=== PATIENT | female | born 1965 | race Caucasian/White ===

== ENCOUNTER 2018-04-19 16:04 | Emergency (ER) | payer BC, OTHER ==
--- OUTSIDE RECORDS SUMMARY | 2018-04-19 16:06 | XMS REPORT | Clinical Summary ---
:1965 Author Organization [facility] Address [address] [place] [address] Care Team Providers Name Role Phone Tracee Begum MD Primary Care Provider Unavailable Allergies Active Allergy Reactions Severity Noted Date Comments Levofloxacin Other (See Comments) 12/25/2015 Myalgias (muscle pain) bilateral knee pain with BLE swelling Current Medications Prescription Sig. Disp. Refills Start Date End Date Status albuterol (PROAIR Inhale 2 puffs 1 Inhaler 0 03/07/2017 Active HFA,PROVENTIL every 6 (six) HFA,VENTOLIN HFA) 90 hours as needed mcg/actuation for wheezing (or inhaler coughing fits). loratadine Take 1 tablet (10 30 tablet 11 06/21/2016 06/21/2017 (CLARITIN) 10 mg mg total) by tablet mouth daily as needed for allergies (or itching or cough). Active Problems Problem Noted Date Acute sinusitis 12/25/2015 Back pain 12/25/2015 Bronchitis 12/25/2015 Cobalamin deficiency 12/25/2015 Blood pressure elevated without history of HTN 12/25/2015 Fatigue 12/25/2015 Insomnia 12/25/2015 Knee pain 12/25/2015 Overview: bilateral Sinusitis 12/25/2015 Vitamin D deficiency 12/25/2015 Cough 10/23/2015 Family History Medical History Relation Name Comments Hyperlipidemia Father Lymphoma Father Diabetes Mother Hypertension Mother Glaucoma Other grandfather Stroke Other grandfather Relation Name Status Comments Father Mother Other grandfather Alive Social History Tobacco Use Types Packs/Day Years Used Date Never Smoker Alcohol Use Drinks/Week oz/Week Comments No Sex Assigned at Date Recorded Not on file Last Filed Vital Signs Not on file Plan of Treatment Health Maintenance Due Date Last Done Comments CERVICAL CANCER SCREENING 1985 BREAST CANCER SCREENING 2014 COLON CANCER SCREENING 2014 SHINGRIX VACCINE (#1) 2014 INFLUENZA VACCINE 06/13/2018 Results Not on fileafter 04/18/2017 Insurance Payer Benefit Plan / Group Subscriber ID Type Phone Address BCBS BCBS CHOICE PPO/FEDERAL EMPL PPO xxxxxxxxxxxx PPO Home: [address] [phone] [place] [phone]
[2018-04-19] MEDS ORDERED: TETANUS & DIPHTHERIA TOX,ADULT 0.5 ML VIAL ONE (16:12)
--- NOTE | 2018-04-19 16:17 | ER ---
Nurse's Notes [facility] Name: Melissa Ghotra Age: 52 yrs Sex: Female : 1965 Arrival Date: 04/19/2018 Time: 16:05 Bed 10 Private MD: Diagnosis: Laceration without foreign body of knee Presentation: 04/19 16:14 Presenting complaint: Patient states: scrapped R knee on nail and is requesting tetanus ss shot. Transition of care: patient was not received from another setting of care. Onset of symptoms was April 19, 2018. Risk Assessment: Do you want to hurt yourself or someone else? Patient reports no desire to harm self or others. Initial Sepsis Screen: Does the patient meet any 2 criteria? No. Patient's initial sepsis screen is negative. Does the patient have a suspected source of infection? No. Patient's initial sepsis screen is negative. Care prior to arrival: None. 16:14 Method Of Arrival: Ambulatory ss 16:14 Acuity: LINCOLN 5 ss Historical: - Allergies: 16:15 No Known Allergies; ss - PSHx: 16:15 None; ss - Immunization history:: Last tetanus immunization: > 10 years ago. - Social history:: Smoking status: Patient/guardian denies using tobacco. - Ebola Screening: : Patient negative for fever greater than or equal to 101.5 degrees Fahrenheit, and additional compatible Ebola Virus Disease symptoms Patient denies exposure to infectious person Patient denies travel to an Ebola-affected area in the 21 days before illness onset. Screenin:16 Abuse screen: Denies threats or abuse. Denies injuries from another. Nutritional ss screening: No deficits noted. Tuberculosis screening: Never had TB. Fall Risk None identified. Assessment: 16:16 General: Appears in no apparent distress. comfortable, Behavior is calm, cooperative. ss Pain: Complains of pain in right knee Pain currently is 3 out of 10 on a pain scale. Quality of pain is described as tender. Neuro: Level of Consciousness is awake, alert, obeys commands. Respiratory: Airway is patent Respiratory effort is even, unlabored. Derm: Skin is pink, warm \T\ dry. Injury Description: Abrasion sustained to right knee. Vital Signs: 16:15 BP 147 / 95; Pulse 72; Resp 15; Temp 97.1(TE); Pulse Ox 97% on R/A; Height 5 ft. 4 in. ss (162.56 cm); Pain 3/10; ED Course: 16:05 Patient arrived in ED. as 16:07 [facility] Vill[facility]real [facility]C [facility] snw 16:07 Giovanni Pan MD is Attending Physician. snw 16:15 Triage completed. ss 16:15 Arm band placed on right wrist. ss 16:16 Patient has correct armband on for positive identification. Bed in low position. Adult ss w/ patient. 16:18 No provider procedures requiring assistance completed. Patient did not have IV access ss during this emergency room visit. 16:27 Brenda Gallagher, RN is Primary Nurse. ss Administered Medications: 16:14 Drug: Tetanus-Diphtheria Toxoid Adult 0.5 ml {Soccer Commentator: [employer]. Exp: ss 06/14/2020. Lot #: [id number]. } Route: IM; Site: right deltoid; 16:32 Follow up: Response: No adverse reaction ss Outcome: 16:16 Discharge ordered by . snw 16:19 Condition: good ss 16:19 Discharge instructions given to patient, family, Instructed on discharge instructions, follow up and referral plans. Demonstrated understanding of instructions, follow-up care. 16:32 Patient left the ED. ss Signatures: Jennifer Villarreal FNP-C IMPORTER OR EXPORTER-CsnCatie Olvera as Brenda Gallagher, RN RN ss
--- NOTE | 2018-04-19 16:17 | EDPHYS ---
Physician Documentation [facility] Name: Melissa Ghotra Age: 52 yrs Sex: Female : 1965 Arrival Date: 04/19/2018 Time: 16:05 Bed 10 Private MD: ED Physician Giovanni Pan HPI: 04/19 16:10 This 52 yrs old Female presents to ER via Unassigned with complaints of Needs snw Tetanus Shot. 16:10 Onset: The symptoms/episode began/occurred suddenly, just prior to arrival. Associated snw signs and symptoms: The patient has no apparent associated signs or symptoms. The patient has not experienced similar symptoms in the past. The patient has been recently seen by a physician:. Pt visiting loved one in the hospital and turned in her seat, right knee struck a nail sticking out and it lacerated the skin. Wound healing cleaned and bandaged the area, Dr. Jason took a look and the injury and suggested a tetanus immunization. Pt to ED for immunization. Historical: - Allergies: 16:15 No Known Allergies; ss - PSHx: 16:15 None; ss - Immunization history:: Last tetanus immunization: > 10 years ago. - Social history:: Smoking status: Patient/guardian denies using tobacco. - Ebola Screening: : Patient negative for fever greater than or equal to 101.5 degrees Fahrenheit, and additional compatible Ebola Virus Disease symptoms Patient denies exposure to infectious person Patient denies travel to an Ebola-affected area in the 21 days before illness onset. ROS: 16:10 Constitutional: Negative for fever, chills, and weight loss, Eyes: Negative for injury, snw pain, redness, and discharge, ENT: Negative for injury, pain, and discharge, Neck: Negative for injury, pain, and swelling, Cardiovascular: Negative for chest pain, palpitations, and edema, Respiratory: Negative for shortness of breath, cough, wheezing, and pleuritic chest pain, Abdomen/GI: Negative for abdominal pain, nausea, vomiting, diarrhea, and constipation, Back: Negative for injury and pain, : Negative for injury, bleeding, discharge, and swelling, MS/Extremity: Negative for injury and deformity, Skin: Positive for injury to right knee, no rash Neuro: Negative for headache, weakness, numbness, tingling, and seizure. Exam: 16:09 Constitutional: This is a well developed, well nourished patient who is awake, alert, snw and in no acute distress. Head/Face: Normocephalic, atraumatic. Eyes: Pupils equal round and reactive to light, extra-ocular motions intact. Lids and lashes normal. Conjunctiva and sclera are non-icteric and not injected. Cornea within normal limits. Periorbital areas with no swelling, redness, or edema. ENT: Nares patent. No nasal discharge, no septal abnormalities noted. Tympanic membranes are normal and external auditory canals are clear. Oropharynx with no redness, swelling, or masses, exudates, or evidence of obstruction, uvula midline. Mucous membranes moist. Neck: Trachea midline, no thyromegaly or masses palpated, and no cervical lymphadenopathy. Supple, full range of motion without nuchal rigidity, or vertebral point tenderness. No Meningismus. MS/ Extremity: Pulses equal, no cyanosis. Neurovascular intact. Full, normal range of motion. Neuro: Awake and alert, GCS 15, oriented to person, place, time, and situation. Cranial nerves II-XII grossly intact. Motor strength 5/5 in all extremities. Sensory grossly intact. Cerebellar exam normal. Normal gait. 16:09 Skin: Appearance: normal except for affected area, injury, laceration(s), the wound is approximately 4 cm(s), with a depth of 1 cm(s), of the right knee, pt with baseline PVD, mottled lower extremities. 16:09 Neuro: Orientation: is normal, appropriate for stated age, to person, place \T\ time. Vital Signs: 16:15 BP 147 / 95; Pulse 72; Resp 15; Temp 97.1(TE); Pulse Ox 97% on R/A; Height 5 ft. 4 in. ss (162.56 cm); Pain 3/10; MDM: 16:09 Patient medically screened. snw 16:17 Data reviewed: vital signs, nurses notes. Data interpreted: Pulse oximetry: on room air snw is 97 %. Interpretation: normal. Counseling: I had a detailed discussion with the patient and/or guardian regarding: the historical points, exam findings, and any diagnostic results supporting the discharge/admit diagnosis, the presence of at least one elevated blood pressure reading (>120/80) during this emergency department visit, the need for outpatient follow up, to return to the emergency department if symptoms worsen or persist or if there are any questions or concerns that arise at home. Special discussion: I have referred the patient to see his PCP for further evaluation of high blood pressure. Based on the history and exam findings, there is no indication for further emergent testing or inpatient evaluation. I discussed with the patient/guardian the need to see the primary care provider for further evaluation of the symptoms. Administered Medications: 16:14 Drug: Tetanus-Diphtheria Toxoid Adult 0.5 ml {Uat Tester: [employer]. Exp: ss 06/14/2020. Lot #: [id number]. } Route: IM; Site: right deltoid; 16:32 Follow up: Response: No adverse reaction ss Disposition: 04/19/18 16:16 Discharged to Home. Impression: Laceration without foreign body of knee. - Condition is Stable. - Discharge Instructions: Laceration Care, Adult, Non-Sutured Laceration, VIS, Tetanus, Diphtheria (Td) - CDC. - Medication Reconciliation Form, Thank You Letter, Antibiotic Education, Prescription Opioid Use form. - Follow up: Private Physician; When: 2 - 3 days; Reason: Recheck today's complaints, Continuance of care, Re-evaluation by your physician. Follow up: Emergency Department; When: As needed; Reason: Worsening of condition. - Problem is new. - Symptoms are unchanged. Addendum: 04/27/2018 11:27 Co-signature as Attending Physician, Giovanni Pan MD. g s Signatures: Jennifer Villarreal, MACIEJ-C PARTS REPRESENTATIVE-Manw Brenda Gallagher RN RN ss Starr, Gregory, MD MD gs Corrections: (The following items were deleted from the chart) 04/19 16:32 16:16 04/19/2018 16:16 Discharged to Home. Impression: Laceration without foreign body ss of knee. Condition is Stable. Forms are Medication Reconciliation Form, Thank You Letter, Antibiotic Education, Prescription Opioid Use. Follow up: Private Physician; When: 2 - 3 days; Reason: Recheck today's complaints, Continuance of care, Re-evaluation by your physician. Follow up: Emergency Department; When: As needed; Reason: Worsening of condition. Problem is new. Symptoms are unchanged. snw
[2018-04-19 17:07] VITALS: BP 147/95; TEMP 97.1; O2SAT 97
== END 2018-04-19 16:32 | disposition home or self-care (01) ==
LOC: ER 16:04
DX: S81.011A Laceration without foreign body, right knee, initial encounter (principal); W22.8XXA Striking against or struck by other objects, initial encounter; Y93.89 Activity, other specified; Y92.230 Patient room in hospital as the place of occurrence of the external cause; Z23 Encounter for immunization
CPT/HCPCS: 90714; 99283

== ENCOUNTER 2019-02-24 14:40 | Inpatient (IN) | payer BC, OTHER ==
--- OUTSIDE RECORDS SUMMARY | 2019-02-24 14:42 | XMS REPORT | Clinical Summary ---
:1965 Author Organization [facility] Address [address] [place] [address] Care Team Providers Name Role Phone Tracee Begum MD Primary Care Provider Unavailable Allergies Active Allergy Reactions Severity Noted Date Comments Levofloxacin Other (See Comments) 12/25/2015 Myalgias (muscle pain) bilateral knee pain with BLE swelling Medications Medication Sig Dispensed Refills Start Date End Date Status albuterol (PROAIR Inhale 2 puffs 1 Inhaler 0 03/07/2017 Active HFA,PROVENTIL every 6 (six) hours HFA,VENTOLIN HFA) 90 as needed for mcg/actuation inhaler wheezing (or coughing fits). Active Problems Problem Noted Date Acute sinusitis 12/25/2015 Back pain 12/25/2015 Bronchitis 12/25/2015 Cobalamin deficiency 12/25/2015 Blood pressure elevated without history of HTN 12/25/2015 Fatigue 12/25/2015 Insomnia 12/25/2015 Knee pain 12/25/2015 Overview: bilateral Sinusitis 12/25/2015 Vitamin D deficiency 12/25/2015 Cough 10/23/2015 Encounters Date Type Specialty Care Team Description 12/24/2018 Telephone Family Medicine Tracee Begum MD after 02/23/2018 Family History Medical History Relation Name Comments Hyperlipidemia Father Lymphoma Father Diabetes Mother Hypertension Mother Glaucoma Other grandfather Stroke Other grandfather Relation Name Status Comments Father Mother Other grandfather Alive Social History Tobacco Use Types Packs/Day Years Used Date Never Smoker Alcohol Use Drinks/Week oz/Week Comments No Sex Assigned at Date Recorded Not on file Job Start Date Occupation Industry Not on file Not on file Not on file Travel History Travel Start Travel End No recent travel history available. Last Filed Vital Signs Not on file Plan of Treatment Health Maintenance Due Date Last Done Comments CERVICAL CANCER SCREENING 1985 BREAST CANCER SCREENING 2014 COLON CANCER SCREENING 2014 SHINGLES VACCINES (#1) 2014 INFLUENZA VACCINE 06/13/2019 Results Not on fileafter 02/23/2018 Insurance Payer Benefit Plan / Group Subscriber ID Type Phone Address BCBS BCBS CHOICE PPO/FEDERAL EMPL PPO xxxxxxxxxxxx PPO Advance Directives Patient has advance care planning documents on file. For more information, please contact:Twan [id number] [place] [address]
[2019-02-24 16:15] LABS: Absolute Lymphocytes (CBC) 0.9 K/uL (0.7-4.9); Absolute Monocytes 0.7 K/uL (0.1-1.3); Absolute Neutrophil 3.1 K/uL (1.8-8.0); Basophils % 0.8 % (0-1.3); Eosinophils % 0.3 % (0-4.4); Hematocrit 45.9 % (36.0-45.0); Lymphocytes % 18.3 % (15.3-44.8); MPV 7.6 fL (7.6-11.3); Monocytes % 14.7 % (3.3-12.3); RBC Red Blood Cell Count 4.62 M/uL (3.86-4.86)
[2019-02-24 16:18] LABS: Protime INR 1.52
[2019-02-24 16:38] LABS: Albumin 3.3 g/dL (3.4-5.0); Bilirubin Total 3.3 mg/dL (0.2-1.0); Magnesium 2.1 mg/dL (1.8-2.4); Potassium 3.8 mmol/L (3.5-5.1); Protein, Total 6.8 g/dL (6.4-8.2); Troponin (Emerg Dept Use Only) 0.03 ng/mL (0.0-0.045)
[2019-02-24] MEDS ORDERED: FUROSEMIDE 100 MG/10 ML VIAL IV ONE (16:41)
--- NOTE | 2019-02-24 16:43 | ER ---
Nurse's Notes [facility] Name: Melissa Ghotra Age: 53 yrs Sex: Female : 1965 Arrival Date: 02/24/2019 Time: 14:41 Bed 4 Private MD: Diagnosis: Acute systolic (congestive) heart failure;Anasarca Presentation: 02/24 14:57 Presenting complaint: Patient states: "I am just all swollen all over and it's been aa5 like this for months, I used to take a water pill but I don't anymore". Pt reports mild SOB. Pt also reports cough. Pt states "my kidneys went into failure and I had sepsis last time this happened". Transition of care: patient was not received from another setting of care. Onset of symptoms was February 2019. Risk Assessment: Do you want to hurt yourself or someone else? Patient reports no desire to harm self or others. Care prior to arrival: None. 14:57 Method Of Arrival: Wheelchair aa5 14:57 Acuity: LINCOLN 2 aa5 UNDERWEAR WELTER: 14:57 LMP N/A - Irregular menses aa5 Historical: - Allergies: 14:56 No Known Allergies; aa5 - PMHx: 14:56 None; aa5 - PSHx: 14:55 None; aa5 14:56 denisse hand sx; aa5 - Immunization history:: Flu vaccine is not up to date. - Social history:: Smoking status: Patient/guardian denies using tobacco. - Ebola Screening: : No symptoms or risks identified at this time. Screenin:43 Abuse screen: Denies threats or abuse. Nutritional screening: No deficits noted. la1 Tuberculosis screening: No symptoms or risk factors identified. Fall Risk None identified. Assessment: 16:42 General: Appears in no apparent distress. Behavior is calm, cooperative. Pain: Denies la1 pain. Neuro: Level of Consciousness is awake, alert, obeys commands, Oriented to person, place, time, situation. Cardiovascular: Heart tones S1 S2 present. Respiratory: Airway is patent Trachea midline Respiratory effort is even, unlabored, Respiratory pattern is regular, symmetrical, Breath sounds are diminished bilaterally. GI: Abdomen is obese, Bowel sounds present X 4 quads. Abd is soft X 4 quads. : No signs and/or symptoms were reported regarding the genitourinary system. 17:17 Reassessment: assisted patient to bedside commode to void and have small BM. Patient is ss grateful for care received. Awaiting room assignment. Pt back in exam bed on monitors, call light within reach. 18:01 Reassessment: Patient appears in no apparent distress at this time. No changes from la1 previously documented assessment. Patient and/or family updated on plan of care and expected duration. Pain level reassessed. Patient is alert, oriented x 3, equal unlabored respirations, skin warm/dry/pink. Vital Signs: 14:57 BP 102 / 53; Pulse 126; Resp 20 S; Temp 98.1(O); Pulse Ox 97% on R/A; Pain 0/10; aa5 17:25 BP 130 / 74; Pulse 122; Resp 20; Pulse Ox 93% on R/A; la1 18:32 BP 101 / 76; Pulse 122; Resp 16; Pulse Ox 97% on 2 lpm NC; la1 20:09 BP 117 / 71; Pulse 120; Resp 18; Pulse Ox 96% on 2 lpm NC; la1 ED Course: 14:41 Patient arrived in ED. as 14:53 Arm band placed on. aa5 14:58 Triage completed. aa5 15:15 George Ingram, TONYA is Primary Nurse. la1 15:19 Huy Grace PA is PHCP. jr8 15:19 Sandro Robledo MD is Attending Physician. jr8 16:30 XRAY Chest (1 view) In Process Unspecified. EDMS 16:41 Marce Tidwell MD is Hospitalizing Provider. jr8 16:43 Bed in low position. Call light in reach. Side rails up X 1. la1 16:44 Inserted saline lock: 20 gauge in right antecubital area, using aseptic technique. la1 Blood collected. 20:09 No provider procedures requiring assistance completed. Patient admitted, IV remains in la1 place. Administered Medications: 16:30 Drug: Lasix 60 mg Route: IVP; Site: right forearm; bp 18:31 Drug: Metoprolol 5 mg Route: IVP; Site: right forearm; la1 Outcome: 16:42 Decision to Hospitalize by Provider. jr8 20:13 Admitted to Med/surg accompanied by tech, via stretcher, with oxygen, with chart. la1 20:13 Condition: stable 20:13 Instructed on the need for admit. 20:14 Patient left the ED. la1 Signatures: Dispatcher [employer] Catie Rene Audri, RN RN aa5 Brenda Gallagher RN RN ss Huy Grace PA PA jr8 George Ingram RN RN la1 Luis Carlos Guerrero RN RN bp Corrections: (The following items were deleted from the chart) 14:57 Presenting complaint: Patient states: "I am just all swollen all over and it's aa5 been like this for months, I used to take a water pill but I don't anymore". Pt reports mild SOB aa5 14:57 Acuity: LINCOLN 3 aa5 aa5 14:59 Acuity: LINCOLN 2 ss aa5
--- NOTE | 2019-02-24 16:43 | EDPHYS ---
Physician Documentation [facility] Name: Melissa Ghotra Age: 53 yrs Sex: Female : 1965 Arrival Date: 02/24/2019 Time: 14:41 Bed 4 Private MD: GEMMA Physician Sandro Robledo HPI: 02/24 15:30 This 53 yrs old Female presents to ER via Wheelchair with complaints of jr8 Abdominal Swelling. 15:30 The patient presents with abdominal distention that is diffuse. total body swelling. jr8 Onset: The symptoms/episode began/occurred gradually, 1 month(s) ago, and became worse 1 week(s) ago. The symptoms do not radiate. Associated signs and symptoms: Pertinent positives: shortness of breath, chills, Pertinent negatives: nausea and vomiting, chest pain, constipation, diarrhea, dysuria, hematuria. The symptoms are described as achy. Modifying factors: the symptoms are aggravated by movement. Severity of pain: in the emergency department the pain is a 4 / 10. The patient has experienced a previous episode, last year. The patient has not recently seen a physician. Patient reports past history of sepsis with BRANDON last year. She states she presented to this hospital then with similar symptoms of total body swelling and SOB. Last month she started experiencing edema which has become progressively more severe. Reports SOB and orthopnea and chills. . [employer]: 14:57 LMP N/A - Irregular menses aa5 Historical: - Allergies: 14:56 No Known Allergies; aa5 - PMHx: 14:56 None; aa5 - PSHx: 14:55 None; aa5 14:56 denisse hand sx; aa5 - Immunization history:: Flu vaccine is not up to date. - Social history:: Smoking status: Patient/guardian denies using tobacco. - Ebola Screening: : No symptoms or risks identified at this time. ROS: 15:30 ENT: Negative for injury, pain, and discharge, Neck: Negative for injury, pain, and jr8 swelling. 15:30 Cardiovascular: Negative for chest pain, palpitations, and edema. 15:30 Neuro: Negative for headache, weakness, numbness, tingling, and seizure. 15:30 Constitutional: Positive for chills, fatigue, Negative for body aches, malaise, weight loss. 15:30 Respiratory: Positive for cough, shortness of breath, on exertion. 15:30 Abdomen/GI: Positive for abdominal distension, Negative for abdominal pain, nausea, vomiting, and diarrhea, constipation. 15:30 : Negative for urinary symptoms, difficulty urinating. 15:30 Skin: Positive for swelling, Negative for lesions, rash. Exam: 16:26 Constitutional: This is a well developed, well nourished patient who is awake, alert, jr8 and in no acute distress. ENT: Nares patent. No nasal discharge, no septal abnormalities noted. Tympanic membranes are normal and external auditory canals are clear. Oropharynx with no redness, swelling, or masses, exudates, or evidence of obstruction, uvula midline. Mucous membranes moist. 16:26 Neuro: Awake and alert, GCS 15, oriented to person, place, time, and situation. Cranial nerves II-XII grossly intact. Motor strength 5/5 in all extremities. Sensory grossly intact. Cerebellar exam normal. Normal gait. 16:26 Cardiovascular: Rate: tachycardic, Rhythm: regular, Pulses: Pulses are 2+ in right radial artery and left radial artery. Heart sounds: normal, no murmur, no rub, no gallop, Edema: 3+ to entire body (anasarca) . 16:26 Respiratory: the patient does not display signs of respiratory distress, Respirations: tachypnea, Breath sounds: wheezing: inspiratory expiratory that is mild, is heard diffusely. 16:26 Abdomen/GI: Inspection: obese firm, distended, edema noted, Bowel sounds: normal, Palpation: nontender. 16:26 Musculoskeletal/extremity: ROM: no acute changes, Perfusion: the extremity is mottled, noted to have sluggish capillary refill, in bilateral lower extremities. Vital Signs: 14:57 BP 102 / 53; Pulse 126; Resp 20 S; Temp 98.1(O); Pulse Ox 97% on R/A; Pain 0/10; aa5 17:25 BP 130 / 74; Pulse 122; Resp 20; Pulse Ox 93% on R/A; la1 18:32 BP 101 / 76; Pulse 122; Resp 16; Pulse Ox 97% on 2 lpm NC; la1 20:09 BP 117 / 71; Pulse 120; Resp 18; Pulse Ox 96% on 2 lpm NC; la1 MDM: 15:19 Patient medically screened. jr8 16:30 Awaiting: labs results, X-ray results. jr8 16:38 Data reviewed: vital signs, nurses notes, lab test result(s), EKG, radiologic studies, jr8 plain films. Data interpreted: Pulse oximetry: on room air is 97 %. Interpretation: normal. Counseling: I had a detailed discussion with the patient and/or guardian regarding: the historical points, exam findings, and any diagnostic results supporting the discharge/admit diagnosis, lab results, radiology results, the need for further work-up and treatment in the hospital. 16:41 Physician consultation: Marce Tidwell MD was called at 16:41, was contacted at 16:41, jr8 regarding admission, to the telemetry unit. consult, patient's condition, and will see patient. 02/24 15:31 Order name: Basic Metabolic Panel; Complete Time: 16:40 jr8 02/24 15:31 Order name: CBC with Diff; Complete Time: 16:33 jr8 02/24 15:31 Order name: LFT's; Complete Time: 16:40 jr8 02/24 15:31 Order name: Magnesium; Complete Time: 16:40 jr8 02/24 15:31 Order name: NT PRO-BNP; Complete Time: 16:40 jr8 02/24 15:31 Order name: PT-INR; Complete Time: 16:33 jr8 02/24 15:31 Order name: Troponin (emerg Dept Use Only); Complete Time: 16:40 jr8 02/24 15:31 Order name: XRAY Chest (1 view); Complete Time: 17:27 02/24 15:31 Order name: EKG; Complete Time: 15:32 02/24 15:31 Order name: Cardiac monitoring; Complete Time: 15:43 8 02/24 15:31 Order name: EKG - Nurse/Tech; Complete Time: 15:43 02/24 15:31 Order name: IV Saline Lock; Complete Time: 16:27 jr02/24 15:31 Order name: Labs collected and sent; Complete Time: 16:27 jr8 02/24 15:31 Order name: O2 Per Protocol; Complete Time: 15:43 02/24 15:31 Order name: O2 Sat Monitoring; Complete Time: 15:43 Administered Medications: 16:30 Drug: Lasix 60 mg Route: IVP; Site: right forearm; bp 18:31 Drug: Metoprolol 5 mg Route: IVP; Site: right forearm; la1 Disposition: 02/25 09:07 Co-signature as Attending Physician, Sandro Robledo MD I agree with the assessment and dima plan of care. Disposition: 02/24/19 16:42 Hospitalization ordered by Marce Tidwell for Inpatient Admission. Preliminary diagnosis are Acute systolic (congestive) heart failure, Anasarca. - Bed requested for Telemetry/MedSurg (Inpatient). - Status is Inpatient Admission. la1 - Condition is Fair. - Problem is new. - Symptoms have improved. UTI on Admission? No Signatures: Dispatcher [employer] EDFloresita Mullen RN RN dw Anderson, Corey, MD MD cha Calderon, Audri, RN RN aa5 Huy Grace PA PA jr8 George Ingram RN RN la1 Luis Carlos Guerrero RN RN bp Corrections: (The following items were deleted from the chart) 02/24 18:05 16:42 Hospitalization Ordered by Marce Tidwell MD for Inpatient Admission. Preliminary dw diagnosis is Acute systolic (congestive) heart failure; Anasarca. Bed requested for Telemetry/MedSurg (Inpatient). Status is Inpatient Admission. Condition is Fair. Problem is new. Symptoms have improved. UTI on Admission? No. jr8 20:14 18:05 02/24/2019 16:42 Hospitalization Ordered by Marce Tidwell MD for Inpatient la1 Admission. Preliminary diagnosis is Acute systolic (congestive) heart failure; Anasarca. Bed requested for Telemetry/MedSurg (Inpatient). Status is Inpatient Admission. Condition is Fair. Problem is new. Symptoms have improved. UTI on Admission? No. dw
--- NOTE | 2019-02-24 17:23 | RAD REPORT ---
EXAM DESCRIPTION: RAD - Chest Single View - 02/24/2019 4:29 pm CLINICAL HISTORY: Dyspnea COMPARISON: November 2017 TECHNIQUE: AP portable chest image was obtained 1610 hours . FINDINGS: Lung volumes are normal. However, portable technique and very large body habitus limit ass essment. Cardiac silhouette is enlarged but not clearly different from comparison. Body habitus accen tuates this effect. Significant failure or volume overload are doubtful. No peripheral mass or consol idation. No measurable pleural effusion and no pneumothorax. No acute bony abnormality seen. No acute aortic findings suspected. IMPRESSION: Exam has significant limitation as detailed. However, no acute cardiopulmonary finding s een.
[2019-02-24] MEDS ORDERED: METOPROLOL TARTRATE 5 MG/5 ML INJ IV ONE (18:26)
--- NOTE | 2019-02-24 18:52 | P.HP ---
Certification for Inpatient Patient admitted to: Inpatient With expected LOS: >2 Midnights Practitioner: I am a practitioner with admitting privileges, knowledge of patient current condition, hospital course, and medical plan of care. Services: Services provided to patient in accordance with Admission requirements found in Title 42 Section 412.3 of the Code of Federal Regulations Patient History Date of Service: 02/24/19 Reason for admission: Generalized edema History of Present Illness: This is a 53-year-old obese female admitted for generalized edema. Per patient , all of this started when she was admitted for sepsis a few months ago. Since then, she has been retaining fluid. She has complaints of abdominal distention. For the past 1 month, she states that she saw herself swell up. She kept thinking that it would get better but swelling has been progressively worsening, where now she cannot really walk. She states that she cannot lay flat either due to shortness of breath. In the ER, patient was tachycardic to heart rate of 126. She was also tachypneic. Blood pressure was stable. She was satting well on room air though was having shortness of breath with lying back or much exertion. Her labs were remarkable for a elevated BNP and a creatinine of 1.31. Her chest x- ray was without any acute abnormalities. At the time of my exam, She was AAOx3, in no acute distress but significant generalized pitting edema Allergies levofloxacin [From Levaquin] Allergy (Verified 11/12/17 05:16) Hives/Rash No Known Allergies Allergy (Uncoded 11/12/17 09:51) Unknown Home medications list reviewed: Yes Home Medications: Albuterol Neb [Proventil 0.083% Neb Soln] 2.5 mg NEB [id number] PRN #30 amp Cholecalciferol (Vitamin D3) [Vitamin D 5,000 IU Cap*] 5,000 unit PO DAILY #30 cap 11/24/17 Ensure High Protein 237 ml PO BID can 11/24/17 Ipratropium Neb [Atrovent*] 0.5 mg NEB [id number] PRN #30 amp 11/24/17 Mupirocin Oint [Bactroban 2% Ointment*] 1 appl TOP BID #1 tube 11/24/17 Spironolactone [Aldactone*] 25 mg PO DAILY #30 tab 11/24/17 levoFLOXacin [Levaquin*] 500 mg PO DAILY #14 tab 11/24/17 - Past Medical/Surgical History Diabetic: No -: morbid obesity -: lower extremity cellulitis - Social History Alcohol use: No CD- Drugs: No Caffeine use: No Review of Systems 10-point ROS is otherwise unremarkable Physical Examination - Physical Exam General: Alert, In no apparent distress, Oriented x3 HEENT: Atraumatic, PERRLA, Mucous membr. moist/pink, EOMI, Sclerae nonicteric Neck: Supple, 2+ carotid pulse no bruit, No LAD, Without JVD or thyroid abnormality Respiratory: Clear to auscultation bilaterally, Normal air movement Cardiovascular: Regular rate/rhythm, Normal S1 S2, Edema (severe, 3+ generalized pitting edema (including abdomen, LE, Buttocks, back)) Gastrointestinal: Normal bowel sounds, No tenderness Musculoskeletal: No tenderness Integumentary: No rashes Neurological: Normal gait, Normal speech, Normal strength at 5/5 x4 extr, Normal tone, Normal affect - Studies Laboratory Data (last 24 hrs) 02/24/19 16:07: PT 17.6 H, INR 1.52 02/24/19 16:07: WBC 4.7, Hgb 14.9, Hct 45.9 H, Plt Count 133 L 02/24/19 16:07: Sodium 142, Potassium 3.8, BUN 13, Creatinine 1.31 H, Glucose 78 , Magnesium 2.1, Total Bilirubin 3.3 H, AST 18, ALT 19, Alkaline Phosphatase 51 Assessment and Plan - Problems (Diagnosis) (1) Acute renal injury Onset Date: 11/15/17 Current Visit: No Status: Acute (2) Anasarca Current Visit: No Status: Acute (3) Morbidly obese Current Visit: No Status: Chronic - Plan Admit patient to floor with tele. Aggressive diuresis with IV Lasix Supportive care with oxygen as needed Echo ordered, pending Daily weights Strict in and output Repeat chest x-ray in the a.m. Monitor via morning labs DVT prophylaxis: GI prophylaxis: Diet: Fluid restriction Disposition: Pending symptomatic improvement - Advance Directives Does patient have a Living Will: No Does patient have a Durable POA for Healthcare: No
[2019-02-24] MEDS ORDERED: ONDANSETRON 4 MG/2 ML VIAL IV PRN (19:37)
[2019-02-24 20:48] VITALS: BMI 68.5
[2019-02-24 21:37] LABS: Urine Appearance CLEAR; Urine Bilirubin NEGATIVE (NEG); Urine Blood NEGATIVE (NEG); Urine Color YELLOW; Urine Glucose NEGATIVE (NEG); Urine Protein NEGATIVE (NEG); Urine Specific Gravity <=1.005 (1.005-1.030)
[2019-02-24 21:40] LABS: Urine Microscopic Reflex NO UMIC
[2019-02-24] MEDS: ALBUTEROL 2.5 MG/3 ML NEB SOL NEB SCH (22:50)
[2019-02-24] MEDS: IPRATROPIUM BROM 0.5MG/2.5ML NEB SCH (22:51)
[2019-02-25] MEDS: IPRATROPIUM BROM 0.5MG/2.5ML NEB SCH ×4 (02:00→20:00)
[2019-02-25] MEDS: ALBUTEROL 2.5 MG/3 ML NEB SOL NEB SCH ×4 (02:00→20:00)
[2019-02-25 05:34] LABS: Absolute Lymphocytes (CBC) 1.1 K/uL (0.7-4.9); Absolute Monocytes 0.7 K/uL (0.1-1.3); Absolute Neutrophil 3.1 K/uL (1.8-8.0); Basophils % 1.1 % (0-1.3); Eosinophils % 0.5 % (0-4.4); Lymphocytes % 22.4 % (15.3-44.8); Monocytes % 14.1 % (3.3-12.3); RBC Red Blood Cell Count 4.51 M/uL (3.86-4.86)
--- NOTE | 2019-02-25 05:52 | EKG ---
Test Date: 2019-02-24 Test Time: 15:35:43 Superintendent Factory: FREDDY MEASUREMENT RESULTS: Intervals: Rate: 134 IL: 186 QRSD: 78 QT: 274 QTc: 409 [place]: P: IL: 186 QRS: 165 T: 32 INTERPRETIVE STATEMENTS: Sinus tachycardia with premature atrial complexes Possible Right ventricular hypertrophy Possible Lateral infarct, age undetermined Abnormal ECG Compared to ECG 11/12/2017 02:58:30 Early repolarization no longer present Myocardial infarct finding still present Electronically Signed On 02-25-19 05:52:04 CDT by Sergo Pinto
[2019-02-25 05:54] LABS: Albumin 3.2 g/dL (3.4-5.0); Bilirubin Total 2.9 mg/dL (0.2-1.0); Phosphorus 3.5 mg/dL (2.5-4.9); Potassium 3.6 mmol/L (3.5-5.1); Protein, Total 6.5 g/dL (6.4-8.2)
--- NOTE | 2019-02-25 08:16 | EKG ---
Test Date: 2019-02-24 Test Time: 21:57:44 Pin Inserter Regulator: GO MEASUREMENT RESULTS: Intervals: Rate: 125 DC: QRSD: 76 QT: 352 QTc: 508 [place]: P: DC: QRS: 148 T: 93 INTERPRETIVE STATEMENTS: Sinus tachycardia Possible Lateral infarct, age undetermined Low voltage QRS Abnormal ECG Compared to ECG 02/24/2019 15:35:43 Atrial premature complex(es) no longer present Myocardial infarct finding still present Electronically Signed On 02-25-19 08:15:42 CDT by Sergo Pinto
--- NOTE | 2019-02-25 08:21 | RAD REPORT ---
EXAM DESCRIPTION: RAD - Chest Pa And Lat (2 Views) - 02/25/2019 6:54 am CLINICAL HISTORY: volume overload Chest pain. COMPARISON: Chest Single View dated 02/24/2019; Chest Single View dated 11/14/2017; Chest Single View d ated 11/12/2017; Chest Single View dated 11/12/2017 FINDINGS: Mild interstitial prominence is again noted, appearing mildly improved since the comparati ve study. The heart is moderately enlarged in size. No displaced fractures. IMPRESSION: Mild improvement lung aeration since comparative study.
[2019-02-25] MEDS ORDERED: POTASSIUM CL SA 10 MEQ TAB PO ONE (09:00)
[2019-02-25] MEDS ORDERED: FUROSEMIDE 40 MG/4 ML VIAL IV SCH (09:00)
[2019-02-25] MEDS ORDERED: PHENOL 1.4% ORAL SPRAY 180ML MM PRN (09:22)
[2019-02-25] MEDS: ENOXAPARIN 40 MG/0.4 ML SQ SCH (09:24)
[2019-02-25] MEDS: BENZONATATE 100 MG CAP PO PRN ×3 (10:34→23:53)
[2019-02-25] MEDS: METOPROLOL TAR 25 MG TAB PO SCH ×2 (10:34→17:56)
[2019-02-25] MEDS ORDERED: LORazepam 2 MG/ML VIAL IV ONE (11:48)
--- NOTE | 2019-02-25 11:50 | P.PN ---
Subjective Date of Service: 02/25/19 Chief Complaint: Generalized edema Patient seen and examined at bedside. No family at bedside. Chart reviewed and case discussed with nursing staff. States she is feeling anxious today. Reports no respiratory distress at this time. She would like her oxygen on heart monitor off. She is complaining of sore throat and cough that is more bothersome to her than anything. Reports no improvement in swelling/abdominal distension. Review of Systems 10-point ROS is otherwise unremarkable Physical Examination - Vital Signs Temperature: 97.6 F Blood Pressure: 132/84 Pulse: 180 Respirations: 18 Pulse Ox (%): 93 - Physical Exam General: Alert, Oriented x3, Mild distress (Due to anxiety; no respiratory distress noted, denies any pain) Respiratory: Dull, Crackles/rales Cardiovascular: Edema (Generalized, severe 3+ pitting. No change in pitting edema from yesterday.) Gastrointestinal: No tenderness, Distended - Studies Laboratory Data (last 24 hrs) 02/24/19 16:07: PT 17.6 H, INR 1.52 02/24/19 16:07: WBC 4.7, Hgb 14.9, Hct 45.9 H, Plt Count 133 L 02/24/19 16:07: Sodium 142, Potassium 3.8, BUN 13, Creatinine 1.31 H, Glucose 78 , Magnesium 2.1, Total Bilirubin 3.3 H, AST 18, ALT 19, Alkaline Phosphatase 51 Assessment And Plan - Current Problems (Diagnosis) (1) Acute renal injury Onset Date: 11/15/17 Current Visit: No Status: Acute (2) Anasarca Current Visit: No Status: Acute (3) Morbidly obese Current Visit: No Status: Chronic (4) Tachycardia Current Visit: Yes Status: Acute - Plan Anasarca Aggressive diuresis with IV Lasix - IV Lasix increased to 60 mg b.i.d. Supportive care with oxygen as needed Echo ordered, pending Daily weights - no change in weight from admission. Strict in and output (-600 fluid balance overnight) Repeat chest x-ray with mild improvement Acute renal injury Creatinine continues to be elevated, likely secondary to volume overload. Continue IV diuresis. Will continue to monitor with a.m. labs Tachycardia Anxiety Patient tachycardic up to 180's. Unsure if this is secondary to her cardiac disease versus anxiety. EKG ordered Repeat troponin ordered Denies any chest pain at this time, but endorses feeling anxious. 1 time 0.5 mg IV Ativan. Started patient on metoprolol 25 mg twice a day. Will continue to monitor closely. Morbidly obese She will need education regarding lifestyle modifications and medication compliance. DVT prophylaxis: Lovenox GI prophylaxis: None Diet: Fluid restriction Disposition: Pending symptomatic improvement
--- NOTE | 2019-02-25 12:17 | EKG ---
Test Date: 2019-02-25 Test Time: 10:43:52 Machine Printer Hose: ERICK MEASUREMENT RESULTS: Intervals: Rate: 161 OR: QRSD: 80 QT: 352 QTc: 576 [place]: P: OR: QRS: 164 T: 18 INTERPRETIVE STATEMENTS: Undetermined rhythm possible atrial fibrillation or sinus tachycardia with PAC s Possible Right ventricular hypertrophy Septal infarct, age undetermined Possible Lateral infarct, age undetermined Cannot rule out Inferior infarct, age undetermined Low voltage QRS Abnormal ECG Compared to ECG 02/24/2019 21:57:44 Myocardial infarct finding still present Electronically Signed On 02-25-19 12:17:22 CDT by Sergo Pinto
[2019-02-25] MEDS: FUROSEMIDE 40 MG/4 ML VIAL IV SCH (16:17)
[2019-02-26] MEDS: ALBUTEROL 2.5 MG/3 ML NEB SOL NEB SCH ×4 (02:00→19:39)
[2019-02-26] MEDS: IPRATROPIUM BROM 0.5MG/2.5ML NEB SCH ×4 (02:00→19:39)
[2019-02-26] MEDS: METOPROLOL TAR 25 MG TAB PO SCH ×2 (06:50→17:32)
[2019-02-26 07:33] LABS: Absolute Lymphocytes (CBC) 0.9 K/uL (0.7-4.9); Absolute Monocytes 0.7 K/uL (0.1-1.3); Absolute Neutrophil 3.3 K/uL (1.8-8.0); Basophils % 0.4 % (0-1.3); Eosinophils % 0.2 % (0-4.4); Hematocrit 46.1 % (36.0-45.0); Lymphocytes % 17.9 % (15.3-44.8); MPV 7.9 fL (7.6-11.3); RBC Red Blood Cell Count 4.59 M/uL (3.86-4.86)
--- NOTE | 2019-02-26 07:59 | ECHO ---
HEIGHT: 5 ft 4 in WEIGHT: 392 lb 9.6 oz DATE OF STUDY: 02/25/[address]: Marce Tidwell MD 2-DIMENSIONAL: YES M.MODE: YES DOPPLER: YES COLOR FLOW: YES TDS: YES PORTABLE: NO DEFINITY: NO BUBBLE STUDY: NO DIAGNOSIS: CONGESTIVE HEART FAILURE, VOLUME OVERLOAD CARDIAC HISTORY: CATHERIZATION: NO SURGERY: NO PROSTHETIC VALVE: NO PACEMAKER: NO MEASUREMENTS (cm) DIASTOLIC (NORMALS) SYSTOLIC (NORMALS) IVSd 1.1 (0.6-1.2) LA Diam (1.9-4.0) LVEF 50-55% LVIDd 5.5 (3.5-5.7) LVIDs 4.2 (2.0-3.5) %FS 23% LVPWd 1.0 (0.6-1.2) Ao Diam 3.1 (2.0-3.7) 2 DIMENSIONAL ASSESSMENT: RIGHT ATRIUM: NORMAL LEFT ATRIUM: DILATED RIGHT VENTRICLE: NORMAL LEFT VENTRICLE: NORMAL TRICUSPID VALVE: NORMAL MITRAL VALVE: NORMAL PULMONIC VALVE: NORMAL AORTIC VALVE: SCLEROSIS PERICARDIAL EFFUSION: NONE AORTIC ROOT: NORMAL LEFT VENTRICULAR WALL MOTION: LOWER LIMIT OF NORMAL CONTRACTILITY. DOPPLER/COLOR FLOW: TECHNICALLY DIFFICULT STUDY. COMMENTS: TECHNICALLY DIFFICULT STUDY. NORMAL LEFT VENTRICULAR EJECTION FRACTION. DILATED LEFT ATRIUM. AORTIC SCLEROSIS WITH NO AORTIC STENOSIS. TECHNOLOGIST: Bernard MCMAHAN
[2019-02-26 08:12] LABS: Albumin 3.3 g/dL (3.4-5.0); Bilirubin Total 2.9 mg/dL (0.2-1.0); Potassium 3.8 mmol/L (3.5-5.1); Protein, Total 6.8 g/dL (6.4-8.2)
[2019-02-26] MEDS: ENOXAPARIN 40 MG/0.4 ML SQ SCH (10:49)
[2019-02-26] MEDS: FUROSEMIDE 40 MG/4 ML VIAL IV SCH ×2 (10:49→17:00)
[2019-02-26] MEDS: BENZONATATE 100 MG CAP PO PRN ×2 (10:50→17:58)
--- NOTE | 2019-02-26 15:26 | PN ---
Date of Progress Note: 02/26/2019 Subjective: The patient is seen and examined. Chart reviewed and case discussed with RN. The patie nt is still having significant amount of swelling and abdominal distention, some difficulty breathing . Medications: List reviewed. Physical Examination: Vital Signs: Temperature 98, heart rate 105, blood pressure 115/79, respirations 20, O2 93% on 2 L v ia nasal cannula. General: Awake, alert, oriented x3. Some mild distress. Morbidly obese female. BMI 67.4. CV: S1, S2. Sinus tachycardia. Peripheral pulses weak. Respiratory: Diminished breath sounds. No wheezing or stridor. Gastrointestinal: Abdomen is distended. The patient has diffuse anasarca. Bowel sounds are positiv e. Extremities: No clubbing or cyanosis. The patient has peripheral edema 3+, bilateral lower extremit ies. Neuro: Cranial nerves 2 through 12 intact grossly. No focal neurological deficit. Speech is normal . Laboratory Data: Sodium 141, potassium 3.8, chloride 106, CO2 24, BUN 16, creatinine 1.42, glucose 8 5, calcium 8.6. WBC 5, H and H 14.9 and 46.1, platelets 132, neutrophils 66%. Influenza screen is n egative. Echocardiogram shows EF of 50 to 55%; wall motion, lower limit of normal contractility, dil ated left atrium, aortic sclerosis with no aortic stenosis. Assessment And Plan: 1.Diffuse anasarca. We will continue with diuretics with IV Lasix, O2 p.r.n. Echo showed normal EF . Continue strict I's and O's, daily weights, fluid balance is negative. 2.Acute kidney injury. Kidney function worsening, baseline is around probably 1.7. We will continu e to monitor. Avoid NSAIDs. 3.Tachycardia and anxiety. Troponin levels have been negative, maybe secondary to anxiety. Echocar diogram does show reduced contractility, currently on beta-sonny. Heart rate has come down. 4.Morbid obesity, BMI of 67.4. Recommend bariatric surgery, gastric bypass, once her situation has improved. Plan: We will continue diuretics. SA/MODL Voice ID: [id number] Report ID: [id number]
[2019-02-26] MEDS: guaiFENesin 100 MG/5 ML UCUP PO PRN (21:36)
[2019-02-27] MEDS: IPRATROPIUM BROM 0.5MG/2.5ML NEB SCH ×4 (01:20→20:00)
[2019-02-27] MEDS: ALBUTEROL 2.5 MG/3 ML NEB SOL NEB SCH ×4 (01:20→20:00)
[2019-02-27] MEDS: BENZONATATE 100 MG CAP PO PRN ×3 (01:21→23:31)
[2019-02-27 06:09] LABS: Absolute Lymphocytes (CBC) 1.2 K/uL (0.7-4.9); Absolute Monocytes 0.9 K/uL (0.1-1.3); Absolute Neutrophil 3.7 K/uL (1.8-8.0); Basophils % 0.2 % (0-1.3); Hematocrit 49.9 % (36.0-45.0); Lymphocytes % 20.2 % (15.3-44.8); RBC Red Blood Cell Count 4.94 M/uL (3.86-4.86)
[2019-02-27] MEDS: METOPROLOL TAR 25 MG TAB PO SCH ×2 (06:15→17:44)
[2019-02-27 06:43] LABS: Albumin 3.4 g/dL (3.4-5.0); Bilirubin Total 3.7 mg/dL (0.2-1.0); Potassium 3.6 mmol/L (3.5-5.1); Protein, Total 7.2 g/dL (6.4-8.2)
[2019-02-27] MEDS ORDERED: POTASSIUM CL SA 10 MEQ TAB PO ONE (08:30)
[2019-02-27] MEDS: FUROSEMIDE 40 MG/4 ML VIAL IV SCH ×2 (09:22→17:00)
[2019-02-27] MEDS: ENOXAPARIN 40 MG/0.4 ML SQ SCH (09:22)
--- NOTE | 2019-02-27 17:41 | RAD REPORT ---
EXAM DESCRIPTION: US - Renal Ultrasound-Complete - 02/27/2019 5:35 pm CLINICAL HISTORY: Acute renal insufficiency FINDINGS: The examination is limited secondary to body habitus The right kidney measures 11 cm with an increased echotexture. The left kidney measures 11 cm with an increased echotexture. Hydronephrosis is not seen. A bladder poorly evaluated as it is decompressed IMPRESSION: Increased renal echotexture consistent with parenchymal disease
--- NOTE | 2019-02-27 20:09 | PN ---
Date of Progress Note: 02/27/2019 History: The patient is seen and examined, chart reviewed, and case discussed with RN. The patient is still having significant shortness of breath and edema. The patient did put out 500 mL yesterday with negative urine output. Medications: List reviewed. Physical Examination: Vital Signs: Temperature 98.6, heart rate 117, blood pressure 82/55, respirations 18, O2 96% on 3 L via nasal cannula. General: Awake, alert, oriented x3. Ill-appearing female, morbidly obese, Has some mild respiratory distress. CV: S1, S2. Sinus tachycardia. Peripheral pulses present. Respiratory: Diminished breath sounds. Crackles heard. No wheezing or stridor. Gastrointestinal: Abdomen is soft, nontender, nondistended. Positive bowel sounds. Extremities: No clubbing, cyanosis. The patient has diffuse edema in upper and lower extremities. Neuro: Nonfocal. Laboratory Data: Sodium 138, potassium 3.6, chloride 103, CO2 26, BUN 18, creatinine 1.68, glucose 85, calcium 8.8. AST 725, ALT 360. WBC 5.8, H and H 16.1 and 49.9, and platelets 146. Assessment And Plan: A 53-year-old female with: 1. Diffuse anasarca. Continue on diuretics. The patient does have negative fluid balance. Weight has decreased from 399 to 395. Echo does show normal ejection fraction. Continue with strict I's and O's, daily weights. 2. Acute kidney injury. Creatinine is 1.68 with a baseline close to 1.3 or so. We will consult Nephrology. Avoid NSAIDs. 3. Sinus tachycardia: Currently on beta-sonny. 4. Generalized anxiety disorder. 5. Morbid obesity, body mass index >40. 6. Deep vein thrombosis prophylaxis addressed. 7. Elevated liver enzymes, likely from passive congestion. Plan: Renal ultrasound. Nephrology consultation. SA/MODL Voice ID: [id number] Report ID: [id number] MTDD
[2019-02-28] MEDS: ALBUTEROL 2.5 MG/3 ML NEB SOL NEB SCH ×4 (02:00→19:28)
[2019-02-28] MEDS: IPRATROPIUM BROM 0.5MG/2.5ML NEB SCH ×4 (02:00→19:28)
[2019-02-28] MEDS: guaiFENesin 100 MG/5 ML UCUP PO PRN (04:36)
[2019-02-28] MEDS: METOPROLOL TAR 25 MG TAB PO SCH ×2 (05:45→19:48)
[2019-02-28 06:27] LABS: Absolute Lymphocytes (CBC) 1.3 K/uL (0.7-4.9); Absolute Monocytes 0.9 K/uL (0.1-1.3); Absolute Neutrophil 3.9 K/uL (1.8-8.0); Basophils % 0.5 % (0-1.3); Eosinophils % 0.1 % (0-4.4); Hematocrit 48.5 % (36.0-45.0); Lymphocytes % 20.8 % (15.3-44.8); MPV 8.2 fL (7.6-11.3); RBC Red Blood Cell Count 4.79 M/uL (3.86-4.86)
[2019-02-28 06:49] LABS: Albumin 3.3 g/dL (3.4-5.0); Bilirubin Total 3.2 mg/dL (0.2-1.0); Potassium 4.2 mmol/L (3.5-5.1); Protein, Total 6.6 g/dL (6.4-8.2)
[2019-02-28] MEDS ORDERED: MANNITOL 25% 12.5 GM/50 ML VIAL IV ONE ×2 (08:45→18:00)
[2019-02-28] MEDS: FUROSEMIDE 40 MG/4 ML VIAL IV SCH ×2 (09:00→17:18)
[2019-02-28] MEDS: ENOXAPARIN 40 MG/0.4 ML SQ SCH (10:14)
[2019-02-28] MEDS: NYSTATIN PWDR 100000 UNIT/GM TOP SCH ×2 (14:02→20:47)
--- NOTE | 2019-02-28 16:20 | PN ---
Date of Progress Note: 02/28/2019 Patient is seen and examined. Chart reviewed and case discussed with RN and Dr. Luu. Patient is still having significant amount of anasarca. Her weight has decreased. She is still requiring supplemental oxygen and does not feel well. Medications: List reviewed. Physical Examination: Vital Signs: Temperature 97.1, heart rate 112, blood pressure 100/65, respirations 18, O2 of 95% on 4 L via nasal cannula. General: Awake, alert, oriented x3, ill-appearing female, morbidly obese, BMI of 49.7. CV: S1 and S2. Sinus tachycardia. Peripheral pulses present. Respiratory: Diminished breath sounds. Some crackles present. Gastrointestinal: Abdomen is distended. Bowel sounds positive. No tenderness. Extremities: No clubbing, cyanosis. Patient has diffuse edema of bilateral upper and lower extremities. Skin: Patient has tinea corporis in the abdominal skin folds and gluteal folds. Laboratory Data: Sodium 137, potassium 4.2, chloride 102, CO2 of 25, BUN 22, creatinine 1.6, glucose 88, calcium 8.7, AST 647, ALT 400. WBC 6.1, H and H 15.6 and 48.5, platelets 142. Renal ultrasound shows increased renal echotexture consistent with parenchymal disease. No hydronephrosis. Assessment And Plan: A 53-year-old female with: 1. Diffuse anasarca. We will continue on diuretics. Appreciate Dr. Luu' s input. He has started some mannitol. Patient's daily weight has gone down again to 389 from 395. We will continue to monitor I's and O's and daily weights. 2. Acute kidney injury. Creatinine level is still elevated above patient's baseline. We will continue to monitor. Avoid NSAIDs. 3. Sinus tachycardia. Continue beta-sonny. 4. Generalized anxiety disorder. 5. Morbid obesity. BMI 49.7. 6. Elevated liver enzymes, likely due to anasarca. We will continue to monitor. Slightly improved today. 7. DVT prophylaxis with Lovenox. SA/MODL Voice ID: [id number] Report ID: [id number] JOE
--- NOTE | 2019-02-28 17:50 | P.CNS ---
Date of Consult: 02/28/19 Reason for Consult: BRANDON with Anasarca Requesting Physician: Bernadette Cortez Chief Complaint: Generalized edema History of Present Illness: This is a 53-year-old obese female admitted for generalized edema. Per patient , all of this started when she was admitted for sepsis a few months ago. Since then, she has been retaining fluid. She has complaints of abdominal distention. For the past 1 month, she states that she saw herself swell up. She kept thinking that it would get better but swelling has been progressively worsening, where now she cannot really walk. She states that she cannot lay flat either due to shortness of breath. 15:30 This 53 yrs old Female presents to ER via Wheelchair with complaints of jr8 Abdominal Swelling. 15:30 The patient presents with abdominal distention that is diffuse. total body swelling. jr8 Onset: The symptoms/episode began/occurred gradually, 1 month(s) ago, and became worse 1 week(s) ago. The symptoms do not radiate. Associated signs and symptoms : Pertinent positives: shortness of breath, chills, Pertinent negatives: nausea and vomiting, chest pain, constipation, diarrhea, dysuria, hematuria. The symptoms are described as achy. Modifying factors: the symptoms are aggravated by movement. Severity of pain: in the emergency department the pain is a 4 / 10. The patient has experienced a previous episode, last year. The patient has not recently seen a physician. Patient reports past history of sepsis with BRANDON last year. She states she presented to this hospital then with similar symptoms of total body swelling and SOB. Last month she started experiencing edema which has become progressively more severe. Reports SOB and orthopnea and chills. Allergies No Known Allergies Allergy (Verified 02/24/19 20:50) Home medications list reviewed: Yes Home Medications: NK [No Home Meds] 02/24/19 - Past Medical/Surgical History Diabetic: No -: morbid obesity -: lower extremity cellulitis -: kidney issues due to sepsis last 2017 -: hand surgeries - Family History Mother Medical History: Hypertension, Cancer Father Medical History: Cancer - Social History Smoking Status: Former smoker Alcohol use: No CD- Drugs: No Caffeine use: No Place of Residence: Home Review of Systems 10-point ROS is otherwise unremarkable General: Weakness, Malaise Respiratory: SOB with Excertion Cardiovascular: Edema Integumentary: Lesions, Bruising Neurological: Weakness Physical Examination Temp Pulse Resp BP Pulse Ox 97.8 F 101 H 20 101/65 91 02/28/19 12:00 02/28/19 17:18 02/28/19 12:00 02/28/19 17:18 02/28/19 12:00 General: Oriented x3, Cooperative HEENT: Mucous membr. moist/pink Neck: Supple, No LAD Respiratory: Expiratory wheezes Cardiovascular: Regular rate/rhythm, No rubs, Edema Gastrointestinal: Soft and benign, Non-distended, No guarding Musculoskeletal: No clubbing, No contractures Integumentary: No rashes, Skin breakdown, Skin lesion, Cyanosis Blood work reviewed in the chart. Initial serum creatinine 1.31 Imagings Data: 2 DIMENSIONAL ASSESSMENT: RIGHT ATRIUM: NORMAL LEFT ATRIUM: DILATED RIGHT VENTRICLE: NORMAL LEFT VENTRICLE: NORMAL TRICUSPID VALVE: NORMAL MITRAL VALVE: NORMAL PULMONIC VALVE: NORMAL AORTIC VALVE: SCLEROSIS PERICARDIAL EFFUSION: NONE AORTIC ROOT: NORMAL LEFT VENTRICULAR WALL MOTION: LOWER LIMIT OF NORMAL CONTRACTILITY. DOPPLER/COLOR FLOW: TECHNICALLY DIFFICULT STUDY. COMMENTS: TECHNICALLY DIFFICULT STUDY. NORMAL LEFT VENTRICULAR EJECTION FRACTION. DILATED LEFT ATRIUM. AORTIC SCLEROSIS WITH NO AORTIC STENOSIS. EXAM DESCRIPTION: US - Renal Ultrasound-Complete - 02/27/2019 5:35 pm CLINICAL HISTORY: Acute renal insufficiency FINDINGS: The examination is limited secondary to body habitus The right kidney measures 11 cm with an increased echotexture. The left kidney measures 11 cm with an increased echotexture. Hydronephrosis is not seen. A bladder poorly evaluated as it is decompressed IMPRESSION: Increased renal echotexture consistent with parenchymal disease. EXAM DESCRIPTION: RAD - Chest Pa And Lat (2 Views) - 02/25/2019 6:54 am CLINICAL HISTORY: volume overload Chest pain. COMPARISON: Chest Single View dated 02/24/2019; Chest Single View dated 11/14/2017 ; Chest Single View dated 11/12/2017; Chest Single View dated 11/12/2017 FINDINGS: Mild interstitial prominence is again noted, appearing mildly improved since the comparative study. The heart is moderately enlarged in size. No displaced fractures. IMPRESSION: Mild improvement lung aeration since comparative study. Conclusions/Impression: A/ BRANDON likely CRS. CKD III. Acute hepatitis of unclear etiology. Hepatic congestion? Hypoalbuminemia. Secondary Polycythemia. Diastolic CHF, A/C. Anasarca. Hypervolemia. Hypotension of unclear etiology. Distal LE Cyanosis. Morbid Obesity. P/ Continue current POC and Medications. The patient would benefit from aggressive diuresis but her treatment is limited by severe hypotension. Give Mannitol as an osmotic diuretic. Continue Lasix as tolerated. Start Midrodrine due to hypotension; titrate as needed. No NSAIDs. AM labs. Daily weight. Case discussed with Dr. Cortez. Thank you kindly for the consultation.
[2019-02-28] MEDS: MIDODRINE HCL 5 MG TABLET PO SCH ×2 (18:10→20:46)
[2019-02-28 22:49] LABS: UR MICROALBUMIN 1.9 mg/dL (< 1.9)
[2019-03-01] MEDS: IPRATROPIUM BROM 0.5MG/2.5ML NEB SCH ×4 (02:05→19:56)
[2019-03-01] MEDS: ALBUTEROL 2.5 MG/3 ML NEB SOL NEB SCH ×4 (02:05→19:56)
[2019-03-01 05:34] LABS: Absolute Lymphocytes (CBC) 1.3 K/uL (0.7-4.9); Absolute Monocytes 0.8 K/uL (0.1-1.3); Basophils % 0.4 % (0-1.3); Eosinophils % 0.4 % (0-4.4); Hematocrit 49.5 % (36.0-45.0); Lymphocytes % 21.7 % (15.3-44.8); Monocytes % 12.9 % (3.3-12.3); RBC Red Blood Cell Count 4.86 M/uL (3.86-4.86)
[2019-03-01] MEDS: METOPROLOL TAR 25 MG TAB PO SCH (06:00)
[2019-03-01 06:24] LABS: Albumin 3.4 g/dL (3.4-5.0); Bilirubin Total 2.6 mg/dL (0.2-1.0); Phosphorus 3.7 mg/dL (2.5-4.9); Potassium 3.6 mmol/L (3.5-5.1); Thyroid Stimulating Hormone 1.3 uIU/mL (0.360-3.740); Uric Acid 13.8 mg/dL (2.6-6.0)
[2019-03-01] MEDS ORDERED: COSYNTROPIN 0.25 MG VIAL IV ONE (07:45)
[2019-03-01] MEDS ORDERED: SODIUM CHLORIDE 0.9% 10ML INJ IV ONE (07:45)
[2019-03-01] MEDS: POTASSIUM CL SA 10 MEQ TAB PO ONE (08:46)
[2019-03-01] MEDS: ENOXAPARIN 40 MG/0.4 ML SQ SCH (08:46)
[2019-03-01] MEDS: MIDODRINE HCL 5 MG TABLET PO SCH ×4 (08:46→21:20)
[2019-03-01] MEDS: FUROSEMIDE 40 MG/4 ML VIAL IV SCH ×3 (08:51→17:48)
[2019-03-01] MEDS: NYSTATIN PWDR 100000 UNIT/GM TOP SCH ×2 (08:53→21:00)
--- NOTE | 2019-03-01 10:19 | P.CNS ---
Date of Consult: 03/01/19 Chief Complaint: Generalized edema RESPIRATORY FAILURE History of Present Illness: Patient is 53 years of age admitted with generalized edema and anasarca as been sick for a month no prior history of cardiopulmonary problems is done progressively worse all of the recent cold-like symptom on admission patient was tachypneic short of breath currently on oxygen also has renal insufficiency patient does not smoke denies any cough sputum hemoptysis Allergies No Known Allergies Allergy (Verified 02/24/19 20:50) Home Medications: NK [No Home Meds] 02/24/19 - Past Medical/Surgical History Diabetic: No -: morbid obesity -: lower extremity cellulitis -: kidney issues due to sepsis last 2017 -: hand surgeries - Family History Mother Medical History: Hypertension, Cancer Father Medical History: Cancer - Social History Smoking Status: Former smoker Alcohol use: No CD- Drugs: No Caffeine use: No Place of Residence: Home Review of Systems General: Weakness Respiratory: Shortness of Breath Cardiovascular: Edema Physical Examination Temp Pulse Resp BP Pulse Ox 96.9 F 122 H 20 99/55 L 96 03/01/19 08:00 03/01/19 08:51 03/01/19 08:00 03/01/19 08:51 03/01/19 08:00 General: Alert, Moderate distress HEENT: Atraumatic Neck: Supple Respiratory: Expiratory wheezes Cardiovascular: Regular rate/rhythm, Edema (Gross lower extremity edema 1 in the left foot) Gastrointestinal: Normal bowel sounds, Soft and benign - Problems (1) Anasarca Current Visit: No Status: Acute Plan: Patient is 53 years of age admitted with gross anasarca she has renal insufficiency I suspect that she has obesity hyperventilation syndrome or obstructive sleep apnea of ordered ABGs the probably going to need a BiPAP patient is polycythemic is not on home oxygen patient has chronic renal insufficiency chest x-ray shows impressive cardiomegaly he probably has underlying diastolic dysfunction echocardiogram done I have ordered ABG tsh is satisfactory urinalysis was negative I have ordered some blood cultures patient has a wound in the right foot is quite possible that she may be septic
[2019-03-01] MEDS: BENZONATATE 100 MG CAP PO PRN (12:20)
--- NOTE | 2019-03-01 12:59 | RAD REPORT ---
EXAM DESCRIPTION: US - Lower Extremity Arterial Bilat - 03/01/2019 12:49 pm CLINICAL HISTORY: No pulses within the feet COMPARISON: None FINDINGS: Limited examination was performed to assess dorsalis pedis and posterior tibial arteries. Right and left dorsalis pedis and right and left posterior tibial arteries are patent and demonstrate biphasic blood flow. IMPRESSION: Blood flow is visualized within the dorsalis pedis and posterior tibial arteries bilater ally. Mild distal arterial disease is present
--- NOTE | 2019-03-01 13:41 | RAD REPORT ---
EXAM DESCRIPTION: US - Abdomen Exam Complete - 03/01/2019 12:49 pm CLINICAL HISTORY: Abdominal pain/elevated liver function test enzymes FINDINGS: The liver has an increased echotexture. It is poorly evaluated. Gallbladder is not imaged. Pancreas is poorly seen secondary to body habitus. Kidneys were evaluated on the February 27, 2019 exam The abdominal aorta and inferior vena cava not imaged IMPRESSION: Increased hepatic echotexture consistent with fatty infiltration or inflammation. Examination is extremely suboptimal secondary to body habitus. If clinically indicated further evalua tion with CT scan could be obtained
[2019-03-01 15:18] LABS: Arterial Blood Carboxyhemoglob 1.1 % (0-1.5); Blood Gas Oxyhemoglobin 84.2 % (94-97); Blood O2 Saturation 85.6 % (92-98.5)
--- NOTE | 2019-03-01 16:22 | RAD REPORT ---
EXAM DESCRIPTION: RAD - Chest Single View - 03/01/2019 3:59 pm CLINICAL HISTORY: PICC line placement COMPARISON: February 25 FINDINGS: Portable chest was obtained following placement of a right upper extremity PICC line. The catheter tip is in the proximal SVC.
[2019-03-01] MEDS ORDERED: MANNITOL 25% 12.5 GM/50 ML VIAL IV ONE (16:30)
[2019-03-01] MEDS ORDERED: AMILORIDE HCL 5 MG TABLET PO ONE (16:30)
[2019-03-01] MEDS ORDERED: POTASSIUM CL SA 10 MEQ TAB PO ONE (17:00)
--- NOTE | 2019-03-01 17:05 | PN ---
Date of Progress Note: 03/01/2019 History: The patient is seen and examined. Chart reviewed and case discussed with RN, Dr. Treadwell, Dr. Luu, and Dr. Pedraza. The patient continues to have severe shortness of breath. Does not m ove from her recliner. Has been having her feet down with severe edema cutting off her circulation. The patient also refusing labs draws initially due to being stuck multiple times. Medications: List reviewed. Physical Examination: Vital Signs: Temperature 96.9, heart rate 122, blood pressure 99/55, respirations 20, O2 96% on 4 L via nasal cannula. General: Awake, alert, oriented x3, ill-appearing female, morbidly obese. BMI 66. CV: S1, S2. Sinus tachycardia. Pulses not palpable. Respiratory: Diminished breath sounds. Crackles heard. Gastrointestinal: Abdomen is distended. Bowel sounds positive. No tenderness to palpation. Extremities: The patient has diffuse anasarca throughout the body including upper and lower extremit ies. Neurologic: Nonfocal. Skin: The patient has discoloration of her feet with some cyanosis present. Laboratory Data: Sodium 138, potassium 3.6, chloride 101, CO2 29, BUN 23, creatinine 1.59, glucose 8 6, uric acid 13.8, calcium 8.6, phosphorus 3.7, magnesium 2. AST 398, ALT 348, total bilirubin [place] 2[place] [address], albumin 3.4, TSH 1.3. Procalcitonin and cortisol levels pending. WBC 6.2, H and H 16.1 and 49.5, platelets 155. ABG pending. Hepatitis panel pending. Blood cultures being obtained . Assessment And Plan: A 53-year-old female with: 1.Diffuse anasarca, on Lasix and mannitol. The patient not tolerating higher doses due to her blood pressure. Has been started on midodrine. The patient's weight continues to decrease, currently at 387 pounds. We will continue to monitor I's and O's and daily weights. Appreciate Dr. Luu's inp ut. 2.Acute kidney injury. Creatinine currently elevated, stabilized. We will avoid NSAIDs and continu e to monitor. 3.Acute on chronic diastolic heart failure. Continue diuretics. Cardiology has been consulted. Ec hocardiogram reviewed. 4.Polycythemia, unclear etiology. 5.Morbid obesity. BMI 66. 6.Elevated liver enzymes and total bilirubin, likely due to anasarca. We will check abdominal ultra sound. 7.Deep venous thrombosis prophylaxis with Lovenox renally dosed. 8.Right foot wound. We will obtain blood cultures. Check procalcitonin level. No signs of sepsis. The patient's white count is normal. The patient has been afebrile, is hypotensive. 9.Hypotension. Metoprolol discontinued. The patient is still tachycardic. Rule out sepsis. 10.Lower extremity arterial compromise. Pulses nonpalpable or dopplerable. We will obtain arterial Doppler test, likely due to severe anasarca. We will elevate the patient's feet. Plan: Overall guarded prognosis. /CHENG Voice ID: [id number] Report ID: [id number]
--- NOTE | 2019-03-01 21:05 | P.PN ---
Date of Service: 03/01/19 Vital Signs Temp Pulse Resp BP Pulse Ox 97.2 F 125 H 20 109/60 90 L 03/01/19 16:00 03/01/19 17:48 03/01/19 16:00 03/01/19 17:48 03/01/19 16:00 Medications Albuterol Sulfate (Proventil 0.083% Neb Soln) 2.5 mg NEB [id number] SMITA Stop: 03/26/19 20:01 Last Admin: 03/01/19 19:56 Dose: 2.5 mg Amiloride HCl (Midamor) 10 mg PO BIDL SMITA Stop: 04/01/19 09:01 Benzonatate (Tessalon Perle) 100 mg PO TID PRN PRN Reason: COUGH Stop: 03/27/19 09:23 Last Admin: 03/01/19 12:20 Dose: 100 mg Calcitriol (Rocaltrol) 0.5 mcg PO DAILY SMITA Stop: 04/01/19 09:01 Cholecalciferol (Vitamin D 5,000 Iu Cap) 5,000 unit PO DAILY SMITA Stop: 04/01/19 09:01 Enoxaparin Sodium (Lovenox 40 Mg Inj) 40 mg SQ DAILY SMITA Stop: 03/27/19 09:01 Last Admin: 03/01/19 08:46 Dose: 40 mg Furosemide (Lasix) 40 mg IV BIDL [facility] Stop: 03/31/19 17:38 Last Admin: 03/01/19 17:48 Dose: 40 mg Guaifenesin (Robitussin 100mg/5ml) 100 mg PO QID PRN PRN Reason: COUGH Stop: 03/28/19 20:32 Last Admin: 02/28/19 04:36 Dose: 100 mg Ipratropium [place] (Atrovent Neb) 0.5 mg NEB [id number] [facility] Stop: 03/26/19 20:01 Last Admin: 03/01/19 19:56 Dose: 0.5 mg Midodrine (Proamatine) 10 mg PO TID [facility] Stop: 03/31/19 10:01 Last Admin: 03/01/19 14:00 Dose: 10 mg Nystatin (Mycostatin (Powder)) 1 appl TOP BID SMITA Stop: 03/30/19 09:07 Last Admin: 03/01/19 08:53 Dose: 1 appl Ondansetron HCl (Zofran) 4 mg IV Q6HP PRN PRN Reason: NAUSEA / VOMITING Stop: 03/26/19 19:38 Phenol (Phenaseptic [place]) 2 appl MM Q4H PRN PRN Reason: SORE THROAT Stop: 03/27/19 09:23 Sodium Chloride (Normal Saline Flush) 10 ml IV BID SMITA Stop: 03/26/19 21:01 Last Admin: 03/01/19 08:53 Dose: 10 ml Assessment/ Plan: Nephrology. CPS stable without CP. +SOB +RG +urine ouput. Persistent edema. No acute events overnight. Vitals, medications, blood work and imaging reviewed in the chart. General: Oriented x3, Cooperative HEENT: Mucous membr. moist/pink Neck: Supple, No LAD Respiratory: Expiratory wheezes Cardiovascular: Regular rate/rhythm, No rubs, Edema Gastrointestinal: Soft and benign, Non-distended, No guarding Musculoskeletal: No clubbing, No contractures Integumentary: No rashes, Skin breakdown, Skin lesion, Cyanosis Blood work reviewed in the chart. Initial serum creatinine 1.31 Imagings Data: 2 DIMENSIONAL ASSESSMENT: RIGHT ATRIUM: NORMAL LEFT ATRIUM: DILATED RIGHT VENTRICLE: NORMAL LEFT VENTRICLE: NORMAL TRICUSPID VALVE: NORMAL MITRAL VALVE: NORMAL PULMONIC VALVE: NORMAL AORTIC VALVE: SCLEROSIS PERICARDIAL EFFUSION: NONE AORTIC ROOT: NORMAL LEFT VENTRICULAR WALL MOTION: LOWER LIMIT OF NORMAL CONTRACTILITY. DOPPLER/COLOR FLOW: TECHNICALLY DIFFICULT STUDY. COMMENTS: TECHNICALLY DIFFICULT STUDY. NORMAL LEFT VENTRICULAR EJECTION FRACTION. DILATED LEFT ATRIUM. AORTIC SCLEROSIS WITH NO AORTIC STENOSIS. EXAM DESCRIPTION: US - Renal Ultrasound-Complete - 02/27/2019 5:35 pm CLINICAL HISTORY: Acute renal insufficiency FINDINGS: The examination is limited secondary to body habitus The right kidney measures 11 cm with an increased echotexture. The left kidney measures 11 cm with an increased echotexture. Hydronephrosis is not seen. A bladder poorly evaluated as it is decompressed IMPRESSION: Increased renal echotexture consistent with parenchymal disease. EXAM DESCRIPTION: RAD - Chest Pa And Lat (2 Views) - 02/25/2019 6:54 am CLINICAL HISTORY: volume overload Chest pain. COMPARISON: Chest Single View dated 02/24/2019; Chest Single View dated 11/14/2017 ; Chest Single View dated 11/12/2017; Chest Single View dated 11/12/2017 FINDINGS: Mild interstitial prominence is again noted, appearing mildly improved since the comparative study. The heart is moderately enlarged in size. No displaced fractures. IMPRESSION: Mild improvement lung aeration since comparative study. Conclusions/Impression: A/ BRANDON likely CRS. CKD III. Acute hepatitis of unclear etiology. Hepatic congestion? Hypoalbuminemia. Chronic respiratory failure with hypoxia and hypercarbia. Hypoventilation syndrome. MASON? Secondary Polycythemia. Diastolic CHF, A/C. Anasarca. Hypervolemia. Hypotension of unclear etiology. Distal LE Cyanosis. Morbid Obesity. P/ Continue current POC and Medications. The patient would benefit from aggressive diuresis but her treatment is limited by severe hypotension. Intermittent Mannitol as tolerated. Continue Lasix as tolerated. Give Amiloride with Lasix. Replete potassium. Increase Midrodrine due to hypotension. May benefit from Bipap therapy. No NSAIDs. AM labs. Daily weight. Case discussed with Dr. Cortez.
[2019-03-01 21:21] LABS: Urine Appearance CLEAR; Urine Bilirubin NEGATIVE (NEG); Urine Blood 3+ (NEG); Urine Color YELLOW; Urine Glucose NEGATIVE (NEG); Urine Protein NEGATIVE (NEG); Urine Urobilinogen 0.2 mg/dL (0.2-1.0)
[2019-03-01 22:01] LABS: Urine Bacteria <20 /HPF (<20); Urine Culture Reflex Order NOT NEEDED
[2019-03-02] MEDS: ALBUTEROL 2.5 MG/3 ML NEB SOL NEB SCH ×5 (02:00→21:00)
[2019-03-02] MEDS: IPRATROPIUM BROM 0.5MG/2.5ML NEB SCH ×4 (02:00→21:00)
[2019-03-02 06:10] LABS: Albumin 3.4 g/dL (3.4-5.0); Bilirubin Total 2.6 mg/dL (0.2-1.0); Potassium 3.8 mmol/L (3.5-5.1); Uric Acid 13.8 mg/dL (2.6-6.0)
[2019-03-02 06:14] LABS: Absolute Lymphocytes (CBC) 1.4 K/uL (0.7-4.9); Absolute Monocytes 0.8 K/uL (0.1-1.3); Basophils % 0.2 % (0-1.3); Eosinophils % 0.4 % (0-4.4); Hematocrit 47.5 % (36.0-45.0); Lymphocytes % 18.9 % (15.3-44.8); MPV 7.8 fL (7.6-11.3); RBC Red Blood Cell Count 4.74 M/uL (3.86-4.86)
[2019-03-02] MEDS: FUROSEMIDE 40 MG/4 ML VIAL IV SCH ×2 (09:00→17:22)
[2019-03-02] MEDS ORDERED: POTASSIUM CL SA 10 MEQ TAB PO ONE (09:00)
[2019-03-02] MEDS: MIDODRINE HCL 5 MG TABLET PO SCH ×3 (09:27→20:49)
[2019-03-02] MEDS: CALCITROL 0.25 MCG CAP PO SCH (09:28)
[2019-03-02] MEDS: VITAMIN D 5,000 UNIT CAP PO SCH (09:29)
[2019-03-02] MEDS: ENOXAPARIN 40 MG/0.4 ML SQ SCH (09:30)
[2019-03-02] MEDS: AMILORIDE HCL 5 MG TABLET PO SCH ×2 (09:34→17:21)
[2019-03-02] MEDS: BENZONATATE 100 MG CAP PO PRN ×2 (09:35→20:49)
[2019-03-02] MEDS: NYSTATIN PWDR 100000 UNIT/GM TOP SCH ×2 (09:36→20:49)
--- NOTE | 2019-03-02 10:16 | EKG ---
Test Date: 2019-03-02 Test Time: 01:19:39 [employer] Agent: RT Vázquez MEASUREMENT RESULTS: Intervals: Rate: 124 [place]: QRSD: 88 QT: 382 QTc: 548 [place]: P: [place]: QRS: 158 T: 64 INTERPRETIVE STATEMENTS: Accelerated Junctional rhythm Possible Right ventricular hypertrophy Septal infarct, age undetermined Possible Lateral infarct, age undetermined Abnormal ECG Compared to ECG 02/25/2019 10:43:52 Accelerated junctional rhythm now present Myocardial infarct finding still present Electronically Signed On 03-02-19 10:15:22 CDT by Reggie Pedraza
--- NOTE | 2019-03-02 10:54 | CON ---
Date of Consultation: 03/01/2019 Reason For Consultation: Possible congestive heart failure. History Of Present Illness: Ms. Ghotra is a 53-year-old with a rather complicated history at the pre sent. Her only previous history in the past was sepsis about a year ago. Apparently, since then, hardy coleman has not felt well. She came in initially on 02/24/2019 with abdominal swelling. She had an EKG at one point that showed possible atrial fibrillation with low voltage. She has a normal chest x-ray a nd normal echocardiogram. She had a renal ultrasound showing parenchymal disease. Her main symptoms right now are abdominal swelling, coughing, chills. She is morbidly obese, was found to have some c ellulitis. She has renal injury stage III, hypoalbuminemia, polycythemia, hypotension, lower extremi ty cyanosis, anasarca, hypervolemic. Creatinine is 1.59. She has elevated liver function tests. De nies chest pain. She denies palpitations. Denies any syncope. Past Medical History: Otherwise negative. Allergies: NONE. Review of Systems: Negative. Social History: Negative. Medications: At home are none. Physical Examination: General: She is morbidly obese, having moderate respiratory distress, having to sit up, coughing, wh eezing, hypotensive. Vital Signs: Blood pressure is approximately 82-90 systolic. Afebrile. HEENT: Negative. Neck: Supple. No bruit. Chest: Wheezing throughout. Cardiac: Normal. Abdomen: Obese. Extremities: Cyanosis in the bilateral with edema, approximately 2+. Diagnostic Data: As stated earlier. Impression And Plan: 1.Acute kidney injury stage 3, probably this was causing her hypervolemia. 2.Hypotension. 3.Lower extremity cyanosis. 4.Elevated liver function tests. 5.Morbid obesity. 6.Low albumin. 7.Polycythemia. 8.Possible diastolic congestive heart failure, although I doubt it. The patient has been seen by Nephrology. Midodrine, Lasix, and mannitol have been added. I suggest more aggressive pulmonary treatment with antibiotics, possibly steroid. Maybe consider Pulmonary con sult. I would definitely get a blood culture and make sure we are not dealing with any recurrent sep sis. Her liver enzymes need to be evaluated further. I will discuss the case with Dr. Cortez. No fu rther cardiac recommendations at this point. I agree with Nephrology assessment. NB/MODL Voice ID: [id number] Report ID: [id number]
--- NOTE | 2019-03-02 15:30 | RAD REPORT ---
EXAM DESCRIPTION: RAD - Chest Single View - 03/02/2019 2:57 pm CLINICAL HISTORY: Shortness of breath COMPARISON: March 01 TECHNIQUE: AP portable chest image was obtained 1453 hours . FINDINGS: No new lung parenchymal process. Cardiac silhouette remains enlarged. Vasculature is simil ar to comparison. PICC line remains in good position. No measurable pleural effusion and no pneumotho rax. No acute bony abnormality seen. No acute aortic findings suspected. IMPRESSION: No new lung parenchymal process. Cardiomegaly similar to comparison.
--- NOTE | 2019-03-02 16:30 | PN ---
Date of Progress Note: 03/02/2019 Subjective: The patient seen and examined, chart reviewed and case discussed with RN, Dr. Pedraza and Dr. Treadwell. The patient last night requested to become DNR/DNI, however, code status was not changed as bean sorter deferred decision to myself, the attending. I spoke with the patient today. I explained to her that the implications of her decision would mean that if she were to have a Code Blue situation, she would and would not be resuscitated. She then changed her mind stating that she will think about it over the weekend. It should be noted that the patient was on the ventilator on her previous admission. The patient has mother and sister. She has been in contact with her mother recently, who also disagrees with her DNR decision. At this time, the patient will like more time to think about her code status. The patient also refused her Lasix today. She is also refusing to get up and move out of the chair. The patient is noncompliant. Medications: List reviewed. Objective: Vital signs: Temperature 97, heart rate 124, blood pressure 115/63 , respirations 20, O2 99% on 4 L via nasal cannula. General: Awake, alert, oriented x3. Elderly female, morbidly obese. BMI 66. CV: S1, S2. Sinus tachycardia. Respiratory: Diminished breath sounds. No wheezing or stridor. Gastrointestinal: Abdomen is distended. Bowel sounds positive. No tenderness to palpation. Extremities: No clubbing or cyanosis. The patient has diffuse anasarca with swelling of the upper and lower extremities as well as her abdomen. Neuro: Nonfocal. Laboratory Data: WBC 7.2, H and H 15.6 and 47.5, platelets 169. Sodium 140, potassium 3.8, chloride 101, CO2 30, BUN 24, creatinine 1.54, glucose 107, calcium 8.9, AST 213, ALT 261, albumin 3.4. Procalcitonin less than 0.05. Blood cultures, no growth to date. Assessment And Plan: A 53-year-old female with: 1. Diffuse anasarca, likely due to her chronic kidney disease. Continue Lasix and mannitol. The patient's current weight is 382 pounds. Continue to monitor I's and O's and daily weights. Nephrology on board. 2. Acute on chronic kidney injury. We will continue to monitor. Avoid NSAIDs. Creatinine slightly improved. 3. Acute on chronic diastolic heart failure. Continue diuretics. Appreciate Dr. Pedraza's input. 4. Polycythemia, unclear etiology. 5. Morbid obesity. Body mass index 66. 6. Arrhythmia. We will obtain EKG. 7. Elevated liver enzymes, likely due to anasarca. Abdominal ultrasound did not show any significant abnormalities. 8. Right foot wound. Wound cultures obtain. Procalcitonin level is negative. No signs of sepsis. White count is normal. No indication for antibiotics at this time. The patient is afebrile. 9. Hypotension, improved. No signs of sepsis. 10. Deep venous thrombosis prophylaxis with Lovenox renally dosed. 11. Lower extremity pedal cyanosis. Arterial Dopplers negative for stenosis.. 12. Overall poor prognosis. 13. Noncompliance intentional. /MODL Voice ID: [id number] Report ID: [id number] [facility]
[2019-03-02] MEDS: guaiFENesin 100 MG/5 ML UCUP PO PRN (23:39)
[2019-03-03] MEDS: IPRATROPIUM BROM 0.5MG/2.5ML NEB SCH ×4 (01:45→20:00)
[2019-03-03] MEDS: ALBUTEROL 2.5 MG/3 ML NEB SOL NEB SCH ×2 (01:45→07:26)
[2019-03-03 04:50] LABS: Potassium 3.5 mmol/L (3.5-5.1)
[2019-03-03] MEDS: BENZONATATE 100 MG CAP PO PRN ×2 (05:52→20:55)
[2019-03-03] MEDS ORDERED: POTASSIUM CL SA 10 MEQ TAB PO ONE (09:00)
[2019-03-03] MEDS: ENOXAPARIN 40 MG/0.4 ML SQ SCH (09:00)
[2019-03-03] MEDS: VITAMIN D 5,000 UNIT CAP PO SCH (09:01)
[2019-03-03] MEDS: guaiFENesin 100 MG/5 ML UCUP PO PRN ×2 (09:02→23:28)
[2019-03-03] MEDS: CALCITROL 0.25 MCG CAP PO SCH (09:02)
[2019-03-03] MEDS: AMILORIDE HCL 5 MG TABLET PO SCH ×2 (09:03→16:28)
[2019-03-03] MEDS: MIDODRINE HCL 5 MG TABLET PO SCH ×3 (09:03→20:55)
[2019-03-03] MEDS: NYSTATIN PWDR 100000 UNIT/GM TOP SCH ×2 (09:05→20:57)
[2019-03-03] MEDS: FUROSEMIDE 40 MG/4 ML VIAL IV SCH ×2 (09:47→16:29)
--- NOTE | 2019-03-03 10:14 | RAD REPORT ---
EXAM DESCRIPTION: RAD - Foot Right 2 View - 03/03/2019 9:48 am CLINICAL HISTORY: Foot pain FINDINGS: A limited two view series obtained. No fracture or dislocation seen. If patient continues have symptoms to suggest an occult fracture the n a three-view plain-film series would be recommended
[2019-03-03] MEDS: LEVALBUTEROL 1.25 MG/3 ML NEB NEB SCH ×2 (13:38→20:00)
[2019-03-03] MEDS: MUPIROCIN 2% OINT 22GM TUBE TOP SCH ×2 (13:45→20:56)
[2019-03-03] MEDS: CEPHALEXIN 500 MG CAP PO SCH ×2 (13:46→17:27)
--- NOTE | 2019-03-03 14:07 | PN ---
Date of Progress Note: 03/02/2019 The patient was seen initially on 03/01/2019. History Of Present Illness: Ms. Ghotra has many issues. She basically has an acute injury, hypotens ion. She has lower extremity cyanosis, cellulitis, elevated liver function tests, morbid obesity, lo w albumin, polycythemia, and possible diastolic congestive heart failure despite a normal echocardiog ilir. Was seen by Nephrology, was recommended to have midodrine, Lasix, and mannitol, but apparentl y has been refusing her Lasix and refusing some of pulmonary treatment. I had recommended we get a b lood culture and possibly a Pulmonary consultation. Apparently, the patient had asked Dr. Cortez to b e a DNR. She has shown some improvement in her creatinine function. Her blood pressure has improved . Does not seem to be any sign of sepsis at this point. Continuing to have some issues with complia nce with her. I will be available for questions. There is really no need for any further cardiac wo rkup at this point. I agree with her present regimen. LAVERNE/CHENG Voice ID: [id number] Report ID: [id number]
--- NOTE | 2019-03-03 16:07 | PN ---
Date of Progress Note: 03/03/2019 Subjective: The patient is seen and examined. Chart reviewed, and case discussed with RN. The patient agreed to [place] catheter for close urine output monitoring. She is refusing to get up out of the bed or the chair, stating that her feet hurt due to use of restroom with commode. She does report some pain in her right foot. She states that she stubbed her toe yesterday. Medications: List reviewed. Physical Examination: Vital Signs: Temperature 97.8, heart rate 122, blood pressure 111/80, respirations 20, O2 of 90% on 4 L via nasal cannula. General: Awake, alert, oriented x3. An ill-appearing female, in some mild distress, morbidly obese, BMI 65. CV: S1 and S2. Sinus tachycardia. Peripheral pulses not palpable. Respiratory: Diminished breath sounds. No wheezing or stridor. Crackles present. Gastrointestinal: Abdomen is moderately distended due to anasarca. Bowel sounds are positive. Nontender. Extremities: No clubbing or cyanosis. The patient has diffuse peripheral edema , upper and lower extremities. Neurologic: Nonfocal. Skin: The patient has blisters on the right foot with now some surrounding erythema and laceration to the third toe with tenderness to palpation. Laboratory Data: Sodium 141, potassium 3.5, chloride 102, CO2 of 32, BUN 21, creatinine 1.18, glucose 101, calcium 8.9. WBC is pending. Blood cultures pending. Foot x-ray showing no fracture or dislocation. Assessment: A 53-year-old female with: 1. Diffuse anasarca secondary to chronic kidney disease and possibly congestive heart failure. The patient is on mannitol and Lasix. We will increase dose. The patient's weight down to 381 pounds today. 2. Ndpkx-eo-vxciwvv kidney injury. Creatinine is normalized. Avoid NSAIDs. We will continue to monitor. 3. Awuxe-kh-ycwuhmv diastolic heart failure. Continue diuretics. Monitor I' s and O's and daily weight. 4. Polycythemia. 5. Morbid obesity, BMI 66. 6. Arrhythmia. EKG shows sinus tachycardia. 7. Elevated liver enzymes, likely due to anasarca, improving. Hepatitis panel is pending. 8. Right foot ulceration and laceration of the third toe. X-ray does not show any fractures. We will cover with some antibiotics for gram-positive coverage. Procalcitonin negative. No signs of sepsis. WBC count is normal. The patient is also afebrile. 9. Hypotension, improving. 10. Lower extremity cyanosis, likely due to severe edema. Arterial Dopplers negative for any stenosis. 11. Noncompliance, intentional. 12. Deep venous thrombosis prophylaxis with Lovenox renally dosed. Plan: As above. The patient may need ultrafiltration. We will discuss with Nephrology. CHIRAG Voice ID: [id number] Report ID: [id number] MTDD
[2019-03-04] MEDS: CEPHALEXIN 500 MG CAP PO SCH ×4 (00:58→17:59)
[2019-03-04] MEDS: LEVALBUTEROL 1.25 MG/3 ML NEB NEB SCH ×4 (02:00→19:45)
[2019-03-04] MEDS: IPRATROPIUM BROM 0.5MG/2.5ML NEB SCH ×4 (02:00→19:45)
[2019-03-04 05:28] LABS: Potassium 3.5 mmol/L (3.5-5.1)
[2019-03-04] MEDS ORDERED: POTASSIUM CL SA 10 MEQ TAB PO ONE ×2 (09:00→09:41)
[2019-03-04] MEDS: ENOXAPARIN 40 MG/0.4 ML SQ SCH (09:21)
[2019-03-04] MEDS: VITAMIN D 5,000 UNIT CAP PO SCH (09:21)
[2019-03-04] MEDS: CALCITROL 0.25 MCG CAP PO SCH (09:21)
[2019-03-04] MEDS: FUROSEMIDE 40 MG/4 ML VIAL IV SCH ×2 (09:21→18:00)
[2019-03-04] MEDS: MIDODRINE HCL 5 MG TABLET PO SCH ×3 (09:22→22:29)
[2019-03-04] MEDS: AMILORIDE HCL 5 MG TABLET PO SCH ×4 (09:22→22:29)
[2019-03-04] MEDS: MUPIROCIN 2% OINT 22GM TUBE TOP SCH ×2 (09:24→21:00)
[2019-03-04] MEDS: NYSTATIN PWDR 100000 UNIT/GM TOP SCH ×2 (09:24→21:00)
--- NOTE | 2019-03-04 09:50 | P.PN ---
Date of Service: 03/04/19 Vital Signs Temp Pulse Resp BP Pulse Ox 97.7 F 129 H 18 105/61 93 03/04/19 08:00 03/04/19 08:00 03/04/19 08:00 03/04/19 08:00 03/04/19 08:00 Medications Amiloride HCl (Midamor) 10 mg PO BIDL [facility] Stop: 04/01/19 09:01 Last Admin: 03/04/19 09:22 Dose: 10 mg Benzonatate (Tessalon Perle) 100 mg PO TID PRN PRN Reason: COUGH Stop: 03/27/19 09:23 Last Admin: 03/03/19 20:55 Dose: 100 mg Calcitriol (Rocaltrol) 0.5 mcg PO DAILY [facility] Stop: 04/01/19 09:01 Last Admin: 03/04/19 09:21 Dose: 0.5 mcg Cephalexin HCl (Keflex) 500 mg PO Q6HR [facility]; Protocol Stop: 04/02/19 12:01 Last Admin: 03/04/19 05:36 Dose: 500 mg Cholecalciferol (Vitamin D 5,000 Iu Cap) 5,000 unit PO DAILY [facility] Stop: 04/01/19 09:01 Last Admin: 03/04/19 09:21 Dose: 5,000 unit Enoxaparin Sodium (Lovenox 40 Mg Inj) 40 mg SQ DAILY [facility] Stop: 03/27/19 09:01 Last Admin: 03/04/19 09:21 Dose: 40 mg Furosemide (Lasix) 60 mg IV BIDL [facility] Stop: 04/02/19 09:01 Last Admin: 03/04/19 09:21 Dose: 60 mg Guaifenesin (Robitussin 100mg/5ml) 100 mg PO QID PRN PRN Reason: COUGH Stop: 03/28/19 20:32 Last Admin: 03/03/19 23:28 Dose: 100 mg Ipratropium Hugo (Atrovent Neb) 0.5 mg NEB [id number] [facility] Stop: 03/26/19 20:01 Last Admin: 03/04/19 02:00 Dose: 0.5 mg Levalbuterol HCl (Xopenex) 1.25 mg NEB [id number] [facility] Stop: 04/02/19 14:01 Last Admin: 03/04/19 07:56 Dose: 1.25 mg Mannitol (Mannitol 12.5 Gm/50 Ml Vial) 25 gm IV Q6H [facility] Stop: 03/04/19 16:01 Midodrine (Proamatine) 10 mg PO TID [facility] Stop: 03/31/19 10:01 Last Admin: 03/04/19 09:22 Dose: 10 mg Mupirocin (Bactroban 2% Ointment) 1 appl TOP BID [facility] Stop: 04/02/19 12:01 Last Admin: 03/04/19 09:24 Dose: 1 appl Nystatin (Mycostatin (Powder)) 1 appl TOP BID [facility] Stop: 03/30/19 09:07 Last Admin: 03/04/19 09:24 Dose: 1 appl Ondansetron HCl (Zofran) 4 mg IV Q6HP PRN PRN Reason: NAUSEA / VOMITING Stop: 03/26/19 19:38 Phenol (Phenaseptic [place]) 2 appl MM Q4H PRN PRN Reason: SORE THROAT Stop: 03/27/19 09:23 Last Admin: 03/02/19 20:48 Dose: 2 appl Potassium Chloride (Klor-Con 10 Meq Tab) 40 meq PO 1X ONE Stop: 03/04/19 09:42 Sodium Chloride (Normal Saline Flush) 10 ml IV BID [facility] Stop: 03/26/19 21:01 Last Admin: 03/04/19 09:23 Dose: 10 ml Assessment/ Plan: Nephrology. CPS stable without CP or SOB. +RG +urine ouput. Persistent edema. No acute events overnight. Vitals, medications, blood work and imaging reviewed in the chart. General: Oriented x3, Cooperative HEENT: Mucous membr. moist/pink Neck: Supple, No LAD Respiratory: Expiratory wheezes Cardiovascular: Regular rate/rhythm, No rubs, Edema Gastrointestinal: Soft and benign, Non-distended, No guarding Musculoskeletal: No clubbing, No contractures Integumentary: No rashes, Skin breakdown, Skin lesion, Cyanosis Blood work reviewed in the chart. Initial serum creatinine 1.31 Imagings Data: 2 DIMENSIONAL ASSESSMENT: RIGHT ATRIUM: NORMAL LEFT ATRIUM: DILATED RIGHT VENTRICLE: NORMAL LEFT VENTRICLE: NORMAL TRICUSPID VALVE: NORMAL MITRAL VALVE: NORMAL PULMONIC VALVE: NORMAL AORTIC VALVE: SCLEROSIS PERICARDIAL EFFUSION: NONE AORTIC ROOT: NORMAL LEFT VENTRICULAR WALL MOTION: LOWER LIMIT OF NORMAL CONTRACTILITY. DOPPLER/COLOR FLOW: TECHNICALLY DIFFICULT STUDY. COMMENTS: TECHNICALLY DIFFICULT STUDY. NORMAL LEFT VENTRICULAR EJECTION FRACTION. DILATED LEFT ATRIUM. AORTIC SCLEROSIS WITH NO AORTIC STENOSIS. EXAM DESCRIPTION: US - Renal Ultrasound-Complete - 02/27/2019 5:35 pm CLINICAL HISTORY: Acute renal insufficiency FINDINGS: The examination is limited secondary to body habitus The right kidney measures 11 cm with an increased echotexture. The left kidney measures 11 cm with an increased echotexture. Hydronephrosis is not seen. A bladder poorly evaluated as it is decompressed IMPRESSION: Increased renal echotexture consistent with parenchymal disease. EXAM DESCRIPTION: RAD - Chest Pa And Lat (2 Views) - 02/25/2019 6:54 am CLINICAL HISTORY: volume overload Chest pain. COMPARISON: Chest Single View dated 02/24/2019; Chest Single View dated 11/14/2017 ; Chest Single View dated 11/12/2017; Chest Single View dated 11/12/2017 FINDINGS: Mild interstitial prominence is again noted, appearing mildly improved since the comparative study. The heart is moderately enlarged in size. No displaced fractures. IMPRESSION: Mild improvement lung aeration since comparative study. Conclusions/Impression: A/ BRANDON likely CRS. CKD III. Acute hepatitis of unclear etiology. Hepatic congestion? Hypoalbuminemia. Chronic respiratory failure with hypoxia and hypercarbia. Hypoventilation syndrome. MASON? Secondary Polycythemia. Diastolic CHF, A/C. Anasarca. Hypervolemia. Hypotension of unclear etiology. Distal LE Cyanosis. Right toe ulcer. Morbid Obesity. P/ Continue current POC and Medications. The patient would benefit from aggressive diuresis but her treatment is limited by severe hypotension. Intermittent Mannitol as tolerated. Continue Lasix and Amiloride; will titrate as tolerated. Replete potassium as ordered. Midrodrine for hypotension. May benefit from Bipap therapy. No NSAIDs. AM labs. Daily weight.
[2019-03-04] MEDS ORDERED: FUROSEMIDE 40 MG/4 ML VIAL IV SCH (10:00)
[2019-03-04] MEDS: acetaZOLAMIDE 250 MG TAB PO SCH (11:45)
[2019-03-04] MEDS: MANNITOL 25% 12.5 GM/50 ML VIAL IV SCH ×2 (11:45→18:00)
--- NOTE | 2019-03-04 14:53 | PN ---
Date of Progress Note: 03/04/2019 Subjective: The patient was seen and examined. Chart reviewed and case discussed with RN. Medications: List reviewed. Physical Examination: Vital Signs: Temperature 97.7, heart rate 129, blood pressure 105/61, respirations 18, O2 of 93% on 3 L via nasal cannula. General: Awake, alert, and oriented x3. Some mild distress, morbidly obese female. CVS: S1 and S2. Sinus tachycardia. Peripheral pulses not palpable manually. Respiratory: Diminished breath sounds. Gastrointestinal: Abdomen is soft and nontender. Positive bowel sounds. Distended. Extremities: No clubbing or cyanosis. The patient has diffuse anasarca with severe edema of the lower and upper extremities. Neurologic: Nonfocal. Laboratory Data: Sodium 143, potassium 3.5, chloride 102, CO2 of 33, BUN 20, creatinine 1.14, glucose 107, and calcium 8.9. Hepatitis panel pending. Blood cultures, no growth to date. C. diff assay is also pending. Assessment And Plan: A 53-year-old female with. 1. Diffuse anasarca secondary to chronic kidney disease and congestive heart failure. Continue diuretics. The patient refusing daily weights. Fluid balance is negative. 2. Albwr-zp-ekikpmb kidney injury. Creatinine normalized. Avoid NSAIDs. Appreciate Nephrology input. 3. Uoppq-wi-kdigjrw diastolic heart failure. Continue monitoring inputs and outputs, diuretics, and daily weight. Beta-sonny was held due to hypotension. 4. Arrhythmia, currently in sinus tachycardia. 5. Morbid obesity, BMI is 56. 6. Polycythemia. 7. Elevated liver enzymes due to anasarca, improving. Follow up with hepatitis panel. 8. Right foot laceration third toe. History negative for any fractures. We will have [facility] come in and evaluate the wound. We will continue with topical Bactroban. The patient is on Keflex. White blood cell counts normal. Afebrile. 9. Hypertension, improved. 10. Lower extremity cyanosis secondary to severe edema. Atrial Dopplers negative for stenosis. 11. Noncompliance, intentional. 12. Deep venous thrombosis prophylaxis with Lovenox. ADDENDUM: Tele showing Aflutter. Rate as high as 200 when she got up. Restart BB, therapeutic lovenox. Discussed with Dr. Pinto. Refer to [facility] SA/MODL Voice ID: [id number] Report ID: [id number] MTDKathie
[2019-03-04] MEDS ORDERED: METOPROLOL TAR 25 MG TAB PO SCH (18:00)
--- NOTE | 2019-03-04 19:34 | RAD REPORT ---
EXAM DESCRIPTION: US - Extrem Venous W Compress [place] - 03/04/2019 7:08 pm CLINICAL HISTORY: rule out dvt Bilateral leg edema and swelling. COMPARISON: <Comparisons> TECHNIQUE: Real-time sonographic interrogation of the left and right lower extremity deep venous sys tems was performed. FINDINGS: Normal compressibility, flow augmentation, phasic flow and spontaneous flow is identified in both the left and right lower extremity deep venous systems. IMPRESSION: No sonographic evidence of left or right lower extremity deep venous thrombosis.
--- NOTE | 2019-03-04 20:23 | EKG ---
Test Date: 2019-03-04 Test Time: 14:36:18 Analytical Manager: MARCO MEASUREMENT RESULTS: Intervals: Rate: 131 ME: QRSD: 80 QT: 272 QTc: 401 [place]: P: 89 ME: QRS: 160 T: -13 INTERPRETIVE STATEMENTS: Atrial flutter with 2:1 AV conduction Possible Right ventricular hypertrophy Septal infarct, age undetermined Possible Lateral infarct, age undetermined Abnormal ECG Compared to ECG 03/02/2019 01:19:39 Accelerated junctional rhythm no longer present Myocardial infarct finding still present Electronically Signed On 03-04-19 20:22:44 CDT by Sergo Pinto
[2019-03-04] MEDS: ENOXAPARIN 100 MG/ML SYR SQ SCH (20:39)
[2019-03-04] MEDS: ENOXAPARIN 80 MG/0.8 ML SQ SCH (21:00)
[2019-03-05] MEDS: CEPHALEXIN 500 MG CAP PO SCH ×4 (00:39→17:14)
[2019-03-05] MEDS: acetaZOLAMIDE 250 MG TAB PO SCH ×2 (00:39→14:00)
[2019-03-05] MEDS: LEVALBUTEROL 1.25 MG/3 ML NEB NEB SCH ×4 (02:00→19:48)
[2019-03-05] MEDS: IPRATROPIUM BROM 0.5MG/2.5ML NEB SCH ×4 (02:00→19:48)
[2019-03-05] MEDS: AMILORIDE HCL 5 MG TABLET PO SCH ×4 (04:44→21:03)
[2019-03-05] MEDS: FUROSEMIDE 40 MG/4 ML VIAL IV SCH ×2 (05:33→17:13)
[2019-03-05] MEDS: SOTALOL HCL 80 MG TAB PO SCH ×2 (05:38→17:12)
[2019-03-05 05:57] LABS: Absolute Monocytes 0.9 K/uL (0.1-1.3); Absolute Neutrophil 6.3 K/uL (1.8-8.0); Basophils % 0.2 % (0-1.3); Eosinophils % 0.4 % (0-4.4); Hematocrit 47.1 % (36.0-45.0); Lymphocytes % 11.9 % (15.3-44.8); MPV 8.2 fL (7.6-11.3); Monocytes % 10.9 % (3.3-12.3); RBC Red Blood Cell Count 4.67 M/uL (3.86-4.86)
[2019-03-05 07:36] LABS: Albumin 3.3 g/dL (3.4-5.0); Bilirubin Total 3.5 mg/dL (0.2-1.0); Potassium 4.3 mmol/L (3.5-5.1); Protein, Total 7.2 g/dL (6.4-8.2)
[2019-03-05] MEDS: NYSTATIN PWDR 100000 UNIT/GM TOP SCH ×2 (09:00→21:00)
[2019-03-05] MEDS: ENOXAPARIN 100 MG/ML SYR SQ SCH ×2 (09:00→21:00)
[2019-03-05] MEDS: MIDODRINE HCL 5 MG TABLET PO SCH ×3 (09:00→21:02)
[2019-03-05] MEDS: ENOXAPARIN 80 MG/0.8 ML SQ SCH ×2 (09:00→21:00)
[2019-03-05] MEDS: CALCITROL 0.25 MCG CAP PO SCH (09:00)
[2019-03-05] MEDS: MUPIROCIN 2% OINT 22GM TUBE TOP SCH ×2 (09:00→21:03)
[2019-03-05] MEDS: VITAMIN D 5,000 UNIT CAP PO SCH (09:00)
--- NOTE | 2019-03-05 11:09 | RAD REPORT ---
EXAM DESCRIPTION: CT - Head Brain Wo Cont - 03/05/2019 10:58 am CLINICAL HISTORY: Change in LOC Headache, drowsiness COMPARISON: Head Brain Wo Cont dated 11/12/2017 TECHNIQUE: All CT scans are performed using dose optimization technique as appropriate and may inclu de automated exposure control or mA/KV adjustment according to patient size. FINDINGS: No intracranial hemorrhage, hydrocephalus or extra-axial fluid collection.Moderate brain a trophy is present, greatest in the frontal lobes.No areas of brain edema or evidence of midline shift . Multiple air-fluid levels are seen in the paranasal sinuses. The calvarium is intact. IMPRESSION: No acute intracranial abnormality. Multiple air fluid levels in the paranasal sinuses can be seen acute sinusitis.
[2019-03-05] MEDS: COLLAGENASE 30 GM OINTMENT TOP SCH (13:58)
--- NOTE | 2019-03-05 14:45 | P.PN ---
Subjective Date of Service: 03/05/19 Chief Complaint: Generalized edema RESPIRATORY FAILURE Patient seen and examined at bedside. No family at bedside. Chart reviewed and case discussed with nursing staff. When seen at bedside during rounds, patient was not responsive. Opens eyes to verbal cues but no response. Confused, not oriented to self, time or place. Stat CT ordered. Re-evaluate patient afterwards, patient refusing CT/MRI. Discussed with patient. At this time, she was alert oriented x3. In mild to moderate distress seems like she was secondary to anxiety. Discussed with mother via telephone, per patient request. Review of Systems 10-point ROS is otherwise unremarkable Physical Examination - Vital Signs Temperature: 97.9 F Blood Pressure: 103/73 Pulse: 124 Respirations: 20 Pulse Ox (%): 94 - Physical Exam General: Other (Transient alteration in mentation/confusion) Neck: Supple, JVD not distended Respiratory: Clear to auscultation bilaterally, Normal air movement Cardiovascular: Regular rate/rhythm, Normal S1 S2, Edema (Generalized anasarca) Musculoskeletal: Swelling Neurological: Other (As per HPI) Assessment And Plan - Current Problems (Diagnosis) (1) Acute renal injury Onset Date: 11/15/17 Current Visit: No Status: Acute (2) Anasarca Current Visit: No Status: Acute (3) Morbidly obese Current Visit: No Status: Chronic (4) Tachycardia Current Visit: Yes Status: Acute (5) Acute alteration in mental status Current Visit: Yes Status: Acute (6) Atrial flutter Current Visit: Yes Status: Acute Qualifiers: Atrial flutter type: unspecified Qualified Code(s): I48.92 - Unspecified atrial flutter (7) Toe laceration Current Visit: Yes Status: Acute Qualifiers: Encounter type: initial encounter (8) Noncompliance Current Visit: Yes Status: Acute (9) Chronic kidney disease Current Visit: Yes Status: Chronic Qualifiers: Chronic kidney disease stage: stage 3 (moderate) Qualified Code(s): N18.3 - Chronic kidney disease, stage 3 (moderate) (10) Chronic diastolic heart failure Current Visit: Yes Status: Chronic - Plan Altered mentation, confusion. Transient Differential diagnoses include: Seizure, TIA/stroke. When seen at bedside during rounds, patient was not responsive. Opens eyes to verbal cues but no response. Confused, not oriented to self, time or place. Vital signs were stable except for Atrial flutter, HR of 126. Stat CT and MRI ordered. Patient refused when they wanted to take her downstairs. At that time, saw patient again. Discussed with patient the importance of the imaging. At this time, patient was AAOx3, ill - appearing, in no respiratory distress. Patient agreed. CT scan done but unable to do MRI as patient not able to tolerated being in closed areas and unable to lie flat. Patient on revaluation, alert oriented x3. She remains Hemodynamically stable Will order an EEG if patient continuously has sees transient alteration in mentation. May need neurology evaluation down the line. Diffuse Anasarca Acute on chronic diastolic heart failure Continue Aggressive diuresis with IV Lasix Supportive care with oxygen as needed Daily weights - decreasing weight. Has lost 18 lb the past 9 days. Strict in and output, continues to have negative fluid balance. Acute on chronic renal injury Creatinine continues to be elevated, likely secondary to volume overload. Continue IV diuresis. Will continue to monitor with a.m. labs Atrial flutter Patient tachycardic up to 180's. Unsure if this is secondary to her cardiac disease versus anxiety. Denies any chest pain at this time, but endorses feeling anxious. Continue Beta-sonny, therapeutic Lovenox. Continue Betapace Patient was supposed to go for cardioversion today but due to altered in mental status, procedure helps. Will continue Betapace for now and see if she needs cardioversion down the line. Elevated liver enzymes Likely secondary to anasarca Will follow up on her hepatitis panel Right foot laceration, 3rd toe Continue wound care. Continue Keflex at this time. She has been afebrile over time. General surgery consulted. She was supposed to go for I and D today which has been postponed secondary to her altered mentation. Possible surgical intervention with I and D once mentation improved and stable. Lower extremity cyanosis secondary to severe edema. Atrial Dopplers negative for stenosis Venous ultrasound negative for DVT bilaterally Anxiety Morbidly obese, BMI of 65 She will need education regarding lifestyle modifications and medication compliance. Polycythemia History of noncompliance, intentional DVT prophylaxis: Lovenox GI prophylaxis: None Diet: Fluid restriction Disposition: Pending symptomatic improvement
--- NOTE | 2019-03-05 16:34 | CON ---
Date of Consultation: 03/04/2019 Reason For Consultation: Bilateral lower extremity blister and wound. History Of Present Illness: The patient is a 53-year-old female, who was admitted on the was ge neralized edema following an episode of sepsis about a month prior and she has been retaining fluid. She came in with tachycardia, tachypnea. She had A-flutter, was supposed to undergo cardiac immersi on today; however, she had a change in her mental status and that was cancelled and she went down and got her CT of the head which was unremarkable. I was consulted yesterday because on evaluation, the patient had some blisters developing on both foot and a wound on the right second toe. No fever or chills associated with it. No purulent discharge. The patient at this time is unable to give an alee quate review of systems. Medical history significant for morbid obesity, lower extremity cellulitis. Allergies: INCLUDE LEVAQUIN. Social History: The patient does not smoke or drink alcohol. Family History: Noncontributory. Physical Examination: Vital signs: Stable, except heart rate is elevated at 127 to 130, A-flutter. She is afebrile. General: She is awake, confused, unable to give an adequate response. Head and Neck: No masses. Chest: Clear. Heart: S1 and S2. Abdomen: Sof. Extremity: Marked edema. Both dorsum of the foot have early blister developing with fluid in it. T he right second toe has necrotic fibrin present. Minimal erythema surrounding it. No purulent disch arge. Laboratory Data: She had a foot x-ray which shows no fracture, no evidence of osteo. She had a veno us study done which did not show any clots. She had a Doppler, which showed adequate flow to the andrea salis pedis and posterior tibial. Her white count is 8.2, platelets are 120, INR is 1.52. Chemistry reviewed. AST and ALT are slightly elevated. Assessment: A 53-year-old female with multiple medical problems, with a wound on the right second to e and blister on both lower extremities. Recommendation: The patient is medically stable at this time as she is still being worked up for an A-flutter as well as possible stroke. My recommendation would be to medically stabilize this patient . We will go ahead and order collagenase for the wound. [facility]. If she is medically stable, we can debride the wound while she is here. Primary care discussed with Dr. Tidwell. KUMAR/CHENG Voice ID: [id number] Report ID: [id number]
[2019-03-05 20:27] LABS: HBsAG Nonreactive (Nonreactive)
--- NOTE | 2019-03-05 21:16 | P.PN ---
Date of Service: 03/05/19 Vital Signs Temp Pulse Resp BP Pulse Ox 97.8 F 123 H 20 102/77 97 03/05/19 20:00 03/05/19 20:00 03/05/19 20:00 03/05/19 20:00 03/05/19 20:00 Medications Acetazolamide (Diamox) 500 mg PO Q12H [facility] Stop: 04/03/19 12:01 Last Admin: 03/05/19 14:00 Dose: 500 mg Amiloride HCl (Midamor) 10 mg PO Q6H [facility] Stop: 04/03/19 10:01 Last Admin: 03/05/19 21:03 Dose: 10 mg Benzonatate (Tessalon Perle) 100 mg PO TID PRN PRN Reason: COUGH Stop: 03/27/19 09:23 Last Admin: 03/03/19 20:55 Dose: 100 mg Calcitriol (Rocaltrol) 0.5 mcg PO DAILY [facility] Stop: 04/01/19 09:01 Last Admin: 03/05/19 09:00 Dose: Not Given Cephalexin HCl (Keflex) 500 mg PO Q6HR [facility]; Protocol Stop: 04/02/19 12:01 Last Admin: 03/05/19 17:14 Dose: 500 mg Cholecalciferol (Vitamin D 5,000 Iu Cap) 5,000 unit PO DAILY [facility] Stop: 04/01/19 09:01 Last Admin: 03/05/19 09:00 Dose: Not Given Collagenase (Santyl Ointment) 1 appl TOP DAILY [facility] Stop: 04/04/19 12:01 Last Admin: 03/05/19 13:58 Dose: 1 appl Enoxaparin Sodium (Lovenox 100 Mg Inj) 100 mg 1 mg/kg (170 mg) SQ Q12HR [facility] Stop: 04/03/19 21:01 Last Admin: 03/05/19 21:00 Dose: Not Given Enoxaparin Sodium (Lovenox 80 Mg Inj) 70 mg SQ Q12HR [facility] Stop: 04/03/19 21:01 Last Admin: 03/05/19 21:00 Dose: Not Given Furosemide (Lasix) 40 mg IV Q12H [facility] Stop: 04/03/19 18:01 Last Admin: 03/05/19 17:13 Dose: 40 mg Guaifenesin (Robitussin 100mg/5ml) 100 mg PO QID PRN PRN Reason: COUGH Stop: 03/28/19 20:32 Last Admin: 03/03/19 23:28 Dose: 100 mg Ipratropium [place] (Atrovent Neb) 0.5 mg NEB [id number] [facility] Stop: 03/26/19 20:01 Last Admin: 03/05/19 19:48 Dose: 0.5 mg Levalbuterol HCl (Xopenex) 1.25 mg NEB [id number] [facility] Stop: 04/02/19 14:01 Last Admin: 03/05/19 19:48 Dose: 1.25 mg Midodrine (Proamatine) 10 mg PO TID [facility] Stop: 03/31/19 10:01 Last Admin: 03/05/19 21:02 Dose: 10 mg Mupirocin (Bactroban 2% Ointment) 1 appl TOP BID [facility] Stop: 04/02/19 12:01 Last Admin: 03/05/19 21:03 Dose: 1 appl Nystatin (Mycostatin (Powder)) 1 appl TOP BID [facility] Stop: 03/30/19 09:07 Last Admin: 03/05/19 21:00 Dose: Not Given Ondansetron HCl (Zofran) 4 mg IV Q6HP PRN PRN Reason: NAUSEA / VOMITING Stop: 03/26/19 19:38 Phenol (Phenaseptic [place]) 2 appl MM Q4H PRN PRN Reason: SORE THROAT Stop: 03/27/19 09:23 Last Admin: 03/02/19 20:48 Dose: 2 appl Sodium Chloride (Normal Saline Flush) 10 ml IV BID [facility] Stop: 03/26/19 21:01 Last Admin: 03/05/19 21:04 Dose: 10 ml Sotalol HCl (Betapace) 80 mg PO BID 6AM 6PM [facility] Stop: 04/04/19 06:01 Last Admin: 03/05/19 17:12 Dose: 80 mg Assessment/ Plan: Nephrology. CPS stable without CP or SOB. +RG +urine ouput. Persistent edema. No acute events overnight. Somnolent this morning. Vitals, medications, blood work and imaging reviewed in the chart. General: Cooperative HEENT: Mucous membr. moist/pink Neck: Supple, No LAD Respiratory: Poor effort. Cardiovascular: Tachycardic, No rubs, Edema Gastrointestinal: Soft and benign, Non-distended, No guarding Musculoskeletal: No clubbing, No contractures Integumentary: No rashes, Skin breakdown, Skin lesion, Cyanosis Blood work reviewed in the chart. Initial serum creatinine 1.31 Imagings Data: 2 DIMENSIONAL ASSESSMENT: RIGHT ATRIUM: NORMAL LEFT ATRIUM: DILATED RIGHT VENTRICLE: NORMAL LEFT VENTRICLE: NORMAL TRICUSPID VALVE: NORMAL MITRAL VALVE: NORMAL PULMONIC VALVE: NORMAL AORTIC VALVE: SCLEROSIS PERICARDIAL EFFUSION: NONE AORTIC ROOT: NORMAL LEFT VENTRICULAR WALL MOTION: LOWER LIMIT OF NORMAL CONTRACTILITY. DOPPLER/COLOR FLOW: TECHNICALLY DIFFICULT STUDY. COMMENTS: TECHNICALLY DIFFICULT STUDY. NORMAL LEFT VENTRICULAR EJECTION FRACTION. DILATED LEFT ATRIUM. AORTIC SCLEROSIS WITH NO AORTIC STENOSIS. EXAM DESCRIPTION: US - Renal Ultrasound-Complete - 02/27/2019 5:35 pm CLINICAL HISTORY: Acute renal insufficiency FINDINGS: The examination is limited secondary to body habitus The right kidney measures 11 cm with an increased echotexture. The left kidney measures 11 cm with an increased echotexture. Hydronephrosis is not seen. A bladder poorly evaluated as it is decompressed IMPRESSION: Increased renal echotexture consistent with parenchymal disease. EXAM DESCRIPTION: RAD - Chest Pa And Lat (2 Views) - 02/25/2019 6:54 am CLINICAL HISTORY: volume overload Chest pain. COMPARISON: Chest Single View dated 02/24/2019; Chest Single View dated 11/14/2017 ; Chest Single View dated 11/12/2017; Chest Single View dated 11/12/2017 FINDINGS: Mild interstitial prominence is again noted, appearing mildly improved since the comparative study. The heart is moderately enlarged in size. No displaced fractures. IMPRESSION: Mild improvement lung aeration since comparative study. Conclusions/Impression: A/ BRANDON likely CRS. CKD III. Acute hepatitis of unclear etiology. Hepatic congestion? Hypoalbuminemia. Chronic respiratory failure with hypoxia and hypercarbia. Hypoventilation syndrome. MASON? Secondary Polycythemia. Diastolic CHF, A/C. Anasarca. Hypervolemia. Hypotension of unclear etiology. Distal LE Cyanosis. Right toe ulcer. Morbid Obesity. P/ Continue current POC and Medications. Continue aggressive diuresis as tolerated in the setting of hypotension. Intermittent Mannitol as tolerated. Continue Lasix, Diamox and Amiloride; will titrate as tolerated. Replete potassium as ordered. Midrodrine for hypotension. May benefit from Bipap therapy. No NSAIDs. AM labs. Daily weight.
[2019-03-05] MEDS ORDERED: MANNITOL 25% 12.5 GM/50 ML VIAL IV ONE (21:30)
[2019-03-05] MEDS ORDERED: MANNITOL 25% 50 ML IV ONE (23:13)
[2019-03-06 00:21] LABS: Arterial Blood Carboxyhemoglob 1.3 % (0-1.5); Blood Gas Oxyhemoglobin 94.9 % (94-97); Blood O2 Saturation 96.5 % (92-98.5)
[2019-03-06] MEDS: acetaZOLAMIDE 250 MG TAB PO SCH ×2 (01:07→13:22)
[2019-03-06] MEDS: CEPHALEXIN 500 MG CAP PO SCH ×4 (01:07→18:00)
[2019-03-06] MEDS: LEVALBUTEROL 1.25 MG/3 ML NEB NEB SCH ×4 (01:25→20:10)
[2019-03-06] MEDS: IPRATROPIUM BROM 0.5MG/2.5ML NEB SCH ×4 (01:25→20:10)
[2019-03-06] MEDS ORDERED: FUROSEMIDE 20 MG/ 2ML VIAL IV ONE (02:34)
[2019-03-06] MEDS ORDERED: ALBUMIN HUMAN 25% 100 ML IV ONE (02:34)
[2019-03-06] MEDS: AMILORIDE HCL 5 MG TABLET PO SCH ×4 (04:29→22:00)
[2019-03-06] MEDS: FUROSEMIDE 40 MG/4 ML VIAL IV SCH (06:00)
[2019-03-06] MEDS: SOTALOL HCL 80 MG TAB PO SCH ×2 (06:39→18:00)
--- NOTE | 2019-03-06 08:00 | RAD REPORT ---
EXAM DESCRIPTION: [facility] Single View03/06/2019 1:00 am CLINICAL HISTORY: Shortness of breath COMPARISON: March 02 FINDINGS: A few areas of subsegmental atelectasis are present within the right lung base. Remainder of the lungs appear clear of acute infiltrate. PICC line remains in place. The heart is moderately enlarged
[2019-03-06] MEDS: MUPIROCIN 2% OINT 22GM TUBE TOP SCH ×2 (08:54→21:00)
[2019-03-06] MEDS: COLLAGENASE 30 GM OINTMENT TOP SCH (08:55)
[2019-03-06] MEDS: ENOXAPARIN 80 MG/0.8 ML SQ SCH (09:00)
[2019-03-06] MEDS: ENOXAPARIN 100 MG/ML SYR SQ SCH (09:00)
--- NOTE | 2019-03-06 09:02 | P.PN ---
Date of Service: 03/06/19 Called to evaluate the patient because her O2 requirements have gone up. Reviewed patient's medical records and chart. Most of her medical issues are related to her morbid obesity with BMI greater than 60. she has developed significant obesity hypoventilation syndrome with resultant hypercapnia and she has diffuse anasarca as well as fatty liver disease. Her fatty liver disease has actually resulted in a significant elevation in her bilirubin as well as her protime. Her albumin is also on the lower side. She has had decreased sensorium over the last couple of days according to the night nurse. Per report that she received patient had a hard time waking up yesterday morning. This could be related to her hypercapnia with a PCO2 of 55although her pH is 7.33 so she seems like she is compensated somewhat. Her other electrolytes did not seem to be significantly abnormal. I am concerned that her ammonia level may be significantly elevated. She also has a macrocytic anemia. Will check her B12 and folate level. MRI of the brain her ordered however with her weight I'm not sure if she will be able fit on the machine. She also has a cardiac catheterization scheduled. Probably will need to check a coagulopathy profile prior to this. Her PT was significantly elevated with an INR greater than 1.5. We will check a multitude of lab work and hopefully we can get some answers. Her O2 requirements have also increased and I will consult Pulmonary. I tried and diurese her a little bit more extensively tonight and she has a [place] catheter. But this could also be related to hypoventilation and her refusal to wear the BiPAP. Hopefully, the lab testing will reveal her etiology of her decreased mentation.
[2019-03-06 09:19] LABS: Absolute Lymphocytes (CBC) 1.3 K/uL (0.7-4.9); Absolute Monocytes 0.8 K/uL (0.1-1.3); Absolute Neutrophil 5.6 K/uL (1.8-8.0); Basophils % 0.5 % (0-1.3); Eosinophils % 0.5 % (0-4.4); Hematocrit 51.4 % (36.0-45.0); Lymphocytes % 16.9 % (15.3-44.8); MPV 8.7 fL (7.6-11.3); Monocytes % 10.5 % (3.3-12.3); RBC Red Blood Cell Count 5.05 M/uL (3.86-4.86)
[2019-03-06 09:28] LABS: Protime INR 1.84
[2019-03-06] MEDS: NYSTATIN PWDR 100000 UNIT/GM TOP SCH ×2 (09:52→21:00)
[2019-03-06] MEDS: CALCITROL 0.25 MCG CAP PO SCH (09:53)
[2019-03-06] MEDS: VITAMIN D 5,000 UNIT CAP PO SCH (09:53)
[2019-03-06] MEDS: MIDODRINE HCL 5 MG TABLET PO SCH ×3 (09:54→21:00)
[2019-03-06 10:11] LABS: Albumin 3.5 g/dL (3.4-5.0); Bilirubin Total 4.5 mg/dL (0.2-1.0); Folic Acid, (Folate) 11.1 ng/mL (3.1-17.5); Magnesium 2.1 mg/dL (1.8-2.4); Potassium 4.6 mmol/L (3.5-5.1); Protein, Total 7.3 g/dL (6.4-8.2)
[2019-03-06] MEDS: VANCOMYCIN 2 GM in NA CHLORIDE 0.9% 500 ML IVPB SCH (10:33)
[2019-03-06] MEDS: FUROSEMIDE 100 MG in NA CHLORIDE 0.9% 90 ML IV SCH (14:56)
[2019-03-06] MEDS ORDERED: LACTULOSE 20 GM/30 ML UCUP PO SCH (15:00)
--- NOTE | 2019-03-06 15:44 | PN ---
Date of Progress Note: 03/06/2019 Subjective: The patient is awake, alert, more so than yesterday. Vital signs stable, afebrile. Physical Examination: No significant change. Assessment: Bilateral lower extremity wounds. Recommendation: The patient is scheduled for cardioversion tomorrow following which we will debride her wound in the OR. The patient understands the risks, benefits, and alternatives and agrees to pro cedure. /MODL Voice ID: [id number] Report ID: [id number]
[2019-03-06] MEDS ORDERED: FUROSEMIDE 40 MG/4 ML VIAL IV SCH (17:00)
[2019-03-06 17:54] LABS: Arterial Blood Carboxyhemoglob 1.1 % (0-1.5); Blood Gas Oxyhemoglobin 96.4 % (94-97); Blood O2 Saturation 97.9 % (92-98.5)
--- NOTE | 2019-03-06 18:35 | PN ---
Date of Progress Note: 03/06/2019 Interval History: The patient has been very somnolent and has been refusing BiPAP. She is planned f or cardioversion and then planned for right toe incision and drainage post cardioversion. She is wilman ble to give much history. Initially, she said she was doing okay. However, after that, she has beco me very somnolent and is refusing the physical exam. Physical Examination: Vital Signs: Showing temperature of 98, pulse rate of 108, respiratory rate of 22, and blood pressur e is 113/72. General Examination: She is an obese female, seems very somnolent, and also confused. HEENT: Shows atraumatic head. Lungs: Auscultation of the lungs was unable to be done. Abdomen: Obese and nontender. Extremities: Massive anasarca was noted. Laboratory Data: At this time, showing sodium of 140, potassium of 4.6, chloride of 101, BUN of 24, and creatinine of 1.34 which is worsening from 1.1 yesterday. LFTs are also worsening with AST of 11 5 and ALT of 134, alkaline phosphatase is within normal limits. Cortisol level was normal. CBC show ing hemoglobin of 17,000, hematocrit of 51, and platelet count of 145. Current Medications: Have been reviewed. She remains on vancomycin p.o., sotalol, midodrine 10 mg 3 times a day, Lasix 40 mg every 12 hours, acetazolamide 500 mg every 12 hours, and amiloride 10 mg ev yasmine 6 hours. Impression: 1.Miauo-rt-lfbyvdz renal insufficiency secondary to underlying cardiorenal syndrome. The patient wi th worsening renal function today. However, it is hard to determine if this could be over-diuresis o r this could be related to worsening congestive heart failure. At this point, since her bicarb level s are improving, I will go ahead and discontinue acetazolamide and increase the Lasix to every 8 hour s and monitor her closely. We will also continue the amiloride for right now. 2.Acute diastolic heart failure exacerbation with volume overload. 3.Altered mental status, possibly secondary to combination of metabolic and toxic encephalopathy sec ondary to metabolic abnormalities as well as concern for possible infection. The patient's ammonia l evels are also elevated and she is being given lactulose as well. 4.Elevated LFTs, likely secondary to hepatic congestion versus infection related. 5.Distal lower extremity cyanosis with right toe ulcer. Plan for incision and drainage tomorrow. 6.Hypotension, remains on midodrine. 7.Obesity hypoventilation syndrome with possible hypercapnia. 8.Atrial fibrillation, rate uncontrolled. The patient is planned for cardioversion tomorrow. Plan: Overall, the patient's condition seems to be deteriorating. She seems to be having worsening hemoconcentration, worsening renal function, and worsening LFTs along with her mental status. Will n eed to be closely monitored in the ICU. She is refusing BiPAP. She might end up getting intubated i f she continues to be altered with increasing respiratory status at this time. Hence we will go ahead and increase the Lasix and stop the acetazolamide and follow up on labs closely. Her antibiotic cov erage is being broadened as well to cover for any superficial infection like cellulitis. Avoid furth er hypotension and nephrotoxins and follow up on labs closely. The plan was discussed with Dr. Tidwell , who was also at bedside examining the patient with me. However, the patient is refusing care at th is point. VV/MODL Voice ID: [id number] Report ID: [id number]
[2019-03-06] MEDS: Rifaximin 550 MG Tab PO SCH (21:00)
--- NOTE | 2019-03-06 22:02 | P.PN ---
Subjective Date of Service: 03/06/19 Chief Complaint: Generalized edema RESPIRATORY FAILURE Patient seen and examined at bedside. No family at bedside. Chart reviewed and case discussed with nursing staff. When seen at bedside during rounds, patient was not responsive. Opens eyes to verbal cues but no response. Confused, not oriented to self, time or place. Stat CT ordered. Re-evaluate patient afterwards, patient refusing CT/MRI. Discussed with patient. At this time, she was alert oriented x3. In mild to moderate distress seems like she was secondary to anxiety. Discussed with mother via telephone, per patient request. Physical Examination - Vital Signs Temperature: 97.9 F Blood Pressure: 107/87 Pulse: 124 Respirations: 22 Pulse Ox (%): 97 Assessment And Plan - Current Problems (Diagnosis) (1) Acute renal injury Onset Date: 11/15/17 Current Visit: No Status: Acute (2) Anasarca Current Visit: No Status: Acute (3) Morbidly obese Current Visit: No Status: Chronic (4) Tachycardia Current Visit: Yes Status: Acute (5) Acute alteration in mental status Current Visit: Yes Status: Acute (6) Atrial flutter Current Visit: Yes Status: Acute Qualifiers: Atrial flutter type: unspecified Qualified Code(s): I48.92 - Unspecified atrial flutter (7) Toe laceration Current Visit: Yes Status: Acute Qualifiers: Encounter type: initial encounter (8) Noncompliance Current Visit: Yes Status: Acute (9) Chronic kidney disease Current Visit: Yes Status: Chronic Qualifiers: Chronic kidney disease stage: stage 3 (moderate) Qualified Code(s): N18.3 - Chronic kidney disease, stage 3 (moderate) (10) Chronic diastolic heart failure Current Visit: Yes Status: Chronic - Plan Altered mentation, confusion. Transient Hypoventilation, refusing bi-pap Toxic Hepatic encephalopathy Differential diagnoses include: Seizure, TIA/stroke, hypoventalation/ hypercapnia CT negative for acute abnormalities; MRI unable to be done due to body habitus and pt unable to lie flat. Patient continues to be confused, transferred to ICU. Patient currently cooperative with Bi-pap. Start lactulose. We can do [place] if patient not able to tolerate PO. Diffuse Anasarca Acute on chronic diastolic heart failure Continue Aggressive diuresis with IV Lasix, started on Lasix drip by nephrology. Supportive care with oxygen as needed Strict in and output, continues to have negative fluid balance. Acute on chronic renal injury Creatinine continues to be elevated, likely secondary to volume overload. Continue IV diuresis. nephrology on board, recommendations appreciated. Will continue to monitor with a.m. labs Atrial flutter Patient tachycardic up to 180's. Continue Beta-sonny, therapeutic Lovenox. Continue Betapace Patient was supposed to go for cardioversion today but due to altered in mental status, procedure helps. Will continue Betapace for now and pending cardioversion tomorrow. Elevated liver enzymes Likely secondary to anasarca, hepatic congestion. Will follow up on her hepatitis panel Right foot laceration, 3rd toe Wound cultures positive for MRSA Continue wound care. Continue vancomycin. General surgery consulted. She was supposed to go for I and D today which has been postponed secondary to her altered mentation. Possible surgical intervention as outpatient with I and D once mentation improved and stable. Lower extremity cyanosis secondary to severe edema. Atrial Dopplers negative for stenosis Venous ultrasound negative for DVT bilaterally Anxiety Morbidly obese, BMI of 65 She will need education regarding lifestyle modifications and medication compliance. Polycythemia History of noncompliance, intentional DVT prophylaxis: Lovenox GI prophylaxis: None Diet: Fluid restriction Disposition: Pending symptomatic improvement
[2019-03-06] MEDS: LACTULOSE 20 GM/30 ML UCUP PR SCH (22:30)
--- NOTE | 2019-03-07 00:05 | PN ---
Date of Progress Note: 03/05/2019 Ms. Ghotra was admitted with what sounds like acute exacerbation of chronic diastolic congestive hear t failure. She was being treated for hypotension with Mannitol as well as midodrine, was refusing he r Carolyn, wanted to be DNR, however, she was in atrial flutter at a rate of 120. She is on Betapace 8 0 b.i.d. and Lovenox. The plan was to do a cardioversion today, however, the patient refused to sign the consent. She was unresponsive. CT scan of the head was negative. The patient would not yaquelin ate for an MRI. Neurological and psychiatric evaluation are pending. If she remains in atrial flutt er and she is able to sign a content, we will do the cardioversion later. Continue Betapace for now. LAVERNE/CHENG Voice ID: [id number] Report ID: [id number]
[2019-03-07] MEDS: LEVALBUTEROL 1.25 MG/3 ML NEB NEB SCH ×4 (02:00→21:10)
[2019-03-07] MEDS: IPRATROPIUM BROM 0.5MG/2.5ML NEB SCH ×4 (02:00→21:10)
[2019-03-07] MEDS: AMILORIDE HCL 5 MG TABLET PO SCH ×4 (04:00→21:08)
[2019-03-07 05:57] LABS: Phosphorus 3.9 mg/dL (2.5-4.9); Potassium 4.1 mmol/L (3.5-5.1); Thyroid Stimulating Hormone 1.09 uIU/mL (0.360-3.740)
[2019-03-07 06:00] LABS: Absolute Lymphocytes (CBC) 1.5 K/uL (0.7-4.9); Absolute Neutrophil 6.8 K/uL (1.8-8.0); Basophils % 0.5 % (0-1.3); Eosinophils % 0.8 % (0-4.4); Hematocrit 49.6 % (36.0-45.0); Lymphocytes % 15.6 % (15.3-44.8); MPV 9.1 fL (7.6-11.3); Monocytes % 10.8 % (3.3-12.3); RBC Red Blood Cell Count 4.87 M/uL (3.86-4.86)
[2019-03-07] MEDS: CEPHALEXIN 500 MG CAP PO SCH ×4 (06:00→17:41)
[2019-03-07] MEDS: SOTALOL HCL 80 MG TAB PO SCH (06:00)
[2019-03-07] MEDS ORDERED: FLUMAZENIL 0.1 MG/ML (5 mL VIAL) IV ONE (07:47)
[2019-03-07] MEDS ORDERED: ATROPINE SULF 1 MG/10 ML SYR IV ONE (07:48)
[2019-03-07] MEDS ORDERED: MIDAZOLAM HCL 5 MG/5 ML INJ ONE (07:48)
[2019-03-07] MEDS ORDERED: HEPARIN 5000 UNIT/ML 1 ML VIAL ONE (07:50)
[2019-03-07] MEDS ORDERED: NA CHLORIDE 0.9% 500 ML ONE (08:04)
--- NOTE | 2019-03-07 08:37 | EKG ---
Test Date: 2019-03-07 Test Time: 08:09:00 Shactor Helper: ERICK MEASUREMENT RESULTS: Intervals: Rate: 70 NJ: 194 QRSD: 84 QT: 434 QTc: 468 [place]: P: 57 NJ: 194 QRS: 143 T: 75 INTERPRETIVE STATEMENTS: Normal sinus rhythm Right axis deviation Right ventricular hypertrophy Abnormal ECG Compared to ECG 03/04/2019 14:36:18 Right-axis deviation now present Atrial flutter no longer present Myocardial infarct finding no longer present Electronically Signed On 03-07-19 08:36:22 CDT by Reggie Pedraza
[2019-03-07] MEDS: VITAMIN D 5,000 UNIT CAP PO SCH (08:40)
[2019-03-07] MEDS: CALCITROL 0.25 MCG CAP PO SCH (08:40)
[2019-03-07] MEDS: MIDODRINE HCL 5 MG TABLET PO SCH ×3 (08:40→21:06)
[2019-03-07] MEDS: Rifaximin 550 MG Tab PO SCH ×2 (08:40→21:07)
[2019-03-07] MEDS: COLLAGENASE 30 GM OINTMENT TOP SCH (09:00)
[2019-03-07] MEDS: LACTULOSE 20 GM/30 ML UCUP PR SCH (09:00)
[2019-03-07] MEDS: MUPIROCIN 2% OINT 22GM TUBE TOP SCH ×2 (09:00→20:56)
[2019-03-07] MEDS: NYSTATIN PWDR 100000 UNIT/GM TOP SCH ×2 (09:00→21:00)
[2019-03-07] MEDS: FUROSEMIDE 100 MG in NA CHLORIDE 0.9% 90 ML IV SCH (09:33)
[2019-03-07] MEDS: VANCOMYCIN 2 GM in NA CHLORIDE 0.9% 500 ML IVPB SCH (09:57)
--- NOTE | 2019-03-07 14:18 | P.PN ---
Subjective Date of Service: 03/07/19 Chief Complaint: Generalized edema RESPIRATORY FAILURE Patient seen and examined at bedside. No family at bedside. Chart reviewed and case discussed with nursing staff. Patient continues to be drowsy, but now following commands more appropriately Kept bi-pap on all night. Review of Systems 10-point ROS is otherwise unremarkable Physical Examination - Vital Signs Temperature: 97.9 F Blood Pressure: 107/87 Pulse: 124 Respirations: 22 Pulse Ox (%): 97 - Physical Exam General: Obese, Other (drowsy but arousable) Respiratory: Diminished Cardiovascular: Normal S1 S2, Edema Assessment And Plan - Current Problems (Diagnosis) (1) Acute renal injury Onset Date: 11/15/17 Current Visit: No Status: Acute (2) Anasarca Current Visit: No Status: Acute (3) Morbidly obese Current Visit: No Status: Chronic (4) Tachycardia Current Visit: Yes Status: Acute (5) Acute alteration in mental status Current Visit: Yes Status: Acute (6) Atrial flutter Current Visit: Yes Status: Acute Qualifiers: Atrial flutter type: unspecified Qualified Code(s): I48.92 - Unspecified atrial flutter (7) Toe laceration Current Visit: Yes Status: Acute Qualifiers: Encounter type: initial encounter (8) Noncompliance Current Visit: Yes Status: Acute (9) Chronic kidney disease Current Visit: Yes Status: Chronic Qualifiers: Chronic kidney disease stage: stage 3 (moderate) Qualified Code(s): N18.3 - Chronic kidney disease, stage 3 (moderate) (10) Chronic diastolic heart failure Current Visit: Yes Status: Chronic - Plan Altered mentation, confusion. Transient Hypoventilation, refusing bi-pap Toxic Hepatic encephalopathy Differential diagnoses include: Seizure, TIA/stroke, hypoventalation/ hypercapnia, infection CT negative for acute abnormalities; MRI unable to be done due to body habitus and pt unable to lie flat. Patient continues to be confused, though improved slightly on bi-pap. Patient currently cooperative with Bi-pap. Continue lactulose. We can do [place] if patient not able to tolerate PO. Unable to have a discussion regarding goals of care as patient not able to stay awake. Will discuss further goals of care with mother via telephone regarding possible LTAC. . Diffuse Anasarca Acute on chronic diastolic heart failure Continue Aggressive diuresis with IV Lasix, continues to be on Lasix drip by nephrology. Supportive care with oxygen and bipap as needed Strict in and output, continues to have negative fluid balance. Acute on chronic renal injury Creatinine continues to be elevated, likely secondary to volume overload. Continue IV diuresis. nephrology on board, recommendations appreciated. Will continue to monitor with a.m. labs Atrial flutter In NSR s/p cardioversion done today (03/07/2019) Continue to monitor Elevated liver enzymes Likely secondary to anasarca, hepatic congestion. Will follow up on her hepatitis panel Right foot laceration, 3rd toe Wound cultures positive for MRSA Continue wound care. Continue vancomycin. General surgery consulted. She was supposed to go for I and D today which has been postponed secondary to her altered mentation. Possible surgical intervention as outpatient with I and D once mentation improved and stable. Lower extremity cyanosis secondary to severe edema. Atrial Dopplers negative for stenosis Venous ultrasound negative for DVT bilaterally Anxiety Morbidly obese, BMI of 65 She will need education regarding lifestyle modifications and medication compliance. Polycythemia History of noncompliance, intentional DVT prophylaxis: Lovenox GI prophylaxis: None Diet: Fluid restriction Disposition: Pending symptomatic improvement
[2019-03-07] MEDS ORDERED: FUROSEMIDE 100 MG in NA CHLORIDE 0.9% 90 ML IV SCH (14:44)
[2019-03-07] MEDS: MANNITOL 25% 12.5 GM/50 ML VIAL IV SCH ×2 (16:09→20:58)
--- NOTE | 2019-03-07 17:43 | P.PN ---
Date of Service: 03/07/19 Vital Signs Temp Pulse Resp BP Pulse Ox 97.9 F 84 22 H 98/75 97 03/07/19 14:19 03/07/19 17:00 03/07/19 17:00 03/07/19 17:00 03/07/19 14:19 Medications Amiloride HCl (Midamor) 10 mg PO Q6H [facility] Stop: 04/03/19 10:01 Last Admin: 03/07/19 15:47 Dose: Not Given Benzonatate (Tessalon Perle) 100 mg PO TID PRN PRN Reason: COUGH Stop: 03/27/19 09:23 Last Admin: 03/03/19 20:55 Dose: 100 mg Calcitriol (Rocaltrol) 0.5 mcg PO DAILY [facility] Stop: 04/01/19 09:01 Last Admin: 03/07/19 08:40 Dose: Not Given Cephalexin HCl (Keflex) 500 mg PO Q6HR [facility]; Protocol Stop: 04/02/19 12:01 Last Admin: 03/07/19 11:30 Dose: Not Given Cholecalciferol (Vitamin D 5,000 Iu Cap) 5,000 unit PO DAILY [facility] Stop: 04/01/19 09:01 Last Admin: 03/07/19 08:40 Dose: Not Given Collagenase (Santyl Ointment) 1 appl TOP DAILY [facility] Stop: 04/04/19 12:01 Last Admin: 03/07/19 09:00 Dose: 1 appl Enoxaparin Sodium (Lovenox 100 Mg Inj) 100 mg 1 mg/kg (170 mg) SQ Q12HR [facility] Stop: 04/03/19 21:01 Last Admin: 03/06/19 09:00 Dose: Not Given Enoxaparin Sodium (Lovenox 80 Mg Inj) 70 mg SQ Q12HR [facility] Stop: 04/03/19 21:01 Last Admin: 03/06/19 09:00 Dose: Not Given Furosemide (Lasix) 40 mg IV Q6H [facility] Stop: 04/07/19 00:02 Guaifenesin (Robitussin 100mg/5ml) 100 mg PO QID PRN PRN Reason: COUGH Stop: 03/28/19 20:32 Last Admin: 03/03/19 23:28 Dose: 100 mg Vancomycin HCl 2 gm/ Sodium (Chloride) 500 mls @ 250 mls/hr IVPB Q24H [facility]; Protocol Stop: 04/05/19 10:01 Last Admin: 03/07/19 09:57 Dose: 500 mls Ipratropium [place] (Atrovent Neb) 0.5 mg NEB [id number] [facility] Stop: 03/26/19 20:01 Last Admin: 03/07/19 14:30 Dose: 0.5 mg Lactulose (Cephulac) 30 gm PO BID [facility] Stop: 04/06/19 21:01 Levalbuterol HCl (Xopenex) 1.25 mg NEB [id number] [facility] Stop: 04/02/19 14:01 Last Admin: 03/07/19 14:30 Dose: 1.25 mg Mannitol (Mannitol 12.5 Gm/50 Ml Vial) 25 gm IV Q6H [facility] Stop: 03/07/19 21:01 Last Admin: 03/07/19 16:09 Dose: 25 gm Midodrine (Proamatine) 10 mg PO TID [facility] Stop: 03/31/19 10:01 Last Admin: 03/07/19 13:15 Dose: 10 mg Mupirocin (Bactroban 2% Ointment) 1 appl TOP BID [facility] Stop: 04/02/19 12:01 Last Admin: 03/07/19 09:00 Dose: 1 appl Nystatin (Mycostatin (Powder)) 1 appl TOP BID [facility] Stop: 03/30/19 09:07 Last Admin: 03/07/19 09:00 Dose: 1 appl Ondansetron HCl (Zofran) 4 mg IV Q6HP PRN PRN Reason: NAUSEA / VOMITING Stop: 03/26/19 19:38 Phenol (Phenaseptic [place]) 2 appl MM Q4H PRN PRN Reason: SORE THROAT Stop: 03/27/19 09:23 Last Admin: 03/02/19 20:48 Dose: 2 appl Rifaximin (Xifaxan) 550 mg PO BID [facility]; Protocol Stop: 04/05/19 21:01 Last Admin: 03/07/19 08:40 Dose: Not Given Sodium Chloride (Normal Saline Flush) 10 ml IV BID [facility] Stop: 03/26/19 21:01 Last Admin: 03/07/19 09:00 Dose: 10 ml Assessment/ Plan: Nephrology. CPS worse without CP. +SOB requiring bipap therapy. +urine ouput. Persistent diffuse edema. No acute events overnight. Somnolent today with some confusion. Vitals, medications, blood work and imaging reviewed in the chart. General: Cooperative HEENT: Mucous membr. moist/pink Neck: Supple, No LAD Respiratory: Diminished. Bipap therapy. Cardiovascular: Tachycardic, No rubs, Edema, Anasarca. Gastrointestinal: Soft and benign, Non-distended, No guarding Musculoskeletal: No clubbing, No contractures Integumentary: No rashes, Skin breakdown, Skin lesion, Cyanosis Greater than 30 min patient care. Blood work reviewed in the chart. Initial serum creatinine 1.31 Imagings Data: 2 DIMENSIONAL ASSESSMENT: RIGHT ATRIUM: NORMAL LEFT ATRIUM: DILATED RIGHT VENTRICLE: NORMAL LEFT VENTRICLE: NORMAL TRICUSPID VALVE: NORMAL MITRAL VALVE: NORMAL PULMONIC VALVE: NORMAL AORTIC VALVE: SCLEROSIS PERICARDIAL EFFUSION: NONE AORTIC ROOT: NORMAL LEFT VENTRICULAR WALL MOTION: LOWER LIMIT OF NORMAL CONTRACTILITY. DOPPLER/COLOR FLOW: TECHNICALLY DIFFICULT STUDY. COMMENTS: TECHNICALLY DIFFICULT STUDY. NORMAL LEFT VENTRICULAR EJECTION FRACTION. DILATED LEFT ATRIUM. AORTIC SCLEROSIS WITH NO AORTIC STENOSIS. EXAM DESCRIPTION: US - Renal Ultrasound-Complete - 02/27/2019 5:35 pm CLINICAL HISTORY: Acute renal insufficiency FINDINGS: The examination is limited secondary to body habitus The right kidney measures 11 cm with an increased echotexture. The left kidney measures 11 cm with an increased echotexture. Hydronephrosis is not seen. A bladder poorly evaluated as it is decompressed IMPRESSION: Increased renal echotexture consistent with parenchymal disease. EXAM DESCRIPTION: RAD - Chest Pa And Lat (2 Views) - 02/25/2019 6:54 am CLINICAL HISTORY: volume overload Chest pain. COMPARISON: Chest Single View dated 02/24/2019; Chest Single View dated 11/14/2017 ; Chest Single View dated 11/12/2017; Chest Single View dated 11/12/2017 FINDINGS: Mild interstitial prominence is again noted, appearing mildly improved since the comparative study. The heart is moderately enlarged in size. No displaced fractures. IMPRESSION: Mild improvement lung aeration since comparative study. Conclusions/Impression: A/ BRANDON likely CRS. CKD III. Acute hepatitis of unclear etiology. Hepatic congestion? Hypoalbuminemia. Chronic respiratory failure with hypoxia and hypercarbia. Hypoventilation syndrome. MASON? Secondary Polycythemia. Diastolic CHF, A/C. Anasarca. Hypervolemia. Hypotension of unclear etiology. Distal LE Cyanosis. Right toe ulcer. Metabolic Encephalopathy. Morbid Obesity. P/ Continue current POC and Medications. Continue aggressive diuresis as tolerated in the setting of hypotension. Intermittent Mannitol as tolerated. Continue Lasix and Amiloride; Will consider Diamox as needed. Replete potassium as ordered. Midrodrine for hypotension. Bipap therapy as ordered. No NSAIDs. AM labs. Daily weight.
--- NOTE | 2019-03-07 20:11 | OP ---
Date of Procedure: 03/07/2019 Surgeon: Reggie Pedraza MD [employer] Crawler Torch: Karyn Fletcher. Procedure: Direct current cardioversion. Indication: Atrial flutter. History Of Present Illness: Ms. Ghotra had been in the hospital for a few days with diastolic conges tive heart failure, pulmonary insufficiency, went into atrial flutter approximately 48 hours ago. Redd d been taking Lovenox and Betapace 80 mg b.i.d., which had failed to convert her to normal rhythm. T misbah, she was given 3 mg of Versed for IV sedation. She received 2 shocks of 100 joules and then 200 joules, which converted her to normal rhythm. The patient tolerated the procedure well. There were no complications. Total conscious sedation was 30 minutes. The patient was slightly hypotensive prior to the procedure . Received 250 cc of IV normal saline bolus. Versed was reversed after the procedure. The patient was awake and oriented x3. Final Diagnosis: Atrial flutter status post successful cardioversion. Plan: The patient will continue to be on Betapace. We will resume Lovenox. She will eventually hav e to be on an anticoagulant of some kind, preferably Eliquis as an outpatient. LAVERNE/CHENG Voice ID: [id number] Report ID: [id number]
[2019-03-07] MEDS: LACTULOSE 20 GM/30 ML UCUP PO SCH (20:57)
[2019-03-07] MEDS ORDERED: MANNITOL 25% 50 ML IV ONE (22:02)
[2019-03-08] MEDS: FUROSEMIDE 40 MG/4 ML VIAL IV SCH ×5 (01:11→23:52)
[2019-03-08] MEDS: CEPHALEXIN 500 MG CAP PO SCH ×5 (01:11→23:52)
[2019-03-08] MEDS: LEVALBUTEROL 1.25 MG/3 ML NEB NEB SCH ×4 (02:05→20:00)
[2019-03-08] MEDS: AMILORIDE HCL 5 MG TABLET PO SCH ×4 (05:51→21:02)
[2019-03-08 05:54] LABS: Absolute Lymphocytes (CBC) 1.2 K/uL (0.7-4.9); Absolute Neutrophil 8.1 K/uL (1.8-8.0); Basophils % 0.4 % (0-1.3); Eosinophils % 0.3 % (0-4.4); Hematocrit 50.3 % (36.0-45.0); Lymphocytes % 11.6 % (15.3-44.8); MPV 8.7 fL (7.6-11.3); Monocytes % 9.7 % (3.3-12.3); RBC Red Blood Cell Count 4.96 M/uL (3.86-4.86)
[2019-03-08 06:09] LABS: Albumin 3.2 g/dL (3.4-5.0); Bilirubin Total 3.4 mg/dL (0.2-1.0)
[2019-03-08] MEDS: MUPIROCIN 2% OINT 22GM TUBE TOP SCH ×2 (09:00→20:32)
[2019-03-08] MEDS: NYSTATIN PWDR 100000 UNIT/GM TOP SCH ×2 (09:00→21:00)
[2019-03-08] MEDS: COLLAGENASE 30 GM OINTMENT TOP SCH (09:00)
--- NOTE | 2019-03-08 09:16 | P.PN ---
Date of Service: 03/08/19 Vital Signs Temp Pulse Resp BP Pulse Ox 96.7 F L 75 11 L 124/93 H 96 03/08/19 04:00 03/08/19 09:00 03/08/19 06:00 03/08/19 09:00 03/08/19 08:00 Medications Amiloride HCl (Midamor) 10 mg PO Q6H [facility] Stop: 04/03/19 10:01 Last Admin: 03/08/19 05:51 Dose: 10 mg Benzonatate (Tessalon Perle) 100 mg PO TID PRN PRN Reason: COUGH Stop: 03/27/19 09:23 Last Admin: 03/03/19 20:55 Dose: 100 mg Calcitriol (Rocaltrol) 0.5 mcg PO DAILY [facility] Stop: 04/01/19 09:01 Last Admin: 03/07/19 08:40 Dose: Not Given Cephalexin HCl (Keflex) 500 mg PO Q6HR [facility]; Protocol Stop: 04/02/19 12:01 Last Admin: 03/08/19 05:51 Dose: 500 mg Cholecalciferol (Vitamin D 5,000 Iu Cap) 5,000 unit PO DAILY [facility] Stop: 04/01/19 09:01 Last Admin: 03/07/19 08:40 Dose: Not Given Collagenase (Santyl Ointment) 1 appl TOP DAILY [facility] Stop: 04/04/19 12:01 Last Admin: 03/07/19 09:00 Dose: 1 appl Enoxaparin Sodium (Lovenox 100 Mg Inj) 100 mg 1 mg/kg (170 mg) SQ Q12HR [facility] Stop: 04/03/19 21:01 Last Admin: 03/06/19 09:00 Dose: Not Given Enoxaparin Sodium (Lovenox 80 Mg Inj) 70 mg SQ Q12HR [facility] Stop: 04/03/19 21:01 Last Admin: 03/06/19 09:00 Dose: Not Given Furosemide (Lasix) 40 mg IV Q6H [facility] Stop: 04/07/19 00:02 Last Admin: 03/08/19 05:51 Dose: 40 mg Guaifenesin (Robitussin 100mg/5ml) 100 mg PO QID PRN PRN Reason: COUGH Stop: 03/28/19 20:32 Last Admin: 03/03/19 23:28 Dose: 100 mg Vancomycin HCl 2 gm/ Sodium (Chloride) 500 mls @ 250 mls/hr IVPB Q24H [facility]; Protocol Stop: 04/05/19 10:01 Last Admin: 03/07/19 09:57 Dose: 500 mls Lactulose (Cephulac) 30 gm PO BID [facility] Stop: 04/06/19 21:01 Last Admin: 03/07/19 20:57 Dose: 30 gm Levalbuterol HCl (Xopenex) 1.25 mg NEB [id number] [facility] Stop: 04/02/19 14:01 Last Admin: 03/08/19 08:11 Dose: 1.25 mg Mannitol (Mannitol 12.5 Gm/50 Ml Vial) 25 gm IV Q6H [facility] Stop: 03/08/19 22:01 Midodrine (Proamatine) 10 mg PO TID [facility] Stop: 03/31/19 10:01 Last Admin: 03/07/19 21:06 Dose: 10 mg Mupirocin (Bactroban 2% Ointment) 1 appl TOP BID [facility] Stop: 04/02/19 12:01 Last Admin: 03/07/19 20:56 Dose: 1 appl Nystatin (Mycostatin (Powder)) 1 appl TOP BID [facility] Stop: 03/30/19 09:07 Last Admin: 03/07/19 21:00 Dose: 1 appl Ondansetron HCl (Zofran) 4 mg IV Q6HP PRN PRN Reason: NAUSEA / VOMITING Stop: 03/26/19 19:38 Phenol (Phenaseptic [place]) 2 appl MM Q4H PRN PRN Reason: SORE THROAT Stop: 03/27/19 09:23 Last Admin: 03/02/19 20:48 Dose: 2 appl Rifaximin (Xifaxan) 550 mg PO BID [facility]; Protocol Stop: 04/05/19 21:01 Last Admin: 03/07/19 21:07 Dose: 550 mg Sodium Chloride (Normal Saline Flush) 10 ml IV BID [facility] Stop: 03/26/19 21:01 Last Admin: 03/07/19 21:06 Dose: 10 ml Assessment/ Plan: Nephrology. Respiratory distress on bipap. +urine ouput. Persistent diffuse edema. No acute events overnight. Limited IH/ ROS due to somnolence/ poor responsiveness. Vitals, medications, blood work and imaging reviewed in the chart. General: Cooperative HEENT: Mucous membr. moist/pink Neck: Supple, No LAD Respiratory: Diminished. Bipap therapy. Cardiovascular: Tachycardic, No rubs, Edema, Anasarca. Gastrointestinal: Soft and benign, Non-distended, No guarding Musculoskeletal: No clubbing, No contractures Integumentary: No rashes, Skin breakdown, Skin lesion, Cyanosis Greater than 30 min patient care. Blood work reviewed in the chart. Initial serum creatinine 1.31 Imagings Data: 2 DIMENSIONAL ASSESSMENT: RIGHT ATRIUM: NORMAL LEFT ATRIUM: DILATED RIGHT VENTRICLE: NORMAL LEFT VENTRICLE: NORMAL TRICUSPID VALVE: NORMAL MITRAL VALVE: NORMAL PULMONIC VALVE: NORMAL AORTIC VALVE: SCLEROSIS PERICARDIAL EFFUSION: NONE AORTIC ROOT: NORMAL LEFT VENTRICULAR WALL MOTION: LOWER LIMIT OF NORMAL CONTRACTILITY. DOPPLER/COLOR FLOW: TECHNICALLY DIFFICULT STUDY. COMMENTS: TECHNICALLY DIFFICULT STUDY. NORMAL LEFT VENTRICULAR EJECTION FRACTION. DILATED LEFT ATRIUM. AORTIC SCLEROSIS WITH NO AORTIC STENOSIS. EXAM DESCRIPTION: US - Renal Ultrasound-Complete - 02/27/2019 5:35 pm CLINICAL HISTORY: Acute renal insufficiency FINDINGS: The examination is limited secondary to body habitus The right kidney measures 11 cm with an increased echotexture. The left kidney measures 11 cm with an increased echotexture. Hydronephrosis is not seen. A bladder poorly evaluated as it is decompressed IMPRESSION: Increased renal echotexture consistent with parenchymal disease. EXAM DESCRIPTION: RAD - Chest Pa And Lat (2 Views) - 02/25/2019 6:54 am CLINICAL HISTORY: volume overload Chest pain. COMPARISON: Chest Single View dated 02/24/2019; Chest Single View dated 11/14/2017 ; Chest Single View dated 11/12/2017; Chest Single View dated 11/12/2017 FINDINGS: Mild interstitial prominence is again noted, appearing mildly improved since the comparative study. The heart is moderately enlarged in size. No displaced fractures. IMPRESSION: Mild improvement lung aeration since comparative study. Conclusions/Impression: A/ BRANDON likely CRS. CKD III. Acute hepatitis of unclear etiology. Hepatic congestion? Elevated ammonia level. Hypoalbuminemia. Chronic respiratory failure with hypoxia and hypercarbia. Hypoventilation syndrome. MASON? Secondary Polycythemia. Diastolic CHF, A/C. Anasarca. Hypervolemia. Hypotension of unclear etiology. Distal LE Cyanosis. Right toe ulcer. Toxic Metabolic Encephalopathy. Morbid Obesity. P/ Continue current POC and Medications. Continue aggressive diuresis as tolerated in the setting of hypotension. Intermittent Mannitol as tolerated. Continue Lasix and Amiloride; Will consider Diamox as needed. Replete potassium as needed. Midrodrine for hypotension. Bipap therapy as ordered. No NSAIDs. AM labs. Daily weight. Case discussed with Dr. Tidwell.
[2019-03-08] MEDS: MIDODRINE HCL 5 MG TABLET PO SCH ×3 (09:50→20:26)
[2019-03-08] MEDS: VITAMIN D 5,000 UNIT CAP PO SCH (09:50)
[2019-03-08] MEDS: Rifaximin 550 MG Tab PO SCH ×2 (09:50→20:24)
[2019-03-08] MEDS: LACTULOSE 20 GM/30 ML UCUP PO SCH ×2 (09:51→20:25)
[2019-03-08] MEDS: CALCITROL 0.25 MCG CAP PO SCH (09:51)
[2019-03-08] MEDS: VANCOMYCIN 2 GM in NA CHLORIDE 0.9% 500 ML IVPB SCH (10:00)
[2019-03-08] MEDS ORDERED: MANNITOL 25% 12.5 GM/50 ML VIAL IV SCH ×2 (10:00→14:00)
[2019-03-08] MEDS: VANCOMYCIN 1.75 GM in NA CHLORIDE 0.9% 500 ML IVPB SCH (13:18)
--- NOTE | 2019-03-08 14:58 | P.PN ---
Subjective Date of Service: 03/08/19 Chief Complaint: Generalized edema RESPIRATORY FAILURE Subjective: No new changes Patient seen and examined at bedside. No family at bedside. Chart reviewed and case discussed with nursing staff. Patient continues to be drowsy, but now following commands more appropriately Kept bi-pap on all night. Still with generalized anasarca Review of Systems 10-point ROS is otherwise unremarkable Physical Examination - Vital Signs Temperature: 96.7 F Blood Pressure: 127/89 Pulse: 81 Respirations: 18 Pulse Ox (%): 95 - Physical Exam General: Other (drowsy but able to follow commands) Cardiovascular: Regular rate/rhythm, Edema (generalized) Gastrointestinal: Normal bowel sounds, No tenderness Integumentary: Skin lesion Assessment And Plan - Current Problems (Diagnosis) (1) Acute renal injury Onset Date: 11/15/17 Current Visit: No Status: Acute (2) Anasarca Current Visit: No Status: Acute (3) Morbidly obese Current Visit: No Status: Chronic (4) Tachycardia Current Visit: Yes Status: Acute (5) Acute alteration in mental status Current Visit: Yes Status: Acute (6) Atrial flutter Current Visit: Yes Status: Acute Qualifiers: Atrial flutter type: unspecified Qualified Code(s): I48.92 - Unspecified atrial flutter (7) Toe laceration Current Visit: Yes Status: Acute Qualifiers: Encounter type: initial encounter (8) Noncompliance Current Visit: Yes Status: Acute (9) Chronic kidney disease Current Visit: Yes Status: Chronic Qualifiers: Chronic kidney disease stage: stage 3 (moderate) Qualified Code(s): N18.3 - Chronic kidney disease, stage 3 (moderate) (10) Chronic diastolic heart failure Current Visit: Yes Status: Chronic - Plan Altered mentation, confusion. Transient Hypoventilation, refusing bi-pap Toxic Hepatic encephalopathy Differential diagnoses include: Seizure, TIA/stroke, hypoventalation/ hypercapnia, infection CT negative for acute abnormalities; MRI unable to be done due to body habitus and pt unable to lie flat. Patient continues to be confused, though improved slightly on bi-pap. Patient currently cooperative with Bi-pap. Continue lactulose. We can do [place] if patient not able to tolerate PO. Unable to have a discussion regarding goals of care as patient not able to stay awake. Discussed with mother regarding LTAC. SW consulted, referral sent to [facility], pending insurance verification. Diffuse Anasarca Acute on chronic diastolic heart failure Continue Aggressive diuresis with IV Lasix. Supportive care with oxygen and bipap as needed Strict in and output, continues to have negative fluid balance. Acute on chronic renal injury Creatinine continues to be elevated, likely secondary to volume overload. Continue IV diuresis. nephrology on board, recommendations appreciated. Will continue to monitor with a.m. labs Atrial flutter In NSR s/p cardioversion done on 03/07/2019 Continue to monitor Elevated liver enzymes Likely secondary to anasarca, hepatic congestion. hepatitis panel negative Right foot laceration, 3rd toe Wound cultures positive for MRSA Continue wound care. Continue vancomycin. General surgery consulted. She was supposed to go for I and D today which has been postponed secondary to her altered mentation. Possible surgical intervention as outpatient with I and D once mentation improved and stable. Lower extremity cyanosis secondary to severe edema. Atrial Dopplers negative for stenosis Venous ultrasound negative for DVT bilaterally Anxiety Morbidly obese, BMI of 65 She will need education regarding lifestyle modifications and medication compliance. Polycythemia History of noncompliance, intentional DVT prophylaxis: Lovenox GI prophylaxis: None Diet: Fluid restriction Disposition: Pending symptomatic improvement; LTAC, insurance verification/ acceptance pending.
[2019-03-08] MEDS: MANNITOL 25% 12.5 GM/50 ML VIAL IV SCH (20:24)
[2019-03-08 23:09] LABS: Urine Appearance CLEAR; Urine Bilirubin NEGATIVE (NEG); Urine Blood 2+ (NEG); Urine Color YELLOW; Urine Glucose NEGATIVE (NEG); Urine Protein NEGATIVE (NEG); Urine Specific Gravity 1.015 (1.005-1.030)
[2019-03-09 00:55] LABS: Urine Bacteria >50 /HPF (<20); Urine Culture Reflex Order REFLEXED; Urine RBC 20-50 /HPF (NONE SEEN)
[2019-03-09] MEDS: MANNITOL 25% 12.5 GM/50 ML VIAL IV SCH (01:22)
[2019-03-09] MEDS ORDERED: MANNITOL 25% 100 ML IV ONE (01:29)
[2019-03-09] MEDS: LEVALBUTEROL 1.25 MG/3 ML NEB NEB SCH ×4 (02:00→20:00)
[2019-03-09] MEDS: AMILORIDE HCL 5 MG TABLET PO SCH ×4 (03:30→21:36)
[2019-03-09] MEDS: FUROSEMIDE 40 MG/4 ML VIAL IV SCH ×4 (05:22→23:35)
[2019-03-09] MEDS: CEPHALEXIN 500 MG CAP PO SCH ×4 (05:22→23:35)
[2019-03-09 06:42] LABS: Magnesium 2.2 mg/dL (1.8-2.4); Potassium 3.5 mmol/L (3.5-5.1)
[2019-03-09] MEDS: LACTULOSE 20 GM/30 ML UCUP PO SCH ×2 (08:25→21:36)
[2019-03-09] MEDS: CALCITROL 0.25 MCG CAP PO SCH (08:25)
[2019-03-09] MEDS: VITAMIN D 5,000 UNIT CAP PO SCH (08:25)
[2019-03-09] MEDS: MIDODRINE HCL 5 MG TABLET PO SCH ×3 (08:25→21:36)
[2019-03-09] MEDS: COLLAGENASE 30 GM OINTMENT TOP SCH (08:42)
[2019-03-09] MEDS: MUPIROCIN 2% OINT 22GM TUBE TOP SCH ×2 (08:43→21:39)
[2019-03-09] MEDS: NYSTATIN PWDR 100000 UNIT/GM TOP SCH ×2 (08:44→21:39)
[2019-03-09] MEDS ORDERED: POTASSIUM 25 MEQ EFFERV TAB PO ONE (09:00)
[2019-03-09] MEDS: Rifaximin 550 MG Tab PO SCH ×2 (10:15→21:37)
--- NOTE | 2019-03-09 10:20 | P.PN ---
Subjective Date of Service: 03/09/19 Chief Complaint: Generalized edema RESPIRATORY FAILURE Subjective: Improving (Patient is improving she is more alert responsive cooperative tolerating BiPAP) Review of Systems General: Weakness Respiratory: Shortness of Breath Physical Examination - Vital Signs Temperature: 97.1 F Blood Pressure: 93/63 Pulse: 96 Respirations: 14 Pulse Ox (%): 93 - Physical Exam General: Alert, Oriented x3 Respiratory: Clear to auscultation bilaterally, Diminished Cardiovascular: Edema Assessment & Plan - Problems (Diagnosis) (1) Fatty liver Current Visit: Yes Status: Acute Plan: I strongly suspect that the patient has cirrhotic liver abnormal LFTs elevated ammonia altered mental status generalized anasarca continue with lactulose she is more alert responsive cooperative consider changing to spironolactone (2) Respiratory failure with hypoxia and hypercapnia Current Visit: Yes Status: Acute Plan: Patient is currently doing well I suspect patient has obesity hyperventilation syndrome the new with BiPAP chronic hypoxemia with hypercarbia developed AFib cardioverted change to p.o. Eliquis Qualifiers: Chronicity: acute on chronic Qualified Code(s): J96.21 - Acute and chronic respiratory failure with hypoxia; J96.22 - Acute and chronic respiratory failure with hypercapnia (3) Wound infection Current Visit: Yes Status: Acute Plan: Patient has infection of her toe I recommend changing to p.o. tetracycline blood cultures are all negative
[2019-03-09] MEDS: VANCOMYCIN 1.75 GM in NA CHLORIDE 0.9% 500 ML IVPB SCH (12:02)
--- NOTE | 2019-03-09 13:21 | P.PN ---
Subjective Date of Service: 03/09/19 Chief Complaint: Generalized edema RESPIRATORY FAILURE Subjective: Improving Patient seen and examined at bedside. No family at bedside. Chart reviewed and case discussed with nursing staff. Patient much more alert and awake this morning Kept bi-pap on all night. Still with generalized anasarca Review of Systems 10-point ROS is otherwise unremarkable Physical Examination - Vital Signs Temperature: 97.1 F Blood Pressure: 132/108 Pulse: 94 Respirations: 12 Pulse Ox (%): 93 - Physical Exam General: Alert, Oriented x3, Mild distress, Moderate distress HEENT: Atraumatic, PERRLA, EOMI Neck: Supple, JVD not distended Cardiovascular: Edema (Generalized) Integumentary: Skin lesion Assessment And Plan - Current Problems (Diagnosis) (1) Acute renal injury Onset Date: 11/15/17 Current Visit: No Status: Acute (2) Anasarca Current Visit: No Status: Acute (3) Morbidly obese Current Visit: No Status: Chronic (4) Tachycardia Current Visit: Yes Status: Acute (5) Acute alteration in mental status Current Visit: Yes Status: Acute (6) Atrial flutter Current Visit: Yes Status: Acute Qualifiers: Atrial flutter type: unspecified Qualified Code(s): I48.92 - Unspecified atrial flutter (7) Toe laceration Current Visit: Yes Status: Acute Qualifiers: Encounter type: initial encounter (8) Noncompliance Current Visit: Yes Status: Acute (9) Chronic kidney disease Current Visit: Yes Status: Chronic Qualifiers: Chronic kidney disease stage: stage 3 (moderate) Qualified Code(s): N18.3 - Chronic kidney disease, stage 3 (moderate) (10) Chronic diastolic heart failure Current Visit: Yes Status: Chronic - Plan Altered mentation, confusion. Transient Hypoventilation, refusing bi-pap Toxic Hepatic encephalopathy Differential diagnoses include: Seizure, TIA/stroke, hypoventalation/ hypercapnia, infection CT negative for acute abnormalities; MRI unable to be done due to body habitus and pt unable to lie flat. Patient improved on bi-pap. Patient currently cooperative with Bi-pap. Continue lactulose. We can do [place] if patient not able to tolerate PO. Unable to have a discussion regarding goals of care as patient not able to stay awake. Discussed with mother regarding LTAC. SW consulted, referral sent to [facility], pending insurance verification. Diffuse Anasarca Acute on chronic diastolic heart failure Continue Aggressive diuresis with IV Lasix. Nephrology on board Supportive care with oxygen and bipap as needed Strict in and output, continues to have negative fluid balance. Acute on chronic renal injury Creatinine continues to be elevated, likely secondary to volume overload. Continue IV diuresis. nephrology on board, recommendations appreciated. Will continue to monitor with a.m. labs Atrial flutter In NSR s/p cardioversion done on 03/07/2019 Continue to monitor Elevated liver enzymes Likely secondary to anasarca, hepatic congestion. hepatitis panel negative Right foot laceration, 3rd toe Wound cultures positive for MRSA Continue wound care. Continue vancomycin. We will switch to oral doxycycline once tolerating p.o. better. General surgery consulted. She was supposed to go for I and D today which has been postponed secondary to her altered mentation. Possible surgical intervention as outpatient with I and D once mentation improved and stable. Lower extremity cyanosis secondary to severe edema. Atrial Dopplers negative for stenosis Venous ultrasound negative for DVT bilaterally Anxiety Morbidly obese, BMI of 65 She will need education regarding lifestyle modifications and medication compliance. Polycythemia History of noncompliance, intentional DVT prophylaxis: Lovenox GI prophylaxis: None Diet: Fluid restriction Disposition: Pending symptomatic improvement; LTAC, insurance verification/ acceptance pending.
--- NOTE | 2019-03-09 19:02 | PN ---
Date of Progress Note: 03/09/2019 Subjective: The patient is seen at bedside. The patient remains in ICU. There were no overnight ev ents reported. The patient is somnolent, but arousable. Has no acute complaints at this time. Objective: Vital Signs: Blood pressure is 132/108, pulse 94, afebrile. General: Morbidly obese. Heart: Regular rate and rhythm. No murmurs, rubs, gallops. Lungs: Difficult exam, but decreased breath sounds at the bases. Abdomen: Distended, nontender. Soft. Extremities: 4+ edema bilaterally. Generalized anasarca noted. Laboratory Data: Serum chemistry sodium 142, potassium 4, chloride 103, CO2 31, BUN 31, creatinine 1 .33, calcium 9.2. Hepatic enzymes, AST 129, ALT 149, bilirubin 3.4, ammonia level is 98. CBC was re viewed. UA from yesterday was positive for UTI. Last vancomycin level was 20. Current Medications: Reviewed. Of note, patient is on Keflex 500 q.6 hours, vancomycin 1.7 g daily, midodrine 10 mg p.o. t.i.d., Lasix 40 mg IV q.6 hours, amiloride 10 mg p.o. q.6 hours. Impression: 1.Anasarca. 2.Obesity hypoventilation syndrome. 3.Functional hepatic dysfunction. 4.Altered mental status. 5.Morbid obesity. Plan: Continue diuresis. Maintain negative balance. Will up-titrate Lasix as needed to ensure the patient is -1 to 2 L daily. Continue low-sodium diet, fluid restriction 1.5 L. SE/MODL Voice ID: [id number] Report ID: [id number]
[2019-03-09] MEDS: guaiFENesin 100 MG/5 ML UCUP PO PRN (21:36)
[2019-03-09] MEDS: APIXABAN 5 MG TABLET PO SCH (21:37)
[2019-03-09] MEDS: BENZONATATE 100 MG CAP PO PRN (23:36)
[2019-03-10] MEDS: LEVALBUTEROL 1.25 MG/3 ML NEB NEB SCH ×4 (02:00→20:00)
[2019-03-10] MEDS: AMILORIDE HCL 5 MG TABLET PO SCH ×4 (03:30→22:08)
[2019-03-10] MEDS: FUROSEMIDE 40 MG/4 ML VIAL IV SCH ×3 (05:08→16:35)
[2019-03-10 06:04] LABS: Protime INR 1.84
[2019-03-10 06:09] LABS: Albumin 2.5 g/dL (3.4-5.0); Bilirubin Direct 2.4 mg/dL (0-0.2); Bilirubin Total 3.9 mg/dL (0.2-1.0); CKMB Creatine Kinase MB 2.4 ng/mL (0.3-3.6); Protein, Total 6.4 g/dL (6.4-8.2); Troponin I 0.04 ng/mL (0.0-0.045)
[2019-03-10 06:10] LABS: Magnesium 2.1 mg/dL (1.8-2.4); Phosphorus 2.5 mg/dL (2.5-4.9); Potassium 2.9 mmol/L (3.5-5.1)
[2019-03-10] MEDS ORDERED: POTASSIUM PHOS IN 0.9 % NACL 15 MMOL/250 ML BAG IV ONE (06:27)
[2019-03-10] MEDS: MUPIROCIN 2% OINT 22GM TUBE TOP SCH ×2 (08:45→22:09)
[2019-03-10] MEDS: APIXABAN 5 MG TABLET PO SCH ×2 (08:45→22:09)
[2019-03-10] MEDS: VITAMIN D 5,000 UNIT CAP PO SCH (08:45)
[2019-03-10] MEDS: LACTULOSE 20 GM/30 ML UCUP PO SCH (08:45)
[2019-03-10] MEDS: MIDODRINE HCL 5 MG TABLET PO SCH ×3 (08:46→22:09)
[2019-03-10] MEDS: CALCITROL 0.25 MCG CAP PO SCH (08:46)
[2019-03-10] MEDS: NYSTATIN PWDR 100000 UNIT/GM TOP SCH ×2 (08:46→21:00)
[2019-03-10] MEDS: KCL 20 MEQ/100 mL IVPB 20 MEQ/100 ML BAG IV SCH ×2 (11:20→13:35)
[2019-03-10] MEDS: Rifaximin 550 MG Tab PO SCH ×2 (11:22→21:00)
[2019-03-10] MEDS: VANCOMYCIN 1.75 GM in NA CHLORIDE 0.9% 500 ML IVPB SCH (11:26)
[2019-03-10] MEDS: COLLAGENASE 30 GM OINTMENT TOP SCH (12:29)
--- NOTE | 2019-03-10 15:56 | P.PN ---
Subjective Date of Service: 03/10/19 Chief Complaint: Generalized edema RESPIRATORY FAILURE Subjective: Improving Patient seen and examined at bedside. No family at bedside. Chart reviewed and case discussed with nursing staff. Patient much more alert and awake this morning She is off of BiPAP Still with generalized anasarca Review of Systems 10-point ROS is otherwise unremarkable Physical Examination - Vital Signs Temperature: 97.0 F Blood Pressure: 111/91 Pulse: 83 Respirations: 12 Pulse Ox (%): 94 - Physical Exam General: In no apparent distress, Other (Drowsy but arousable. Alert oriented x3) Respiratory: Diminished Cardiovascular: Regular rate/rhythm, Normal S1 S2, Edema (Generalized) Gastrointestinal: Normal bowel sounds, No tenderness Musculoskeletal: No tenderness Assessment And Plan - Current Problems (Diagnosis) (1) Acute renal injury Onset Date: 11/15/17 Current Visit: No Status: Acute (2) Anasarca Current Visit: No Status: Acute (3) Morbidly obese Current Visit: No Status: Chronic (4) Tachycardia Current Visit: Yes Status: Acute (5) Acute alteration in mental status Current Visit: Yes Status: Acute (6) Atrial flutter Current Visit: Yes Status: Acute Qualifiers: Atrial flutter type: unspecified Qualified Code(s): I48.92 - Unspecified atrial flutter (7) Toe laceration Current Visit: Yes Status: Acute Qualifiers: Encounter type: initial encounter (8) Noncompliance Current Visit: Yes Status: Acute (9) Chronic kidney disease Current Visit: Yes Status: Chronic Qualifiers: Chronic kidney disease stage: stage 3 (moderate) Qualified Code(s): N18.3 - Chronic kidney disease, stage 3 (moderate) (10) Chronic diastolic heart failure Current Visit: Yes Status: Chronic - Plan Altered mentation, confusion. Transient Hypoventilation, refusing bi-pap Toxic Hepatic encephalopathy Differential diagnoses include: Seizure, TIA/stroke, hypoventalation/ hypercapnia, infection CT negative for acute abnormalities; MRI unable to be done due to body habitus and pt unable to lie flat. Patient improved on bi-pap. Patient currently cooperative with Bi-pap. Discontinued lactulose. As patient was more awake today, discussed regarding LTAC. Patient still not understanding L tach facility. As she states that she will talk to her mother. Discussed with mother regarding LTAC. SW consulted, referral [facility], pending insurance verification. Diffuse Anasarca Acute on chronic diastolic heart failure Continue Aggressive diuresis with IV Lasix. Nephrology on board Supportive care with oxygen and bipap as needed Strict in and output, continues to have negative fluid balance. Acute on chronic renal injury Creatinine continues to be elevated, likely secondary to volume overload. Continue IV diuresis. nephrology on board, recommendations appreciated. Will continue to monitor with a.m. labs Atrial flutter In NSR s/p cardioversion done on 03/07/2019 Continue to monitor Elevated liver enzymes Likely secondary to anasarca, hepatic congestion. hepatitis panel negative Right foot laceration, 3rd toe Wound cultures positive for MRSA Continue wound care. Continue vancomycin. We will switch to oral doxycycline once tolerating p.o. better. General surgery consulted. She was supposed to go for I and D today which has been postponed secondary to her altered mentation. Possible surgical intervention as outpatient with I and D once mentation improved and stable. Lower extremity cyanosis secondary to severe edema. Atrial Dopplers negative for stenosis Venous ultrasound negative for DVT bilaterally Anxiety Morbidly obese, BMI of 65 She will need education regarding lifestyle modifications and medication compliance. Polycythemia History of noncompliance, intentional DVT prophylaxis: Lovenox GI prophylaxis: None Diet: Fluid restriction Disposition: Pending symptomatic improvement; LTAC, insurance verification/ acceptance pending. Discharge Plan: LTAC
[2019-03-10] MEDS: BENZONATATE 100 MG CAP PO PRN (22:09)
[2019-03-11] MEDS: LEVALBUTEROL 1.25 MG/3 ML NEB NEB SCH ×4 (02:00→20:00)
[2019-03-11] MEDS: AMILORIDE HCL 5 MG TABLET PO SCH ×4 (04:00→21:06)
[2019-03-11] MEDS ORDERED: POTASSIUM 25 MEQ EFFERV TAB PO SCH (05:50)
[2019-03-11] MEDS: FUROSEMIDE 40 MG/4 ML VIAL IV SCH ×4 (06:01→18:42)
[2019-03-11] MEDS ORDERED: POTASSIUM 25 MEQ EFFERV TAB PO ONE (06:02)
[2019-03-11] MEDS ORDERED: POTASSIUM CL SA 10 MEQ TAB PO ONE (06:04)
[2019-03-11] MEDS: POTASSIUM CL SA 10 MEQ TAB PO ONE (07:09)
[2019-03-11] MEDS: Rifaximin 550 MG Tab PO SCH (09:00)
[2019-03-11] MEDS: COLLAGENASE 30 GM OINTMENT TOP SCH (09:00)
[2019-03-11] MEDS: NYSTATIN PWDR 100000 UNIT/GM TOP SCH ×2 (09:00→21:00)
[2019-03-11] MEDS: MUPIROCIN 2% OINT 22GM TUBE TOP SCH ×2 (09:00→21:07)
[2019-03-11] MEDS: APIXABAN 5 MG TABLET PO SCH ×2 (10:17→21:07)
[2019-03-11] MEDS: VITAMIN D 5,000 UNIT CAP PO SCH (10:17)
[2019-03-11] MEDS: CALCITROL 0.25 MCG CAP PO SCH (10:17)
[2019-03-11] MEDS: MIDODRINE HCL 5 MG TABLET PO SCH ×3 (10:20→21:06)
[2019-03-11] MEDS: VANCOMYCIN 1.75 GM in NA CHLORIDE 0.9% 500 ML IVPB SCH (11:00)
[2019-03-11] MEDS: BENZONATATE 100 MG CAP PO PRN (13:50)
--- NOTE | 2019-03-11 14:33 | RAD REPORT ---
EXAM DESCRIPTION: US - UPPER EXTREMITY VENOUS UNILATE - 03/11/2019 1:44 pm CLINICAL HISTORY: bruising/pain right upper extremity/post PICC line Arm pain and swelling. COMPARISON: Extrem Venous W Compress [place] dated 03/04/2019 FINDINGS: Right upper extremity venous system was interrogated with Doppler technique. The distal ba silic vein is noncompressible with evidence of thrombus. A small amount of thrombus is also seen in t he proximal right basilic vein. IMPRESSION: Mild thrombus is present in sections of the basilic vein, both proximal and distal.
[2019-03-11] MEDS ORDERED: POTASSIUM CL 40 MEQ in NA CHLORIDE 0.9% 500 ML IV SCH (16:00)
--- NOTE | 2019-03-11 19:05 | P.DS ---
Admission Date: 02/24/19 Discharge Date: 03/11/19 Disposition: RETIREMENT ACUTE CARE FACILITY Discharge Condition: FAIR Reason for Admission: Generalized edema RESPIRATORY FAILURE Consultations: Cardiology Nephrology Pulmonology General surgery Procedures: 03/07/19: Cardioversion, successful - Problems (1) Acute renal injury Onset Date: 11/15/17 Current Visit: No Status: Acute (2) Anasarca Current Visit: No Status: Acute (3) Morbidly obese Current Visit: No Status: Chronic (4) Tachycardia Current Visit: Yes Status: Acute (5) Acute alteration in mental status Current Visit: Yes Status: Acute (6) Atrial flutter Current Visit: Yes Status: Acute Qualifiers: Atrial flutter type: unspecified Qualified Code(s): I48.92 - Unspecified atrial flutter (7) Toe laceration Current Visit: Yes Status: Acute Qualifiers: Encounter type: initial encounter (8) Noncompliance Current Visit: Yes Status: Acute (9) Chronic kidney disease Current Visit: Yes Status: Chronic Qualifiers: Chronic kidney disease stage: stage 3 (moderate) Qualified Code(s): N18.3 - Chronic kidney disease, stage 3 (moderate) (10) Chronic diastolic heart failure Current Visit: Yes Status: Chronic (11) MRSA (methicillin resistant staph aureus) culture positive Current Visit: Yes Status: Acute (12) Morbid obesity with alveolar hypoventilation Current Visit: Yes Status: Acute (13) Wound infection Current Visit: Yes Status: Acute Brief History of Present Illness: This is a 53-year-old obese female admitted for generalized edema. Per patient , all of this started when she was admitted for sepsis a few months ago. Since then, she has been retaining fluid. She has complaints of abdominal distention. For the past 1 month, she states that she saw herself swell up. She kept thinking that it would get better but swelling has been progressively worsening, where now she cannot really walk. She states that she cannot lay flat either due to shortness of breath. In the ER, patient was tachycardic to heart rate of 126. She was also tachypneic. Blood pressure was stable. She was satting well on room air though was having shortness of breath with lying back or much exertion. Her labs were remarkable for a elevated BNP and a creatinine of 1.31. Her chest x- ray was without any acute abnormalities. At the time of my exam, She was AAOx3, in no acute distress but significant generalized pitting edema Hospital Course: Patient was admitted for anasarca. She was started with IV Lasix for aggressive diuresis. Her IV Lasix was increased to 60 mg twice a day. Echo was ordered, which showed diastolic failure along with pulmonary insufficiency. She was provided supportive care with oxygen as needed. Her stay was complicated by acute renal injury and her creatinine continued to be elevated. This was thought to be likely secondary to volume overload. Nephrology was consulted. IV diuresis was continued. Her stay was further complicated by tachycardia which converted to atrial flutter. She was started on Lovenox and Betapace, which failed to convert her rhythm. Cardiology was consulted, she was successfully cardioverted. She remained in normal sinus rhythm after the cardioversion. Her stay was even further complicated by altered mentation, confusion which was transient. It seems that patient due to her morbid obesity may also have metabolic hypoventilation syndrome causing her to be hypercapnic. Stat CT and MRI were ordered. CT scan was negative for any acute abnormalities. MRI was unable to be done as patient not able to tolerate a may close to areas and unable to lie flat due to respiratory distress. She was then transferred to the ICU in case she did need to be intubated. Pulmonology was consulted. Blood gases did not show severe hypercapnia and more fairly unremarkable. She did not need to be intubated. She was placed on BiPAP, she was uncooperative for 1st. But was able to tolerate the BiPAP. She was eventually weaned off the BiPAP. Her mentation also improved. She remains stable, therefore was transferred back to the floor. She was also found to have elevated liver enzymes, likely secondary to anasarca. Her ammonia levels were elevated. This may have caused her transient altered mentation. She was started on lactulose. She had multiple bowel movements, therefore lactulose was discontinued. She was found to have a low right foot laceration on her 3rd toe. Wound care was started. She was started on oral antibiotics. General surgery was consulted and she was going to go for an I and D. I and D had to be postponed due to patient's altered mentation and confusion. It was eventually decided that patient would get an I and D as an outpatient. Her wound cultures did come back positive for MRSA, and she was started on IV antibiotics with vancomycin. She will need long-term IV antibiotics with IV vancomycin. Her arterial Doppler was negative for any stenosis and venous ultrasound were negative for any DVT bilaterally. Social work was consulted for further disposition/discharge planning. It was decided that patient would benefit from a long-term acute care facility placement. Initially, this was explained to the patient that she was very care discussed with mother via telephone. L tach process was started. End once patient was more alert, this was discussed and patient agreed and verbalized understanding. [facility] to [facility] once accepted. Vital Signs/Physical Exam: Temp Pulse Resp BP Pulse Ox 97.7 F 82 18 119/73 91 03/11/19 16:00 03/11/19 18:42 03/11/19 16:00 03/11/19 18:42 03/11/19 16:00 General: Alert, Oriented x3, Mild distress, Moderate distress, Obese (Morbid), Other (Drowsiness, though much more awake and alert.) Respiratory: Diminished, Crackles/rales, Expiratory wheezes Cardiovascular: Edema (Generalized ) Gastrointestinal: Normal bowel sounds, No tenderness Musculoskeletal: Swelling Integumentary: Skin breakdown, Skin lesion, Tenderness/swelling, Erythema Laboratory Data at Discharge: WBC 10.4 K/uL (4.3-10.9) 03/08/19 05:00 Hgb 16.6 g/dL (12.0-15.0) H 03/08/19 05:00 Hct 50.3 % (36.0-45.0) H 03/08/19 05:00 Plt Count 160 K/uL (152-406) 03/08/19 05:00 PT 21.2 SECONDS (9.5-12.5) H 03/10/19 04:55 INR 1.84 03/10/19 04:55 APTT 40.2 SECONDS (24.3-36.9) H 03/10/19 04:55 Sodium 142 mmol/L (136-145) 03/10/19 04:55 Potassium 3.3 mmol/L (3.5-5.1) L 03/11/19 14:13 BUN 30 mg/dL (7-18) H 03/10/19 04:55 Creatinine 1.21 mg/dL (0.55-1.3) 03/10/19 04:55 Glucose 163 mg/dL (74-106) H 03/10/19 04:55 Uric Acid 13.8 mg/dL (2.6-6.0) H 03/10/19 04:55 Phosphorus 2.5 mg/dL (2.5-4.9) 03/10/19 04:55 Magnesium 2.1 mg/dL (1.8-2.4) 03/10/19 04:55 Total Bilirubin 3.9 mg/dL (0.2-1.0) H 03/10/19 04:55 AST 60 U/L (15-37) H 03/10/19 04:55 ALT 88 U/L (12-78) H 03/10/19 04:55 Alkaline Phosphatase 71 U/L (45-117) 03/10/19 04:55 Troponin I 0.04 ng/mL (0.0-0.045) 03/10/19 04:55 Triglycerides 119 mg/dL (<150) 03/07/19 05:00 Cholesterol 74 mg/dL (<200) 03/07/19 05:00 HDL Cholesterol 17 mg/dL (40-60) L 03/07/19 05:00 Cholesterol/HDL Ratio 4.35 03/07/19 05:00 Home Medications: Apixaban [Eliquis] 5 mg PO BID tablet 03/11/19 Benzonatate [Tessalon Perle*] 100 mg PO TID PRN cap 03/11/19 Calcitrol [Rocaltrol*] 0.5 mcg PO DAILY cap 03/11/19 Cholecalciferol (Vitamin D3) [Vitamin D 5,000 IU Cap*] 5,000 unit PO DAILY cap 03/11/19 Collagenase [Santyl Ointment*] 1 appl TOP DAILY tube 03/11/19 Furosemide [Lasix 40 MG INJ*] 40 mg IV Q6HR vial 03/11/19 Levalbuterol [Xopenex*] 1.25 mg NEB [id number] vial 03/11/19 Midodrine HCl [Proamatine*] 10 mg PO TID tab 03/11/19 Mupirocin Oint [Bactroban 2% Ointment*] 1 appl TOP BID tube 03/11/19 Nystatin Powder [Mycostatin (Powder)*] 1 appl TOP BID btl 03/11/19 Patient Discharge Instructions: Please follow up with the primary care physician upon discharge. Diet: Fluid restriction Activity: Ad susanne Time spent managing pt's care (in minutes): 65
--- NOTE | 2019-03-11 20:29 | P.PN ---
Date of Service: 03/11/19 Vital Signs Temp Pulse Resp BP Pulse Ox 97.7 F 82 18 119/73 91 03/11/19 16:00 03/11/19 18:42 03/11/19 16:00 03/11/19 18:42 03/11/19 16:00 Medications Amiloride HCl (Midamor) 10 mg PO Q6H SMITA Stop: 04/03/19 10:01 Last Admin: 03/11/19 16:48 Dose: 10 mg Apixaban (Eliquis) 5 mg PO BID SMITA Stop: 04/08/19 21:01 Last Admin: 03/11/19 10:17 Dose: 5 mg Benzonatate (Tessalon Perle) 100 mg PO TID PRN PRN Reason: COUGH Stop: 03/27/19 09:23 Last Admin: 03/11/19 13:50 Dose: 100 mg Calcitriol (Rocaltrol) 0.5 mcg PO DAILY SMITA Stop: 04/01/19 09:01 Last Admin: 03/11/19 10:17 Dose: 0.5 mcg Cholecalciferol (Vitamin D 5,000 Iu Cap) 5,000 unit PO DAILY SMITA Stop: 04/01/19 09:01 Last Admin: 03/11/19 10:17 Dose: 5,000 unit Collagenase (Santyl Ointment) 1 appl TOP DAILY SMITA Stop: 04/04/19 12:01 Last Admin: 03/11/19 09:00 Dose: 1 appl Furosemide (Lasix) 40 mg IV Q6HR SMITA Stop: 04/07/19 09:13 Last Admin: 03/11/19 18:42 Dose: 40 mg Guaifenesin (Robitussin 100mg/5ml) 100 mg PO QID PRN PRN Reason: COUGH Stop: 03/28/19 20:32 Last Admin: 03/09/19 21:36 Dose: 100 mg Vancomycin HCl 1.75 gm/ Sodium (Chloride) 500 mls @ 250 mls/hr IVPB Q24H SMITA; Protocol Stop: 04/05/19 10:01 Last Admin: 03/11/19 11:00 Dose: 500 mls Levalbuterol HCl (Xopenex) 1.25 mg NEB [id number] SMITA Stop: 04/02/19 14:01 Last Admin: 03/11/19 13:52 Dose: 1.25 mg Midodrine (Proamatine) 10 mg PO TID [facility] Stop: 03/31/19 10:01 Last Admin: 03/11/19 13:35 Dose: 10 mg Mupirocin (Bactroban 2% Ointment) 1 appl TOP BID SMITA Stop: 04/02/19 12:01 Last Admin: 03/11/19 09:00 Dose: 1 appl Nystatin (Mycostatin (Powder)) 1 appl TOP BID SMITA Stop: 03/30/19 09:07 Last Admin: 03/11/19 09:00 Dose: 1 appl Ondansetron HCl (Zofran) 4 mg IV Q6HP PRN PRN Reason: NAUSEA / VOMITING Stop: 03/26/19 19:38 Phenol (Phenaseptic [place]) 2 appl MM Q4H PRN PRN Reason: SORE THROAT Stop: 03/27/19 09:23 Last Admin: 03/02/19 20:48 Dose: 2 appl Sodium Chloride (Normal Saline Flush) 10 ml IV BID [facility] Stop: 03/26/19 21:01 Last Admin: 03/11/19 09:00 Dose: 10 ml Assessment/ Plan: Nephrology. Feeling much better today with improved mental status. CPS stable without CP or SOB. +RG No acute events overnight. Vitals, medications, blood work and imaging reviewed in the chart. General: Cooperative HEENT: Mucous membr. moist/pink Neck: Supple, No LAD Respiratory: Diminished. Cardiovascular: Tachycardic, No rubs, Edema, Anasarca. Gastrointestinal: Soft and benign, Non-distended, No guarding Musculoskeletal: No clubbing, No contractures Integumentary: No rashes, Skin breakdown, Skin foot lesion, Cyanosis Greater than 30 min patient care. Blood work reviewed in the chart. Initial serum creatinine 1.31 Imagings Data: 2 DIMENSIONAL ASSESSMENT: RIGHT ATRIUM: NORMAL LEFT ATRIUM: DILATED RIGHT VENTRICLE: NORMAL LEFT VENTRICLE: NORMAL TRICUSPID VALVE: NORMAL MITRAL VALVE: NORMAL PULMONIC VALVE: NORMAL AORTIC VALVE: SCLEROSIS PERICARDIAL EFFUSION: NONE AORTIC ROOT: NORMAL LEFT VENTRICULAR WALL MOTION: LOWER LIMIT OF NORMAL CONTRACTILITY. DOPPLER/COLOR FLOW: TECHNICALLY DIFFICULT STUDY. COMMENTS: TECHNICALLY DIFFICULT STUDY. NORMAL LEFT VENTRICULAR EJECTION FRACTION. DILATED LEFT ATRIUM. AORTIC SCLEROSIS WITH NO AORTIC STENOSIS. EXAM DESCRIPTION: US - Renal Ultrasound-Complete - 02/27/2019 5:35 pm CLINICAL HISTORY: Acute renal insufficiency FINDINGS: The examination is limited secondary to body habitus The right kidney measures 11 cm with an increased echotexture. The left kidney measures 11 cm with an increased echotexture. Hydronephrosis is not seen. A bladder poorly evaluated as it is decompressed IMPRESSION: Increased renal echotexture consistent with parenchymal disease. EXAM DESCRIPTION: RAD - Chest Pa And Lat (2 Views) - 02/25/2019 6:54 am CLINICAL HISTORY: volume overload Chest pain. COMPARISON: Chest Single View dated 02/24/2019; Chest Single View dated 11/14/2017 ; Chest Single View dated 11/12/2017; Chest Single View dated 11/12/2017 FINDINGS: Mild interstitial prominence is again noted, appearing mildly improved since the comparative study. The heart is moderately enlarged in size. No displaced fractures. IMPRESSION: Mild improvement lung aeration since comparative study. Conclusions/Impression: A/ BRANDON likely CRS. CKD III. Acute hepatitis of unclear etiology. Hepatic congestion? Elevated ammonia level. Hypoalbuminemia. Chronic respiratory failure with hypoxia and hypercarbia. Hypoventilation syndrome. MASON? Secondary Polycythemia. Diastolic CHF, A/C. Anasarca. Hypervolemia. Hypotension of unclear etiology. Distal LE Cyanosis. Right toe ulcer. Toxic Metabolic Encephalopathy. Morbid Obesity. P/ Continue current POC and Medications. Continue aggressive diuresis as tolerated in the setting of hypotension. Intermittent Mannitol as tolerated. Continue Lasix and Amiloride; Will consider Diamox as needed. Replete potassium as ordered. Midrodrine for hypotension. Bipap therapy as needed. No NSAIDs. AM labs. Daily weight.
[2019-03-11 20:35] VITALS: BP 115/76; TEMP 97.5
[2019-03-11 21:45] VITALS: O2SAT 92
== END 2019-03-11 22:34 | DRG 682 ==
LOC: ER 14:40 → ERHOLD 17:46 → 2ND 19:28 → 3RD-ICU 03-06 15:58 → 4TH 03-10 15:10
PROVIDERS: ADMIT Family Medicine; ATTEND Family Medicine
PROC: 5A09457 Assistance with Respiratory Ventilation, 24-96 Consecutive Hours, Continuous Positive Airway Pressure (ICD-10-PCS; 2019-03-06)
PROC: 5A2204Z Restoration of Cardiac Rhythm, Single (ICD-10-PCS; principal; 2019-03-07)
DX: N17.9 Acute kidney failure, unspecified (principal); I50.33 Acute on chronic diastolic (congestive) heart failure; J96.22 Acute and chronic respiratory failure with hypercapnia; J96.21 Acute and chronic respiratory failure with hypoxia; Z68.44 Body mass index [BMI] 60.0-69.9, adult; B17.9 Acute viral hepatitis, unspecified; E66.2 Morbid (severe) obesity with alveolar hypoventilation; I48.92 Unspecified atrial flutter; N18.3 Chronic kidney disease, stage 3 (moderate); I95.9 Hypotension, unspecified; L08.9 Local infection of the skin and subcutaneous tissue, unspecified; B95.62 Methicillin resistant Staphylococcus aureus infection as the cause of diseases classified elsewhere; I48.91 Unspecified atrial fibrillation; F41.9 Anxiety disorder, unspecified; R00.0 Tachycardia, unspecified; E88.09 Other disorders of plasma-protein metabolism, not elsewhere classified; D75.1 Secondary polycythemia; R23.0 Cyanosis; Z91.19 Patient's noncompliance with other medical treatment and regimen; D53.9 Nutritional anemia, unspecified; K76.0 Fatty (change of) liver, not elsewhere classified; K72.90 Hepatic failure, unspecified without coma; Z87.891 Personal history of nicotine dependence
CPT/HCPCS: 36415; 70450; 71045; 71046; 76700; 76770; 80048; 80053; 80061; 80076; 80202; 81001; 81003; 82024; 82043; 82088; 82140; 82533; 82550; 82553; 82570; 82607; 82746; 82805; 82962; 83735; 83880; 84100; 84132; 84145; 84244; 84300; 84439; 84443; 84484; 84550; 85025; 85610; 85730; 86317; 86704; 87040; 87070; 87075; 87077; 87086; 87088; 87186; 87205; 87340; 87493; 87804; 92960; 93005; 93306; 93925; 93970; 93971; 94640; 94660; 94760; 96374; 96375; 97162; 97164; 99285; J0834; J1644; J1650; J1940; J2150; J2250; J3590; P9047

== ENCOUNTER 2022-04-06 14:11 | Inpatient (IN) | payer BC ==
--- OUTSIDE RECORDS SUMMARY | 2022-04-06 14:15 | XMS REPORT | Continuity of Care Document ---
:1965 Author Organization [facility] t Address [address] [place] [address] Care Team Providers Name Role Phone Amanda SUBRAMANIAN Attending Clinician Unavailable Amanda SUBRAMANIAN Admitting Clinician Unavailable Problems This patient has no known problems. Allergies, Adverse Reactions, Alerts This patient has no known allergies or adverse reactions. Medications This patient has no known medications. Procedures This patient has no known procedures. Encounters Start End Encounter Admission Attending Care Care Encounter Source Date/Time Date/Time Type Type Clinicians Facility Department ID 2019-04-02 2019-04-02 Outpatient C MORIS Radha RAD [id number] [address] 08:31:00 23:59:00 [facility] Results Test Description Test Time Test Comments Results Result [facility] e Comments MRI LOW EXT NON 2019-04-02 Exam: MRI of the right JOINT W/O CONT 11:39:49 forefoot without contrastHistory: Pain and swelling with wound debridement second toeLocation: [id number]: High-resolution multiplanar multiecho imaging of the right forefootwas performed without contrast.Findings:There is dorsal soft tissue edema in the area of interest dorsally at the levelof the second mid and distal phalanges. The marrow signal within the osseousstructures is preserved without erosions or osteomyelitis. No focal fluidcollection or abscess.Moderate hammertoe deformity seen involving the fourth digit with mildhammertoe deformity involving the third digit.Mild diffuse arthrosis is seen throughout the mid and forefoot without osseouserosions. Subchondral cystic changes in the first metatarsal head.Flexor and extensor tendons are intact.The Lisfranc joints and Lisfranc ligament are intact.Impression:Recen t wound debridement over the dorsal aspect of the second toe with softtissue edema but without evidence of abscess or osteomyelitis. Please seeabove.
[2022-04-06 15:57] LABS: Absolute Lymphocytes (CBC) 1.2 K/uL (0.7-4.9); Hematocrit 47.5 % (36.0-45.0); Lymphocytes % 15.5 % (15.3-44.8); MPV 7.1 fL (7.6-11.3); RBC Red Blood Cell Count 4.89 M/uL (3.86-4.86)
--- NOTE | 2022-04-06 16:06 | RAD REPORT ---
EXAM DESCRIPTION: RAD - Chest Single View - 04/06/2022 4:00 pm CLINICAL HISTORY: DYSPNEA Chest pain. COMPARISON: Chest Single View dated 03/06/2019; Chest Single View dated 03/02/2019; Chest Single View dated 03/01/2019; Chest Pa And Lat (2 Views) dated 02/25/2019; Chest Single View dated 02/24/2019 FINDINGS: Portable technique limits examination quality. The lungs are grossly clear. The heart is moderately enlarged in size. No displaced fractures.
[2022-04-06 16:17] LABS: Albumin 3.6 g/dL (3.4-5.0); Bilirubin Direct 1.4 mg/dL (0-0.2); Bilirubin Total 2.8 mg/dL (0.2-1.0); Magnesium 1.5 mg/dL (1.8-2.4); Potassium 3.4 mmol/L (3.5-5.1); Protein, Total 7.6 g/dL (6.4-8.2); Troponin High Sensitivity 27.9 pg/mL (<58.9)
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
--- NOTE | 2022-04-06 16:31 | EDPHYS ---
Physician Documentation [facility] Name: Melissa Ghotra Age: 56 yrs Sex: Female : 1965 Arrival Date: 04/06/2022 Time: 14:21 Bed 14 Private MD: ED Physician Max Foster HPI: 04/06 15:36 This 56 yrs old Female presents to ER via Wheelchair with complaints of Swelling of jr8 Lower Extremity. 15:36 Onset: The symptoms/episode began/occurred gradually. Modifying factors: The symptoms jr8 are alleviated by nothing. Associated signs and symptoms: The patient has no apparent associated signs or symptoms. Severity of symptoms: At their worst the symptoms were moderate, in the emergency department the symptoms are unchanged. The patient has experienced similar episodes in the past, a few times. The patient has not recently seen a physician. Patient stated that ever since she was admitted to the ICU for severe sepsis, patient has been battling with lower extremity edema. Patient stated that she is currently on furosemide and spironolactone. Over the past month has had gradual increase in lower extremity edema is now become significant and up to the abdominal region. Patient stated that she has been compliant with her meds but that is not helping at this time. Patient presented to the emergency room today because now the swelling has become painful and is having mild shortness of breath. Historical: - Allergies: 14:34 No Known Allergies; iw - Home Meds: 14:34 furosemide 20 mg Oral tab 1 tab once daily [Active]; amiodarone 200 mg Oral tab 1 tab iw once daily [Active]; spironolactone 25 mg Oral tab 1 tab 2 times per day [Active]; potassium chloride 20 mEq oral TbER once daily [Active]; metolazone 2.5 mg oral tab 1 tab once daily [Active]; midodrine 10 mg oral tab 1 tab 3 times per day [Active]; - Immunization history:: Client reports having NOT received the Covid vaccine. - Social history:: Smoking status: Patient denies any tobacco usage or history of. ROS: 15:36 Eyes: Negative for injury, pain, redness, and discharge, ENT: Negative for injury, jr8 pain, and discharge, Neck: Negative for injury, pain, and swelling, Abdomen/GI: Negative for abdominal pain, nausea, vomiting, diarrhea, and constipation, Back: Negative for injury and pain, MS/Extremity: Negative for injury and deformity, Skin: Negative for injury, rash, and discoloration, Neuro: Negative for headache, weakness, numbness, tingling, and seizure. 15:36 Cardiovascular: Positive for edema. 15:36 Respiratory: Positive for dyspnea on exertion, shortness of breath. Exam: 15:36 Constitutional: This is a well developed, well nourished patient who is awake, alert, jr8 and in no acute distress. Abdomen/GI: Soft, non-tender, with normal bowel sounds. No distension or tympany. No guarding or rebound. No evidence of tenderness throughout. Back: No spinal tenderness. No costovertebral tenderness. Full range of motion. Skin: Warm, dry with normal turgor. Normal color with no rashes, no lesions, and no evidence of cellulitis. MS/ Extremity: Pulses equal, no cyanosis. Neurovascular intact. Full, normal range of motion. Neuro: Awake and alert, GCS 15, oriented to person, place, time, and situation. Cranial nerves II-XII grossly intact. Motor strength 5/5 in all extremities. Sensory grossly intact. 15:36 Cardiovascular: Rate: normal, Rhythm: regular, Pulses: Pulses are 2+ in right radial artery and left radial artery. Heart sounds: normal, normal S1and S2, no S3 or S4, no murmur, no rub, no gallop, Edema: 3+ edema to level of waist, pubic area, left upper thigh, left lower thigh, left knee, left midcalf, left ankle, left foot, right upper thigh, right lower thigh, right knee, right midcalf, right ankle and right foot. 16:33 ECG was reviewed by the Attending Physician. [facility] Vital Signs: 14:32 BP 121 / 81; Pulse 83; Resp 20 S; Temp 97.2; Pulse Ox 92% on R/A; iw 16:07 BP 101 / 72; Pulse 73; Resp 17; Pulse Ox 95% on R/A; tw2 17:34 BP 107 / 43; Pulse 79; Resp 19; Pulse Ox 97% on 3 lpm NC; tw2 18:22 BP 97 / 70; Pulse 71; Resp 17; Pulse Ox 95% 3 lpm ; tw2 20:03 BP 111 / 82; Pulse 72; Resp 18; Temp 97.2; Pulse Ox 97% on 2 lpm NC; Pain 0/10; jose 22:17 BP 127 / 72; Pulse 77; Resp 20; Temp 97.2; Pulse Ox 98% on 2 lpm NC; Weight 154.54 kg; jose Height 5 ft. 4 in. (162.56 cm); Pain 0/10; 22:17 Body Mass Index 58.48 (154.54 kg, 162.56 cm) jose MDM: 14:42 Patient medically screened. [facility] 16:28 Data reviewed: vital signs, nurses notes, lab test result(s), EKG, radiologic studies, jr8 plain films. Data interpreted: Pulse oximetry: on room air is 90 %. Interpretation: hypoxia. Counseling: I had a detailed discussion with the patient and/or guardian regarding: the historical points, exam findings, and any diagnostic results supporting the discharge/admit diagnosis, lab results, radiology results, the need for further work-up and treatment in the hospital. 16:29 ED course: Patient continues to have fluctuating pulse oximetry desaturations with good jr8 waveform. We will put her on oxygen. Patient with anasarca and will need a couple days of diuresis with close monitoring as patient already has low blood pressure history. Will admit to medicine at this time.. 04/06 14:42 Order name: Basic Metabolic Panel; Complete Time: 16:18 [facility] 04/06 14:42 Order name: CBC with Diff; Complete Time: 16:05 [facility] 04/06 14:42 Order name: LFT's; Complete Time: 16:18 [facility] 04/06 14:42 Order name: Magnesium; Complete Time: 16:18 [facility] 04/06 14:42 Order name: NT PRO-BNP; Complete Time: 16:18 [facility] 04/06 14:42 Order name: Troponin HS; Complete Time: 16:18 [facility] 04/06 14:42 Order name: XRAY Chest (1 view); Complete Time: 16:08 [facility] 04/06 17:17 Order name: COVID-19 SARS RT PCR (Document "Date of Onset" if Symptomatic) bd 04/06 18:48 Order name: CT; Complete Time: 19:02 [facility] 04/06 19:58 Order name: SARS-COV-2 RT PCR; Complete Time: 20:07 [facility] 04/07 03:10 Order name: CBC with Automated Diff; Complete Time: 19:16 [facility] 04/07 03:46 Order name: Basic Metabolic Panel; Complete Time: 19:16 [facility] 04/07 03:46 Order name: NT PRO-BNP; Complete Time: 19:16 [facility] 04/07 03:46 Order name: Magnesium; Complete Time: 19:16 [facility] 04/06 14:42 Order name: EKG; Complete Time: 14:43 [facility] 04/06 14:42 Order name: Cardiac monitoring; Complete Time: 16: [facility] 04/06 14:42 Order name: EKG - Nurse/Tech; Complete Time: 16:41 [facility] 04/06 14:42 Order name: IV Saline Lock; Complete Time: 16: [facility] 04/06 14:42 Order name: Labs collected and sent; Complete Time: 16: [facility] 04/06 14:42 Order name: O2 Per Protocol; Complete Time: 16: [facility] 04/06 14:42 Order name: O2 Sat Monitoring; Complete Time: 16: [facility] 04/06 16:25 Order name: Morejon; Complete Time: 17:08 [facility] 04/06 16:29 Order name: Oxygen; Complete Time: 16:37 jr8 EC:33 Rate is 75 beats/min. Rhythm is regular, 1st Degree Block. Right axis deviation noted. jr8 [place] interval is prolonged at 226 msec. QRS interval is prolonged at 148 msec. QT interval is prolonged. No Q waves. T waves are Inverted in leads V3, V4. No ST changes noted. Clinical impression: 1st degree heart block. Interpreted by me. Reviewed by me. Administered Medications: 17:05 Drug: Lasix (furosemide) 40 mg Route: IVP; Site: left forearm; tw2 18:31 Follow up: Response: No adverse reaction tw2 17:15 Drug: Magnesium Sulfate 2 grams Route: IVPB; Infused Over: 2 hrs; Site: left forearm; tw2 17:25 Drug: Potassium Chloride 20 mEq Route: PO; tw2 18:31 Follow up: Response: No adverse reaction tw2 Disposition: 04/08 07:00 Co-signature as Attending Physician, Max Foster MD. rn Disposition Summary: 04/06/22 16:30 Hospitalization Ordered Hospitalization Status: Inpatient Admission jr8 Condition: Stable jr8 Problem: new jr8 Symptoms: are unchanged jr8 Bed/Room Type: Standard jr8 Provider: Octavia Mesa(04/06/22 16:35) jr8 Location: Telemetry/MedSurg (Inpatient)(04/07/22 07:16) iw Room Assignment: 209(04/07/22 07:16) iw Diagnosis - Anasarca jr8 - Hypomagnesemia jr8 - Respiratory failure, unspecified with hypoxia jr8 - Heart failure, unspecified jr8 Forms: - Medication Reconciliation Form jr8 - SBAR form jr8 Signatures: Dispatcher [employer] [place] Shaw RN RN iw Max Foster MD MD rn Roszak, Josh, PA PA jr8 Jade Llanos RN RN Trish Palmer RN RN 2 Karen Serrano RN TONYA jose Corrections: (The following items were deleted from the chart) 04/06 16:35 16:30 Rivera Foster jr8 jr8 20:04 16:30 Telemetry/MedSurg (Inpatient) jr8 cg 20:04 16:30 jr8 cg 04/07 07:16 04/06 20:04 [facility] ER HOLD cg iw 04/07 07:16 04/06 20:04 ERHOLD- cg
[2022-04-06] MEDS ORDERED: HYDRALAZINE HCL 20 MG/ML VIAL IV PRN (16:42)
[2022-04-06] MEDS ORDERED: ALBUTEROL 2.5 MG/3 ML NEB SOL NEB PRN (16:44)
[2022-04-06] MEDS ORDERED: IPRATROPIUM BROM 0.5MG/2.5ML NEB PRN (16:44)
[2022-04-06] MEDS ORDERED: ACETAMINOPHEN 500 MG TAB PO PRN (16:44)
[2022-04-06] MEDS ORDERED: ONDANSETRON 4 MG/2 ML VIAL IV PRN (16:44)
[2022-04-06] MEDS ORDERED: Magnesium Sulfate 2gm IVPB 2 G/50 ML BAG IV ONE (16:50)
--- NOTE | 2022-04-06 16:54 | P.HP ---
Certification for Inpatient Patient admitted to: Inpatient With expected LOS: >2 Midnights Patient will require the following post-hospital care: None Practitioner: I am a practitioner with admitting privileges, knowledge of patient current condition, hospital course, and medical plan of care. Services: Services provided to patient in accordance with Admission requirements found in Title 42 Section 412.3 of the Code of Federal Regulations Patient History Date of Service: 04/06/22 Reason for admission: Generalized swelling History of Present Illness: Patient is a 56-year-old female with a past medical history significant for morbid obesity, atrial flutter, CHF, hypotension who presents with complaint of generalized swelling that has been ongoing for the past 1 month. Patient reported that she has been compliant with her home diuretic medications. Patient reports associated signs and symptoms of shortness of breath. Patient reported that symptoms are aggravated or relieved by nothing. Patient denies any other signs or symptoms. Patient decided to present to the hospital due to worsening symptoms. Allergies No Known Allergies Allergy (Verified 02/24/19 20:50) Home medications list reviewed: Yes Home Medications: Apixaban [Eliquis] 5 mg PO BID tablet 03/11/19 Benzonatate [Tessalon Perle*] 100 mg PO TID PRN cap 03/11/19 Calcitrol [Rocaltrol*] 0.5 mcg PO DAILY cap 03/11/19 Cholecalciferol (Vitamin D3) [Vitamin D 5,000 IU Cap*] 5,000 unit PO DAILY cap 03/11/19 Collagenase [Santyl Ointment*] 1 appl TOP DAILY tube 03/11/19 Furosemide [Lasix 40 MG INJ*] 40 mg IV Q6HR vial 03/11/19 Levalbuterol [Xopenex*] 1.25 mg NEB [id number] vial 03/11/19 Midodrine HCl [Proamatine*] 10 mg PO TID tab 03/11/19 Mupirocin Oint [Bactroban 2% Ointment*] 1 appl TOP BID tube 03/11/19 Nystatin Powder [Mycostatin (Powder)*] 1 appl TOP BID btl 03/11/19 - Past Medical/Surgical History Diabetic: No -: morbid obesity -: lower extremity cellulitis -: kidney issues due to sepsis last 2018 -: hand surgeries - Family History Mother -: Hypertension, Cancer Father -: Cancer - Social History Smoking Status: Never smoker Alcohol use: No CD- Drugs: No Caffeine use: No Place of Residence: Home Review of Systems General: Unremarkable Eyes: Unremarkable ENT: Unremarkable Respiratory: Shortness of Breath, SOB with Excertion Cardiovascular: Unremarkable Gastrointestinal: Unremarkable Genitourinary: Unremarkable Musculoskeletal: Pedal edema, Other (Generalized swelling) Integumentary: Unremarkable Neurological: Unremarkable Physical Examination - Physical Exam General: Alert, Oriented x3, Cooperative, Mild distress HEENT: Normocephalic, PERRLA Neck: Supple, 2+ carotid pulse no bruit, JVD not distended Respiratory: Diminished Cardiovascular: Normal pulses, Regular rate/rhythm, Edema Capillary refill: <2 Seconds Gastrointestinal: Normal bowel sounds, Distended Musculoskeletal: No clubbing, No erythema, Swelling Integumentary: Skin breakdown Neurological: Normal speech, Normal tone, Normal affect Lymphatics: No axilla or inguinal lymphadenopathy - Studies Laboratory Data (last 24 hrs) 04/06/22 15:45: WBC 7.4, Hgb 15.7 H, Hct 47.5 H, Plt Count 168 04/06/22 15:45: Sodium 137, Potassium 3.4 L, BUN 29 H, Creatinine 1.55 H, Glucose 96, Magnesium 1.5 L D, Total Bilirubin 2.8 H, AST 18, ALT 34, Alkaline Phosphatase 63 Assessment and Plan - Plan --Acute on chronic diastolic CHF exacerbation. Continue diuresis with Lasix. Daily weight and strict I/O. Echocardiogram pending. Cardiology consulted. Will await further recommendations from tax compliance agent. --Acute respiratory failure with hypoxia. Likely secondary to CHF exacerbation. Continue O2 therapy at 2 L/min. Neb treatment with albuterol and Atrovent as needed. CT chest pending for further evaluation.. Continue supportive care --Hypotension. Continue midodrine. --Hypomagnesemia. Replete as needed. --Hypokalemia. Replete as needed. --Super obesity. BMI greater than 50. Patient counseled on weight reduction, diet and exercise therapy. --CKD 3B. Baseline functions unknown. We will continue to monitor renal functions. --History of atrial flutter. Continue Eliquis. --DVT prophylaxis with Eliquis. Discharge Plan: Home Plan to discharge in: Greater than 2 days - Advance Directives Does patient have a Living Will: No Does patient have a Durable POA for Healthcare: No - Code Status/Comfort Care Code Status Assessed: Yes Code Status: Full Code Physician Review: Patient Assessed, Agree with Above Assessment and Plan Critical Care: No
[2022-04-06] MEDS: FUROSEMIDE 40 MG/4 ML VIAL IV SCH (17:00)
[2022-04-06] MEDS ORDERED: HEPARIN 5000 UNIT/ML 1 ML VIAL SQ SCH (17:00)
[2022-04-06] MEDS ORDERED: POTASSIUM CL SA 10 MEQ TAB PO ONE (17:26)
--- NOTE | 2022-04-06 18:47 | RAD REPORT ---
EXAM DESCRIPTION: CT - Thorax Wo Con CLINICAL HISTORY: Chest pain Need only CT chest without Contrast COMPARISON: Chest Single View dated 04/06/2022 FINDINGS: The lungs are clear. No pleural thickening or pleural effusion. No pneumothorax. Pulmonary arterial tree appears prominent which may indicate underlying pulmonary arterial hypertension. No axillary, mediastinal or hilar adenopathy. No concerning bony finding. No gross upper abdominal finding. All CT scans are performed using dose optimization technique as appropriate and may include automated exposure control or mA/KV adjustment according to patient size. IMPRESSION: No acute intrathoracic abnormality. Suspected underlying pulmonary arterial hypertension.
[2022-04-06] MEDS: LEVALBUTEROL 1.25 MG/3 ML NEB NEB SCH (20:00)
[2022-04-06] MEDS ORDERED: LEVALBUTEROL 1.25 MG/3 ML NEB ONE (20:02)
[2022-04-06] MEDS: NYSTATIN PWDR 100000 UNIT/GM TOP SCH (21:00)
[2022-04-06] MEDS: MUPIROCIN 2% OINT 22GM TUBE TOP SCH (21:00)
[2022-04-06] MEDS: MIDODRINE HCL 5 MG TABLET PO SCH (21:00)
[2022-04-06] MEDS: APIXABAN 5 MG TABLET PO SCH (21:00)
[2022-04-06] MEDS ORDERED: APIXABAN 5 MG TABLET ONE (21:08)
[2022-04-06] MEDS ORDERED: MUPIROCIN 2% OINT 22GM TUBE TOP ONE (21:09)
[2022-04-07] MEDS ORDERED: LEVALBUTEROL 1.25 MG/3 ML NEB ONE (01:15)
[2022-04-07] MEDS: LEVALBUTEROL 1.25 MG/3 ML NEB NEB SCH ×4 (01:20→20:00)
[2022-04-07 03:08] LABS: Absolute Lymphocytes (CBC) 1.5 K/uL (0.7-4.9); Hematocrit 49.2 % (36.0-45.0); Lymphocytes % 17.6 % (15.3-44.8); MPV 7.6 fL (7.6-11.3); RBC Red Blood Cell Count 4.96 M/uL (3.86-4.86)
[2022-04-07 03:45] LABS: Potassium 3.6 mmol/L (3.5-5.1)
[2022-04-07 03:46] LABS: Magnesium 1.7 mg/dL (1.8-2.4)
[2022-04-07] MEDS ORDERED: MAGNESIUM SULFATE 1 gm IVPB 1 GM/100 ML BAG IV ONE (06:11)
[2022-04-07] MEDS ORDERED: POTASSIUM CL SA 10 MEQ TAB PO ONE (06:11)
--- NOTE | 2022-04-07 07:54 | EKG ---
Test Date: 2022-04-06 Test Time: 16:24:11 Drawing Checker: THOMAS MEASUREMENT RESULTS: Intervals: Rate: 75 [place]: 226 QRSD: 148 QT: 484 QTc: 540 [place]: P: 59 [place]: 226 QRS: 130 T: -4 INTERPRETIVE STATEMENTS: Sinus rhythm with 1st degree AV block Right bundle branch block Left posterior fascicular block Bifascicular block Cannot rule out Inferior infarct, age undetermined Abnormal ECG Compared to ECG 03/07/2019 08:09:00 First degree AV block now present Right bundle-branch block now present Left posterior fascicular block now present Bifascicular block now present Myocardial infarct finding now present Right-axis deviation no longer present Right ventricular hypertrophy no longer present Electronically Signed On 04-07-22 07:52:06 CDT by Reggie Pedraza
--- NOTE | 2022-04-07 08:23 | P.PN ---
Subjective Date of Service: 04/07/22 Chief Complaint: Generalized swelling Subjective: No new changes (Still on supplemental O2 States leg swelling improving) Physical Examination - Vital Signs Temperature: 97.1 F Blood Pressure: 102/68 Pulse: 77 Respirations: 18 Pulse Ox (%): 98 - Physical Exam General: Alert, In no apparent distress, Oriented x3, Obese HEENT: Atraumatic, Normocephalic Neck: 2+ carotid pulse no bruit Respiratory: Diminished, Crackles/rales Cardiovascular: Normal pulses, Regular rate/rhythm, Normal S1 S2 Capillary refill: <2 Seconds Gastrointestinal: Normal bowel sounds, Soft and benign, Non-distended Musculoskeletal: Swelling Neurological: Normal speech, Normal strength at 5/5 x4 extr, Sensation intact, Cranial nerves 3-12 intact - Studies Laboratory Data (last 24 hrs) 04/06/22 15:45: WBC 7.4, Hgb 15.7 H, Hct 47.5 H, Plt Count 168 04/06/22 15:45: Sodium 137, Potassium 3.4 L, BUN 29 H, Creatinine 1.55 H, Glucose 96, Magnesium 1.5 L D, Total Bilirubin 2.8 H, AST 18, ALT 34, Alkaline Phosphatase 63 Assessment And Plan Physician Review: Patient Assessed, Agree with Above Assessment and Plan Physician Review Additional Text: Impression Acute diastolic CHF exacerbationpresumedwith anasarca History of atrial flutter Hypertension Morbid obesity Hypomagnesemia/hypokalemia Chronic hypotension Plan Volume status improving, patient diuresing well s/p negative -3.8 L overnight Continue IV Lasix diuresis Continue increase midodrine to continue to optimize blood pressure Follow pending echocardiogram Present of persistent hypotension worrisome for systolic CHF Cardiology consult appreciated Started on Eliquis, continue for now Wean off O2 as tolerated s/p counseled on weight reduction, diet and exercise therapy
[2022-04-07] MEDS: VITAMIN D 5,000 UNIT CAP PO SCH (09:23)
[2022-04-07] MEDS: FUROSEMIDE 40 MG/4 ML VIAL IV SCH ×2 (09:23→17:15)
[2022-04-07] MEDS: APIXABAN 5 MG TABLET PO SCH ×2 (09:23→21:52)
[2022-04-07] MEDS: MUPIROCIN 2% OINT 22GM TUBE TOP SCH ×2 (09:24→21:00)
[2022-04-07] MEDS: ASPIRIN 81 MG CHEWABLE TABLET PO SCH (09:24)
[2022-04-07] MEDS: CALCITROL 0.25 MCG CAP PO SCH (09:24)
[2022-04-07] MEDS: NYSTATIN PWDR 100000 UNIT/GM TOP SCH ×2 (09:24→21:52)
[2022-04-07] MEDS: MIDODRINE HCL 5 MG TABLET PO SCH ×3 (09:24→21:52)
[2022-04-07] MEDS: COLLAGENASE 30 GM OINTMENT TOP SCH (09:25)
[2022-04-07] MEDS ORDERED: ALBUTEROL 2.5 MG/3 ML NEB SOL NEB PRN (11:00)
[2022-04-07 23:55] LABS: Urine Appearance Clear (Clear); Urine Bilirubin Negative (Negative); Urine Blood 2+ (Negative); Urine Color Yellow (Yellow); Urine Glucose Negative (Negative); Urine Protein Negative (Negative); Urine pH 5.5 (5.0-7.0)
[2022-04-07 23:58] LABS: Urine Microscopic Reflex ORDER UMIC
[2022-04-08 00:01] LABS: Urine RBC 20-50 /HPF (NONE SEEN)
[2022-04-08 00:02] LABS: Urine Bacteria >50 /HPF (<20); Urine Mucus 1+ /HPF (NONE SEEN)
[2022-04-08] MEDS: LEVALBUTEROL 1.25 MG/3 ML NEB NEB SCH ×4 (01:38→20:00)
[2022-04-08 05:36] VITALS: BMI 56.0
[2022-04-08 06:54] LABS: Albumin 3.3 g/dL (3.4-5.0); Bilirubin Total 2.9 mg/dL (0.2-1.0); Potassium 3.3 mmol/L (3.5-5.1); Protein, Total 7.3 g/dL (6.4-8.2)
[2022-04-08] MEDS ORDERED: POTASSIUM CL SA 10 MEQ TAB PO ONE ×2 (09:00→21:00)
[2022-04-08] MEDS ORDERED: MAGNESIUM SULFATE 1 gm IVPB 1 GM/100 ML BAG IV ONE (09:00)
[2022-04-08] MEDS: FUROSEMIDE 40 MG/4 ML VIAL IV SCH (09:07)
[2022-04-08] MEDS: VITAMIN D 5,000 UNIT CAP PO SCH (09:07)
[2022-04-08] MEDS: CALCITROL 0.25 MCG CAP PO SCH (09:07)
[2022-04-08] MEDS: ASPIRIN 81 MG CHEWABLE TABLET PO SCH (09:07)
[2022-04-08] MEDS: APIXABAN 5 MG TABLET PO SCH ×2 (09:07→20:54)
[2022-04-08] MEDS: MIDODRINE HCL 5 MG TABLET PO SCH ×3 (09:07→20:54)
[2022-04-08] MEDS: COLLAGENASE 30 GM OINTMENT TOP SCH (09:09)
[2022-04-08] MEDS: NYSTATIN PWDR 100000 UNIT/GM TOP SCH ×2 (09:09→20:55)
[2022-04-08] MEDS: MUPIROCIN 2% OINT 22GM TUBE TOP SCH ×2 (09:09→20:57)
--- NOTE | 2022-04-08 15:11 | P.PN ---
Subjective Date of Service: 04/08/22 Chief Complaint: Generalized swelling Subjective: Improving (Improving generalized body swelling, weaned off O2 Patient worried about still persistent lower extremity edema) Physical Examination - Vital Signs Temperature: 97.2 F Blood Pressure: 99/57 Pulse: 76 Respirations: 16 Pulse Ox (%): 91 Assessment And Plan Physician Review: Patient Assessed, Agree with Above Assessment and Plan Physician Review Additional Text: Physical Exam General: Alert, In no apparent distress, Oriented x3, Obese HEENT: Atraumatic, Normocephalic Neck: 2+ carotid pulse no bruit Respiratory: Diminished, Crackles/rales Cardiovascular: Normal pulses, Regular rate/rhythm, Normal S1 S2 Capillary refill: <2 Seconds Gastrointestinal: Normal bowel sounds, Soft and benign, Non-distended Musculoskeletal: Improving to 1+ bilateral pedal edema Neurological: Normal speech, Normal strength at 5/5 x4 extr, Sensation intact, Cranial nerves 3-12 intact Impression Acute diastolic CHF exacerbationpresumedwith anasarca History of atrial flutter Chronic hypotension Morbid obesity Hypomagnesemia/hypokalemia Chronic hypotension Acute acute kidney injury on CKD Plan We will replete magnesium and potassium today Diuresing very well, continue Lasix twice daily Weight loss of 14 pounds since last 48 hours We will reduce Lasix to avoid overdiuresis and rapid worsening of renal function Continue to optimize blood pressure continue high-dose midodrine Follow pending echocardiogram Present of persistent hypotension worrisome for systolic CHF Cardiology consult appreciated Started on Eliquis, continue for now Wean off O2 as tolerated s/p counseled on weight reduction, diet and exercise therapy
[2022-04-09] MEDS: LEVALBUTEROL 1.25 MG/3 ML NEB NEB SCH ×4 (02:00→20:00)
[2022-04-09 05:05] LABS: Albumin 3.3 g/dL (3.4-5.0); Bilirubin Total 3.1 mg/dL (0.2-1.0); Potassium 3.7 mmol/L (3.5-5.1); Protein, Total 7.3 g/dL (6.4-8.2)
[2022-04-09] MEDS ORDERED: POTASSIUM CL SA 10 MEQ TAB PO ONE (09:00)
[2022-04-09] MEDS ORDERED: FUROSEMIDE 40 MG/4 ML VIAL IV SCH (09:00)
[2022-04-09] MEDS: COLLAGENASE 30 GM OINTMENT TOP SCH (10:12)
[2022-04-09] MEDS: MUPIROCIN 2% OINT 22GM TUBE TOP SCH ×2 (10:13→20:56)
[2022-04-09] MEDS: CALCITROL 0.25 MCG CAP PO SCH (10:13)
[2022-04-09] MEDS: NYSTATIN PWDR 100000 UNIT/GM TOP SCH ×2 (10:13→20:56)
[2022-04-09] MEDS: MIDODRINE HCL 5 MG TABLET PO SCH ×3 (10:14→20:55)
[2022-04-09] MEDS: ASPIRIN 81 MG CHEWABLE TABLET PO SCH (10:14)
[2022-04-09] MEDS: APIXABAN 5 MG TABLET PO SCH ×2 (10:14→20:55)
[2022-04-09] MEDS: VITAMIN D 5,000 UNIT CAP PO SCH (10:14)
--- NOTE | 2022-04-09 12:50 | P.PN ---
Subjective Date of Service: 04/09/22 Chief Complaint: Generalized swelling Subjective: No new changes, No C/O voiced Physical Examination - Vital Signs Temperature: 96.6 F Blood Pressure: 90/56 Pulse: 80 Respirations: 18 Pulse Ox (%): 91 Assessment And Plan Physician Review: Patient Assessed, Agree with Above Assessment and Plan Physician Review Additional Text: Physical Exam General: Alert, In no apparent distress, Oriented x3, Obese HEENT: Atraumatic, Normocephalic Neck: 2+ carotid pulse no bruit Respiratory: Diminished, Crackles/rales Cardiovascular: Normal pulses, Regular rate/rhythm, Normal S1 S2 Capillary refill: <2 Seconds Gastrointestinal: Normal bowel sounds, Soft and benign, Non-distended Musculoskeletal: Improving to 1+ bilateral pedal edema Neurological: Normal speech, Normal strength at 5/5 x4 extr, Sensation intact, Cranial nerves 3-12 intact Impression Acute diastolic CHF exacerbationpresumedwith anasarca History of atrial flutter Chronic hypotension Morbid obesity Hypomagnesemia/hypokalemia Chronic hypotension Acute acute kidney injury on CKD Plan Follow pending echocardiogram to assess EF and wall abnormality Still slow diuresis, switch IV Lasix to Bumex/metolazone overall today See losing weight, 20 pounds since admission, continue diuretics Continue to optimize blood pressure, continue high-dose midodrine Present of persistent hypotension worrisome for systolic CHF Cardiology consult appreciated Started on Eliquis, continue for now Weaned off O2 as tolerated s/p counseled on weight reduction, diet and exercise therapy
[2022-04-09] MEDS: BUMETANIDE 1 MG TABLET PO SCH ×2 (14:47→20:54)
[2022-04-09] MEDS: BENZONATATE 100 MG CAP PO PRN ×2 (14:47→23:53)
[2022-04-09] MEDS: METOLAZONE 5 MG TABLET PO SCH (14:48)
[2022-04-09 15:57] LABS: UR PROTEIN 66.4 mg/dL (<11.9); Urine Protein/Creatinine Ratio 0.48 ratio (<0.15)
--- NOTE | 2022-04-09 16:35 | RAD REPORT ---
EXAM DESCRIPTION: US - Renal Ultrasound-Complete - 04/09/2022 4:13 pm CLINICAL HISTORY: Acute renal failure COMPARISON: 2019 FINDINGS: Poor evaluation of the kidneys secondary to body habitus. No gross abnormality of bladder IMPRESSION: Poor evaluation of the kidneys secondary to body habitus. No gross abnormality of bladder .
--- NOTE | 2022-04-09 16:37 | RAD REPORT ---
EXAM DESCRIPTION: USExtremity Venous Uni Ltd04/09/2022 4:14 pm CLINICAL HISTORY: Right leg swelling. COMPARISON: None. FINDINGS: Right common femoral, popliteal and right posterior tibial veins are compressible and demo nstrate augmentation. Doppler demonstrates good flow. Limited evaluation of portions of the mid right superficial femoral vein secondary to overlying taped . Otherwise superficial vein unremarkable Grayscale, color and spectral analysis performed on all vessels IMPRESSION: No evidence of deep venous thrombosis involving the right lower extremity.
[2022-04-10] MEDS: LEVALBUTEROL 1.25 MG/3 ML NEB NEB SCH ×4 (02:00→20:00)
[2022-04-10 04:53] LABS: Albumin 3.3 g/dL (3.4-5.0); Bilirubin Total 2.7 mg/dL (0.2-1.0); Potassium 3.5 mmol/L (3.5-5.1); Protein, Total 7.2 g/dL (6.4-8.2)
--- NOTE | 2022-04-10 07:43 | P.CNS ---
Date of Consult: 04/10/22 Reason for Consult: BRANDON/ CKD Requesting Physician: Octavia Mesa Chief Complaint: Generalized swelling History of Present Illness: Patient is a 56-year-old female with a past medical history significant for morbid obesity, atrial flutter, CHF, hypotension who presents with complaint of generalized swelling that has been ongoing for the past 1 month. Patient reported that she has been compliant with her home diuretic medications. Patient reports associated signs and symptoms of shortness of breath. Patient reported that symptoms are aggravated or relieved by nothing. Patient denies any other signs or symptoms. Patient decided to present to the hospital due to worsening symptoms. 15:36 This 56 yrs old Female presents to ER via Wheelchair with complaints of Swelling of jr8 Lower Extremity. 15:36 Onset: The symptoms/episode began/occurred gradually. Modifying factors: The symptoms jr8 are alleviated by nothing. Associated signs and symptoms: The patient has no apparent associated signs or symptoms. Severity of symptoms: At their worst the symptoms were moderate, in the emergency department the symptoms are unchanged. The patient has experienced similar episodes in the past, a few times. The patient has not recently seen a physician. Patient stated that ever since she was admitted to the ICU for severe sepsis, patient has been battling with lower extremity edema. Patient stated that she is currently on furosemide and spironolactone. Over the past month has had gradual increase in lower extremity edema is now become significant and up to the abdominal region. Patient stated that she has been compliant with her meds but that is not helping at this time. Patient presented to the emergency room today because now the swelling has become painful and is having mild shortness of breath Allergies No Known Allergies Allergy (Verified 02/24/19 20:50) Home medications list reviewed: Yes Home Medications: Apixaban [Eliquis] 5 mg PO BID tablet 03/11/19 Benzonatate [Tessalon Perle*] 100 mg PO TID PRN cap 03/11/19 Calcitrol [Rocaltrol*] 0.5 mcg PO DAILY cap 03/11/19 Cholecalciferol (Vitamin D3) [Vitamin D 5,000 IU Cap*] 5,000 unit PO DAILY cap 03/11/19 Collagenase [Santyl Ointment*] 1 appl TOP DAILY tube 03/11/19 Furosemide [Lasix 40 MG INJ*] 40 mg IV Q6HR vial 03/11/19 Levalbuterol [Xopenex*] 1.25 mg NEB [id number] vial 03/11/19 Midodrine HCl [Proamatine*] 10 mg PO TID tab 03/11/19 Mupirocin Oint [Bactroban 2% Ointment*] 1 appl TOP BID tube 03/11/19 Nystatin Powder [Mycostatin (Powder)*] 1 appl TOP BID btl 03/11/19 - Past Medical/Surgical History Diabetic: No -: morbid obesity -: lower extremity cellulitis -: kidney issues due to sepsis last 2018 -: BRANDON/ CKD followed by Dr. Luu -: hand surgeries - Family History Mother Medical History: Hypertension, Cancer Father Medical History: Cancer - Social History Smoking Status: Former smoker Alcohol use: No CD- Drugs: No Caffeine use: Yes Place of Residence: Home Review of Systems 10-point ROS is otherwise unremarkable General: Weakness, Malaise Respiratory: SOB with Excertion Cardiovascular: Edema Physical Examination Temp Pulse Resp BP Pulse Ox 97.7 F 88 16 106/49 L 97 04/10/22 03:53 04/10/22 03:53 04/10/22 03:28 04/10/22 03:53 04/10/22 03:53 General: In no apparent distress, Oriented x3, Cooperative HEENT: Atraumatic Neck: Supple Respiratory: Clear to auscultation bilaterally Cardiovascular: Regular rate/rhythm, Edema Gastrointestinal: Soft and benign, Non-distended, No guarding Musculoskeletal: No clubbing, No contractures Integumentary: No cyanosis Neurological: Normal speech Blood work reviewed in the chart. Imagings Data: EXAM DESCRIPTION: US - Renal Ultrasound-Complete - 04/09/2022 4:13 pm CLINICAL HISTORY: Acute renal failure COMPARISON: 2018 FINDINGS: Poor evaluation of the kidneys secondary to body habitus. No gross abnormality of bladder IMPRESSION: Poor evaluation of the kidneys secondary to body habitus. No gross abnormality of bladder EXAM DESCRIPTION: RAD - Chest Single View - 04/06/2022 4:00 pm CLINICAL HISTORY: DYSPNEA Chest pain. COMPARISON: Chest Single View dated 03/06/2019; Chest Single View dated 03/02/2019; Chest Single View dated 03/01/2019; Chest Pa And Lat (2 Views) dated 02/25/2019; Chest Single View dated 02/24/2019 FINDINGS: Portable technique limits examination quality. The lungs are grossly clear. The heart is moderately enlarged in size. No displaced fractures. EXAM DESCRIPTION: CT - Thorax Wo Con CLINICAL HISTORY: Chest pain Need only CT chest without Contrast COMPARISON: Chest Single View dated 04/06/2022 FINDINGS: The lungs are clear. No pleural thickening or pleural effusion. No pneumothorax. Pulmonary arterial tree appears prominent which may indicate underlying pulmonary arterial hypertension. No axillary, mediastinal or hilar adenopathy. No concerning bony finding. No gross upper abdominal finding. All CT scans are performed using dose optimization technique as appropriate and may include automated exposure control or mA/KV adjustment according to patient size. IMPRESSION: No acute intrathoracic abnormality. Suspected underlying pulmonary arterial hypertension. Conclusions/Impression: BRANDON in the setting of hypotension CKD III with proteinuria -No NSAIDs Hyponatremia -Caution with Metolazone Hypokalemia -Replete potassium -Start Spironolactone 25 BID Hypomagnesemia -Replete prn Chronic hypotension -Continue Midodrine Anasarca/ LE Edema -Continue diuresis as tolerated Mild protein malnutrition -Maintain nutrition Acute E.coli Cystitis -Send repeat UA/ Culture today -Consider abx Thank you kindly for the consultation.
[2022-04-10] MEDS ORDERED: POTASSIUM CL SA 10 MEQ TAB PO ONE (09:00)
[2022-04-10] MEDS: BUMETANIDE 1 MG TABLET PO SCH ×2 (09:46→20:24)
[2022-04-10] MEDS: METOLAZONE 5 MG TABLET PO SCH (09:46)
[2022-04-10] MEDS: VITAMIN D 5,000 UNIT CAP PO SCH (09:46)
[2022-04-10] MEDS: MIDODRINE HCL 5 MG TABLET PO SCH ×3 (09:47→20:25)
[2022-04-10] MEDS: CALCITROL 0.25 MCG CAP PO SCH (09:47)
[2022-04-10] MEDS: ASPIRIN 81 MG CHEWABLE TABLET PO SCH (09:47)
[2022-04-10] MEDS: SPIRONOLACTONE 25 MG TABLET PO SCH ×2 (09:47→20:24)
[2022-04-10] MEDS: COLLAGENASE 30 GM OINTMENT TOP SCH (09:48)
[2022-04-10] MEDS: MUPIROCIN 2% OINT 22GM TUBE TOP SCH ×2 (09:48→20:26)
[2022-04-10] MEDS: APIXABAN 5 MG TABLET PO SCH ×2 (09:48→20:25)
[2022-04-10] MEDS: BENZONATATE 100 MG CAP PO PRN ×2 (09:48→20:27)
[2022-04-10] MEDS: NYSTATIN PWDR 100000 UNIT/GM TOP SCH ×2 (09:49→20:26)
[2022-04-10] MEDS: levoFLOXacin 250 MG TAB PO SCH (12:22)
--- NOTE | 2022-04-10 13:17 | P.PN ---
Subjective Date of Service: 04/10/22 Chief Complaint: Generalized swelling Subjective: No new changes (Losing weight Right lower extremity ultrasound negative for DVT Evaluated by nephrology team today Patient worried that she only lost 3 pounds overnight) Physical Examination - Vital Signs Temperature: 97 F Blood Pressure: 100/56 Pulse: 78 Respirations: 20 Pulse Ox (%): 92 Assessment And Plan Physician Review: Patient Assessed, Agree with Above Assessment and Plan Physician Review Additional Text: Physical Exam General: Alert, In no apparent distress, Oriented x3, morbidly obese, on room air HEENT: Atraumatic, Normocephalic Neck: 2+ carotid pulse no bruit Respiratory: Diminished, Crackles/rales Cardiovascular: Normal pulses, Regular rate/rhythm, Normal S1 S2 Capillary refill: <2 Seconds Gastrointestinal: Normal bowel sounds, Soft and benign, Non-distended Musculoskeletal: Improving to 1+ bilateral pedal edemaright greater than left Neurological: Normal speech, Normal strength at 5/5 x4 extr, Sensation intact, Cranial nerves 3-12 intact Impression Presumed acute diastolic CHF exacerbationwith anasarca History of atrial flutter Chronic hypotension Morbid obesity Hypomagnesemia/hypokalemia Chronic hypotension Acute acute kidney injury on CKD Plan Still follow-up pending echo, Dr. James Discussed with to review echo for EF as well as pulmonary hypertension -If present of pulmonary hypertension, may allow for permissive lower extremity edema and will need pulmonary evaluation Continue gentle diuresis, added spironolactone to Bumex We DC metolazone and follow Still low serum sodium/potassium, follow with added spironolactone Creatinine worsening to 2.2 may be due to cardiorenal syndrome, follow with nephrology Still losing weight, overall weight loss of 20 pounds Still borderline hypotension, continue high-dose midodrine -unclear reason for chronic hypotension, may be due to systolic CHF Cardiology consult appreciated Started on Eliquis, continue for now Add physical therapy while inpatient s/p counseled on weight reduction, diet and exercise therapy 04/10/22 13:15 Time Spent Managing PTS Care (In Minutes): 35
--- NOTE | 2022-04-10 14:29 | CON ---
Date of Consultation: 04/07/2022 Reason For Consultation: New onset congestive heart failure with edema and anasarca. History Of Present Illness: Ms. Ghotra is 56. Has a history of obesity, chronic renal dysfunction, aortic sclerosis, chronic diastolic congestive heart failure. She has a history of hypertension as w ell as orthostatic hypotension. She came in with anasarca, PND, orthopnea, pedal edema. Denied any palpitation or syncope. Denied any fever or chills. Past Medical History: As stated above. Allergies: NONE. Review of Systems: Negative. Social History: Negative. Family History: Positive for hypertension and coronary artery disease. Medications: At home include Eliquis, Lasix, midodrine. She is presently on Lasix, inhalers, Eliqui s, hydralazine, aspirin as well as midodrine. Physical Examination: General: She weighed 340 pounds. HEENT: Negative. Vital Signs: Stable, afebrile, sinus rhythm. Chest: Reveals rales both bases. Cardiac: Revealed S4 gallops with aortic sclerosis murmur. Regular rhythm and rate. Abdomen: Obese. Extremities: Revealed 3+ edema all the way to the thigh with anasarca. Diagnostic Data: Her creatinine is 1.61. BNP is 12,000. Echocardiogram in 2019 showed diastolic co ngestive heart failure, 55% ejection fraction with aortic sclerosis. Impression And Plan: 1.Acute on chronic diastolic congestive heart failure with the aortic sclerosis. 2.Morbid obesity. 3.Orthostatic hypotension. 4.Hypertension. I think we need to get another 2D echocardiogram. Continue Lasix, midodrine, inhal ers, Eliquis, hydralazine, and aspirin. We will see what the ejection fraction shows before making f inal decision. I think a Lexiscan down the road may be reasonable. We will see how she does with di uresis, watch the kidney function, potassium magnesium, weight, I's and O's. Case was discussed with Dr. Msea. LAVERNE/CHENG Voice ID: [id number] Report ID: [id number]
--- NOTE | 2022-04-10 15:47 | P.DS ---
Admission Date: 04/06/22 Discharge Date: 04/10/22 Disposition: TRANSFER TO [facility] Reason for Admission: Generalized swelling Brief History of Present Illness: Reason for admission: Generalized swelling History of Present Illness: Patient is a 56-year-old female with a past medical history significant for morbid obesity, atrial flutter, CHF, hypotension who presents with complaint of generalized swelling that has been ongoing for the past 1 month. Patient reported that she has been compliant with her home diuretic medications. Patient reports associated signs and symptoms of shortness of breath. Patient reported that symptoms are aggravated or relieved by nothing. Patient denies any other signs or symptoms. Patient decided to present to the hospital due to worsening symptoms. Allergies No Known Allergies Allergy (Verified 02/24/19 20:50) Home medications list reviewed: Yes Home Medications: Apixaban [Eliquis] 5 mg PO BID tablet 03/11/19 Benzonatate [Tessalon Perle*] 100 mg PO TID PRN cap 03/11/19 Calcitrol [Rocaltrol*] 0.5 mcg PO DAILY cap 03/11/19 Cholecalciferol (Vitamin D3) [Vitamin D 5,000 IU Cap*] 5,000 unit PO DAILY cap 03/11/19 Collagenase [Santyl Ointment*] 1 appl TOP DAILY tube 03/11/19 Furosemide [Lasix 40 MG INJ*] 40 mg IV Q6HR vial 03/11/19 Levalbuterol [Xopenex*] 1.25 mg NEB [id number] vial 03/11/19 Midodrine HCl [Proamatine*] 10 mg PO TID tab 03/11/19 Mupirocin Oint [Bactroban 2% Ointment*] 1 appl TOP BID tube 03/11/19 Nystatin Powder [Mycostatin (Powder)*] 1 appl TOP BID btl 03/11/19 - Past Medical/Surgical History Diabetic: No -: morbid obesity -: lower extremity cellulitis -: kidney issues due to sepsis last 2018 -: hand surgeries Hospital Course: Hospital course Patient with morbid obesity, chronic hypotension, history of atrial flutter admitted for worsening shortness of breath with anasarca. She was started on IV diuresis with good diuresis but noted with worsening creatinine from 1.6 and steadily rising. Diuretics were switched to oral to avoid rapid diuresis. Her creatinine still continue to worsen intermittently corresponding with periods of large negative fluid balance. Her creatinine has worsened to 2.2 now over the last 4 days with 20 pounds with decreased. She continues to have persistent hypotension which slightly improved with high-dose midodrine. Given suspicion for pulmonary hypertension patient had an echocardiogram done with finding of severe pulmonary at palpitation with RSVP of greater than 120 mmHg and severe TR. Need for transfer to pulmonary hypertension management unit was discussed was recommended after discussion with cardiology and she is agreeable. We will transfer to any unit with pulmonary hypertension management team. Physical Exam General: Alert, In no apparent distress, Oriented x3, morbidly obese, on room air HEENT: Atraumatic, Normocephalic Neck: 2+ carotid pulse no bruit Respiratory: Diminished, Crackles/rales Cardiovascular: Normal pulses, Regular rate/rhythm, Normal S1 S2 Capillary refill: <2 Seconds Gastrointestinal: Normal bowel sounds, Soft and benign, Non-distended Musculoskeletal: Improving to 1+ bilateral pedal edemaright greater than left Neurological: Normal speech, Normal strength at 5/5 x4 extr, Sensation intact, Cranial nerves 3-12 intact Impression Presumed acute diastolic CHF exacerbationwith anasarca History of atrial flutter Chronic hypotension Morbid obesity Hypomagnesemia/hypokalemia Chronic hypotension Acute acute kidney injury on CKD Vital Signs/Physical Exam: Temp Pulse Resp BP Pulse Ox 97 F 78 20 100/56 L 92 04/10/22 13:17 04/10/22 13:17 04/10/22 13:17 04/10/22 13:17 04/10/22 13:17 Laboratory Data at Discharge: WBC 8.3 K/uL (4.3-10.9) 04/07/22 02:34 Hgb 15.9 g/dL (12.0-15.0) H 04/07/22 02:34 Hct 49.2 % (36.0-45.0) H 04/07/22 02:34 Plt Count 175 K/uL (152-406) 04/07/22 02:34 Sodium 134 mmol/L (136-145) L 04/10/22 03:32 Potassium 3.5 mmol/L (3.5-5.1) 04/10/22 03:32 BUN 43 mg/dL (7-18) H 04/10/22 03:32 Creatinine 2.22 mg/dL (0.55-1.3) H 04/10/22 03:32 Glucose 114 mg/dL (74-106) H 04/10/22 03:32 Phosphorus 3.3 mg/dL (2.5-4.9) 04/10/22 03:32 Magnesium 1.8 mg/dL (1.8-2.4) 04/10/22 14:17 Total Bilirubin 2.7 mg/dL (0.2-1.0) H 04/10/22 03:32 AST 20 U/L (15-37) 04/10/22 03:32 ALT 35 U/L (12-78) 04/10/22 03:32 Alkaline Phosphatase 58 U/L (45-117) 04/10/22 03:32 Home Medications: Apixaban [Eliquis] 5 mg PO BID tablet 03/11/19 Benzonatate [Tessalon Perle*] 100 mg PO TID PRN cap 03/11/19 Calcitrol [Rocaltrol*] 0.5 mcg PO DAILY cap 03/11/19 Cholecalciferol (Vitamin D3) [Vitamin D 5,000 IU Cap*] 5,000 unit PO DAILY cap 03/11/19 Collagenase [Santyl Ointment*] 1 appl TOP DAILY tube 03/11/19 Furosemide [Lasix 40 MG INJ*] 40 mg IV Q6HR vial 03/11/19 Levalbuterol [Xopenex*] 1.25 mg NEB [id number] vial 03/11/19 Midodrine HCl [Proamatine*] 10 mg PO TID tab 03/11/19 Mupirocin Oint [Bactroban 2% Ointment*] 1 appl TOP BID tube 03/11/19 Nystatin Powder [Mycostatin (Powder)*] 1 appl TOP BID btl 03/11/19 Diet: Low sodium Followup: OOT,OOT [Primary Care Provider] -
[2022-04-10] MEDS ORDERED: MAGNESIUM SULFATE 1 gm IVPB 1 GM/100 ML BAG IV ONE (16:00)
[2022-04-11] MEDS: LEVALBUTEROL 1.25 MG/3 ML NEB NEB SCH ×4 (01:22→20:00)
[2022-04-11 06:14] LABS: Absolute Lymphocytes (CBC) 1.1 K/uL (0.7-4.9); Lymphocytes % 10.9 % (15.3-44.8); MPV 7.2 fL (7.6-11.3); RBC Red Blood Cell Count 4.77 M/uL (3.86-4.86)
[2022-04-11 06:38] LABS: Albumin 3.1 g/dL (3.4-5.0); Bilirubin Total 2.5 mg/dL (0.2-1.0)
[2022-04-11 06:43] LABS: Potassium 3.4 mmol/L (3.5-5.1)
[2022-04-11] MEDS ORDERED: POTASSIUM CL SA 10 MEQ TAB PO ONE (09:00)
[2022-04-11] MEDS: MUPIROCIN 2% OINT 22GM TUBE TOP SCH ×2 (09:00→21:00)
[2022-04-11] MEDS: METOLAZONE 5 MG TABLET PO SCH (09:48)
[2022-04-11] MEDS: ASPIRIN 81 MG CHEWABLE TABLET PO SCH (09:48)
[2022-04-11] MEDS: MIDODRINE HCL 5 MG TABLET PO SCH ×3 (09:48→21:02)
[2022-04-11] MEDS: BENZONATATE 100 MG CAP PO PRN ×2 (09:48→17:44)
[2022-04-11] MEDS: SPIRONOLACTONE 25 MG TABLET PO SCH ×2 (09:49→21:01)
[2022-04-11] MEDS: BUMETANIDE 1 MG TABLET PO SCH ×2 (09:49→21:01)
[2022-04-11] MEDS: CALCITROL 0.25 MCG CAP PO SCH (09:50)
[2022-04-11] MEDS: APIXABAN 5 MG TABLET PO SCH ×2 (09:50→21:02)
[2022-04-11] MEDS: VITAMIN D 5,000 UNIT CAP PO SCH (09:50)
[2022-04-11] MEDS: levoFLOXacin 250 MG TAB PO SCH (09:50)
[2022-04-11] MEDS: COLLAGENASE 30 GM OINTMENT TOP SCH (09:51)
[2022-04-11] MEDS: NYSTATIN PWDR 100000 UNIT/GM TOP SCH ×2 (09:51→21:00)
--- NOTE | 2022-04-11 10:18 | P.PN ---
Date of Service: 04/11/22 Vital Signs Temp Pulse Resp BP Pulse Ox 97.0 F 81 14 111/66 94 04/11/22 08:00 04/11/22 09:49 04/11/22 08:00 04/11/22 09:49 04/11/22 08:00 Medications Acetaminophen (Acetaminophen 500 Mg Tab) 500 mg PO Q4HP PRN PRN Reason: TEMP > 100' F Hydrocodone Bitart/Acetaminophen (Hydrocodone/Apap 5/325 Mg Tab) 1 tab PO Q6H PRN PRN Reason: Pain scale 5-7 (Moderate) Albuterol Sulfate (Albuterol 2.5 Mg/3 Ml Neb Opal) 2.5 mg NEB [id number] PRN PRN Reason: SHORTNESS OF BREATH Apixaban (Apixaban 5 Mg Tablet) 5 mg PO BID [facility] Last Admin: 04/11/22 09:50 Dose: 5 mg Documented by: Aspirin (Aspirin 81 Mg Chewable Tablet) 81 mg PO DAILY [facility] Last Admin: 04/11/22 09:48 Dose: 81 mg Documented by: Benzonatate (Benzonatate 100 Mg Cap) 100 mg PO TID PRN PRN Reason: COUGH Last Admin: 04/11/22 09:48 Dose: 100 mg Documented by: Bumetanide (Bumetanide 1 Mg Tablet) 2 mg PO BID [facility] Last Admin: 04/11/22 09:49 Dose: 2 mg Documented by: Calcitriol (Calcitrol 0.25 Mcg Cap) 0.5 mcg PO DAILY [facility] Last Admin: 04/11/22 09:50 Dose: 0.5 mcg Documented by: Cholecalciferol (Vitamin D 5,000 Unit Cap) 5,000 unit PO DAILY [facility] Last Admin: 04/11/22 09:50 Dose: 5,000 unit Documented by: Collagenase (Collagenase 30 Gm Ointment) 1 appl TOP DAILY [facility] Last Admin: 04/11/22 09:51 Dose: 1 appl Documented by: Hydralazine HCl (Hydralazine Hcl 20 Mg/Ml Vial) 10 mg IV Q6HP PRN PRN Reason: Titrate to SBP (MUST DEFINE) Ipratropium [place] (Ipratropium Brom 0.5mg/2.5ml) 0.5 mg NEB [id number] PRN PRN Reason: sob Last Admin: 04/08/22 01:38 Dose: 0.5 mg Documented by: Levalbuterol HCl (Levalbuterol 1.25 Mg/3 Ml Neb) 1.25 mg NEB [id number] [facility] Last Admin: 04/11/22 01:22 Dose: Not Given Documented by: Levofloxacin (Levofloxacin 250 Mg Tab) 250 mg PO DAILY [facility]; Protocol Last Admin: 04/11/22 09:50 Dose: 250 mg Documented by: Metolazone (Metolazone 5 Mg Tablet) 5 mg PO DAILY [facility] Last Admin: 04/11/22 09:48 Dose: 5 mg Documented by: Midodrine (Midodrine Hcl 5 Mg Tablet) 10 mg PO TID [facility] Last Admin: 04/11/22 09:48 Dose: 10 mg Documented by: Mupirocin (Mupirocin 2% Oint 22gm Tube) 1 appl TOP BID [facility] Last Admin: 04/11/22 09:00 Dose: Not Given Documented by: Nystatin (Nystatin Pwdr [id number] Unit/Gm) 1 appl TOP BID [facility] Last Admin: 04/11/22 09:51 Dose: 1 appl Documented by: Ondansetron HCl (Ondansetron 4 Mg/2 Ml Vial) 4 mg IV Q6HP PRN PRN Reason: NAUSEA / VOMITING Sildenafil Citrate (Sildenafil Citrate 20 Mg Tablet) 20 mg PO TID [facility] Sodium Chloride (Flush Normal Saline 10 Ml) 10 ml IV BID [facility] Last Admin: 04/11/22 09:00 Dose: 10 ml Documented by: Spironolactone (Spironolactone 25 Mg Tablet) 25 mg PO BID [facility] Last Admin: 04/11/22 09:49 Dose: 25 mg Documented by: Assessment/ Plan: Nephrology No dyspnea No chest pain Persistent edema, improved No acute events overnight Vitals, medications, blood work and imaging reviewed in the chart General: In no apparent distress, Oriented x3, Cooperative HEENT: Atraumatic Neck: Supple Respiratory: Clear to auscultation bilaterally Cardiovascular: Regular rate/rhythm, Edema Gastrointestinal: Soft and benign, Non-distended, No guarding Musculoskeletal: No clubbing, No contractures Integumentary: No cyanosis Neurological: Normal speech Blood work reviewed in the chart. Imagings Data: EXAM DESCRIPTION: US - Renal Ultrasound-Complete - 04/09/2022 4:13 pm CLINICAL HISTORY: Acute renal failure COMPARISON: 2019 FINDINGS: Poor evaluation of the kidneys secondary to body habitus. No gross abnormality of bladder IMPRESSION: Poor evaluation of the kidneys secondary to body habitus. No gross abnormality of bladder EXAM DESCRIPTION: RAD - Chest Single View - 04/06/2022 4:00 pm CLINICAL HISTORY: DYSPNEA Chest pain. COMPARISON: Chest Single View dated 03/06/2019; Chest Single View dated 03/02/2019; Chest Single View dated 03/01/2019; Chest Pa And Lat (2 Views) dated 02/25/2019; Chest Single View dated 02/24/2019 FINDINGS: Portable technique limits examination quality. The lungs are grossly clear. The heart is moderately enlarged in size. No displaced fractures. EXAM DESCRIPTION: CT - Thorax Wo Con CLINICAL HISTORY: Chest pain Need only CT chest without Contrast COMPARISON: Chest Single View dated 04/06/2022 FINDINGS: The lungs are clear. No pleural thickening or pleural effusion. No pneumothorax. Pulmonary arterial tree appears prominent which may indicate underlying pulmonary arterial hypertension. No axillary, mediastinal or hilar adenopathy. No concerning bony finding. No gross upper abdominal finding. All CT scans are performed using dose optimization technique as appropriate and may include automated exposure control or mA/KV adjustment according to patient size. IMPRESSION: No acute intrathoracic abnormality. Suspected underlying pulmonary arterial hypertension. Conclusions/Impression: BRANDON in the setting of hypotension & diuresis CKD III with proteinuria -No NSAIDs -Discontinue Metolzone Hyponatremia -Discontinue Metolazone Hypokalemia -Replete potassium -Continue Spironolactone 25 BID Hypomagnesemia -Replete prn Chronic hypotension -Continue Midodrine Diastolic CHF, A/C Pulmonary HTN Anasarca/ LE Edema -Continue diuresis as tolerated -Start Revatio TID Mild protein malnutrition -Maintain nutrition Acute E.coli Cystitis -Continue Levaquin
[2022-04-11] MEDS: SILDENAFIL CITRATE 20 MG TABLET PO SCH ×3 (12:31→21:02)
--- NOTE | 2022-04-11 18:15 | P.PN ---
Date of Service: 04/11/22 Subjective Subjective: Patient with no new complaints. Waiting for transfer to pulmonary hypertension clinic Physical Examination - Vital Signs reviewed Physical Exam General: Alert, In no apparent distress, Oriented x3, morbidly obese, on room air HEENT: Atraumatic, Normocephalic Neck: 2+ carotid pulse no bruit Respiratory: Diminished, Crackles/rales Cardiovascular: Normal pulses, Regular rate/rhythm, Normal S1 S2 Capillary refill: <2 Seconds Gastrointestinal: Normal bowel sounds, Soft and benign, Non-distended Musculoskeletal: Improving to 1+ bilateral pedal edemaright greater than left Neurological: Normal speech, Normal strength at 5/5 x4 extr, Sensation intact, Cranial nerves 3-12 intact Assessment And Plan Impression: Presumed acute diastolic CHF exacerbationwith anasarca History of atrial flutter Chronic hypotension Morbid obesity Hypomagnesemia/hypokalemia Chronic hypotension Acute acute kidney injury on CKD Plan: Echo w/ severe pulmonary hypertension -If present of pulmonary hypertension, may allow for permissive lower extremity edema and will need pulmonary evaluation Continue gentle diuresis, added spironolactone to Bumex Monitor labs closely; Hyponatremia and hyperkalemia along with renal function Creatinine worsening to 2.2 may be due to cardiorenal syndrome, follow with nephrology Still losing weight, overall weight loss of 20 pounds -Still borderline hypotension, continue high-dose midodrine; unclear reason for chronic hypotension, may be due to systolic CHF Cardiology consult appreciated Started on Eliquis, continue for now Add physical therapy while inpatient
[2022-04-11] MEDS: ENSURE HIGH PROTEIN 237 ML CAN PO SCH (21:00)
[2022-04-12] MEDS: LEVALBUTEROL 1.25 MG/3 ML NEB NEB SCH ×4 (01:37→20:00)
[2022-04-12 02:28] LABS: Urine Appearance Clear (Clear); Urine Bilirubin Negative (Negative); Urine Blood 2+ (Negative); Urine Color Yellow (Yellow); Urine Glucose Negative (Negative); Urine Protein Negative (Negative); Urine Urobilinogen 0.2 mg/dL (0.2-1.0); Urine pH 5.5 (5.0-7.0)
[2022-04-12 02:30] LABS: Urine Microscopic Reflex ORDER UMIC
[2022-04-12 03:34] LABS: Urine Amorphous Sediment 1+ /HPF (NONE SEEN); Urine Bacteria >50 /HPF (<20); Urine Mucus 2+ /HPF (NONE SEEN)
[2022-04-12 04:30] LABS: Potassium 3.4 mmol/L (3.5-5.1)
[2022-04-12 04:54] LABS: Absolute Lymphocytes (CBC) 1.2 K/uL (0.7-4.9); Hematocrit 49.2 % (36.0-45.0); Lymphocytes % 13.1 % (15.3-44.8); MPV 7.5 fL (7.6-11.3); RBC Red Blood Cell Count 4.99 M/uL (3.86-4.86)
[2022-04-12] MEDS ORDERED: POTASSIUM CL SA 10 MEQ TAB PO ONE ×2 (06:00→20:00)
[2022-04-12] MEDS ORDERED: MAGNESIUM SULFATE 1 gm IVPB 1 GM/100 ML BAG IV ONE (06:00)
--- NOTE | 2022-04-12 06:45 | ECHO ---
HEIGHT: 5 ft 4 in WEIGHT: 321 lb 9.6 oz DATE OF STUDY: 04/08/[address]: All Graham 2-DIMENSIONAL: YES M.MODE: YES DOPPLER: YES COLOR FLOW: YES TDS: YES PORTABLE: YES DEFINITY: BUBBLE STUDY: DIAGNOSIS: CONGESTIVE HEART FAILURE CARDIAC HISTORY: CATHERIZATION: NO SURGERY: NO PROSTHETIC VALVE: NO PACEMAKER: NO MEASUREMENTS (cm) DIASTOLIC (NORMALS) SYSTOLIC (NORMALS) IVSd 1.2 (0.6-1.2) LA Diam 3.3 (1.9-4.0) LVEF 71% LVIDd 2.4 (3.5-5.7) LVIDs 1.5 (2.0-3.5) %FS 39% LVPWd 1.3 (0.6-1.2) Ao Diam 3.1 (2.0-3.7) 2 DIMENSIONAL ASSESSMENT: RIGHT ATRIUM: NOT SEEN WELL LEFT ATRIUM: NORMAL RIGHT VENTRICLE: NOT SEEN WELL LEFT VENTRICLE: NORMAL TRICUSPID VALVE: SEVERE TRICUSPID REGURGITATION MITRAL VALVE: MITRAL ANNULAR CALCIFICATION PULMONIC VALVE: NOT SEEN WELL AORTIC VALVE: NORMAL PERICARDIAL EFFUSION: NONE AORTIC ROOT: NORMAL LEFT VENTRICULAR WALL MOTION: NORMAL DOPPLER/COLOR FLOW: SEE BELOW COMMENTS: NORMAL LEFT VENTRICULAR EJECTION FRACTION > 60% WITH NORMAL WALL MOTION. SEVERE TRICUSPID REGURGITATION. SEVERE PULMONARY HYPERTENSION WITH RIGHT VENTRICULAR SYSTOLIC PRESSURE OF > 80 mmHg. TECHNOLOGIST: LORIN MCQUEEN
[2022-04-12] MEDS: CALCITROL 0.25 MCG CAP PO SCH (08:46)
[2022-04-12] MEDS: APIXABAN 5 MG TABLET PO SCH ×2 (08:46→22:15)
[2022-04-12] MEDS: BUMETANIDE 1 MG TABLET PO SCH ×2 (08:46→22:14)
[2022-04-12] MEDS: levoFLOXacin 250 MG TAB PO SCH (08:46)
[2022-04-12] MEDS: ASPIRIN 81 MG CHEWABLE TABLET PO SCH (08:46)
[2022-04-12] MEDS: VITAMIN D 5,000 UNIT CAP PO SCH (08:46)
[2022-04-12] MEDS: SPIRONOLACTONE 25 MG TABLET PO SCH ×2 (08:46→22:15)
[2022-04-12] MEDS: SILDENAFIL CITRATE 20 MG TABLET PO SCH (08:47)
[2022-04-12] MEDS: MIDODRINE HCL 5 MG TABLET PO SCH ×3 (08:47→22:16)
[2022-04-12] MEDS: BENZONATATE 100 MG CAP PO PRN ×2 (08:47→14:58)
[2022-04-12] MEDS: ENSURE HIGH PROTEIN 237 ML CAN PO SCH ×2 (08:48→21:00)
[2022-04-12] MEDS: NYSTATIN PWDR 100000 UNIT/GM TOP SCH ×2 (08:48→21:00)
[2022-04-12] MEDS: COLLAGENASE 30 GM OINTMENT TOP SCH (08:49)
[2022-04-12] MEDS: MUPIROCIN 2% OINT 22GM TUBE TOP SCH ×2 (08:49→21:00)
[2022-04-12] MEDS ORDERED: levoFLOXacin 500 MG TAB PO ONE (14:00)
[2022-04-12] MEDS: HYDROCODONE/APAP 5/325 MG TAB PO PRN (14:57)
[2022-04-12] MEDS ORDERED: METHYLPREDNISOLONE 125 MG INJ IV ONE (16:03)
--- NOTE | 2022-04-12 16:59 | P.CNS ---
Date of Consult: 04/12/22 Reason for Consult: Pulmonary HTN Chief Complaint: Generalized swelling History of Present Illness: Age 56 AW SOB And Progressive LE edema. Dx with severe pulmonary HTN. off O2 Feels weak- Transfer declined. No PH of Pulmonary HTN. SS doen before Allergies No Known Allergies Allergy (Verified 02/24/19 20:50) Home Medications: Apixaban [Eliquis] 5 mg PO BID tablet 03/11/19 Benzonatate [Tessalon [place]*] 100 mg PO TID PRN cap 03/11/19 Calcitrol [Rocaltrol*] 0.5 mcg PO DAILY cap 03/11/19 Cholecalciferol (Vitamin D3) [Vitamin D 5,000 IU Cap*] 5,000 unit PO DAILY cap 03/11/19 Collagenase [Santyl Ointment*] 1 appl TOP DAILY tube 03/11/19 Furosemide [Lasix 40 MG INJ*] 40 mg IV Q6HR vial 03/11/19 Levalbuterol [Xopenex*] 1.25 mg NEB [id number] vial 03/11/19 Midodrine HCl [Proamatine*] 10 mg PO TID tab 03/11/19 Mupirocin Oint [Bactroban 2% Ointment*] 1 appl TOP BID tube 03/11/19 Nystatin Powder [Mycostatin (Powder)*] 1 appl TOP BID btl 03/11/19 - Past Medical/Surgical History Diabetic: No -: morbid obesity -: lower extremity cellulitis -: kidney issues due to sepsis last 2017 -: BRANDON/ CKD followed by Dr. Luu -: hand surgeries - Family History Mother Medical History: Hypertension, Cancer Father Medical History: Cancer - Social History Smoking Status: Former smoker Alcohol use: No CD- Drugs: No Caffeine use: Yes Place of Residence: Home Review of Systems General: Weakness Respiratory: Shortness of Breath Cardiovascular: Edema Physical Examination Temp Pulse Resp BP Pulse Ox 97.1 F 81 20 84/52 L 95 04/12/22 16:00 04/12/22 16:00 04/12/22 16:00 04/12/22 16:00 04/12/22 16:00 General: Alert, In no apparent distress, Mild distress Respiratory: Clear to auscultation bilaterally Cardiovascular: Edema Gastrointestinal: Normal bowel sounds, Soft and benign Integumentary: No breakdown - Problems (1) Pulmonary hypertension Current Visit: Yes Status: Acute Plan: Severe Pulmonary htn by ECHO, Poor quality ECHO/ Likely due to diastolic dysfunction. Reduce dose of Sidenafil. VQ RO PE. Cw diuresis. No DVT No acute changes on CT of chest / off O2 Low BP sec to aggressive disuresis/ pt is on Eliquis. C renal failure. Plan to DC am after VQ scan on low dose sidenagil 10 mg BID will adjust dose if needed. OP PFT
[2022-04-12] MEDS ORDERED: ALBUMIN HUMAN 25% 50 ML IV ONE (18:17)
[2022-04-12] MEDS ORDERED: FUROSEMIDE 20 MG/ 2ML VIAL IV ONE (18:17)
--- NOTE | 2022-04-12 20:08 | P.PN ---
Date of Service: 04/12/22 Vital Signs Temp Pulse Resp BP Pulse Ox 97.1 F 82 20 104/60 95 04/12/22 16:00 04/12/22 19:02 04/12/22 16:00 04/12/22 19:02 04/12/22 16:00 Medications Acetaminophen (Acetaminophen 500 Mg Tab) 500 mg PO Q4HP PRN PRN Reason: TEMP > 100' F Hydrocodone Bitart/Acetaminophen (Hydrocodone/Apap 5/325 Mg Tab) 1 tab PO Q6H PRN PRN Reason: Pain scale 5-7 (Moderate) Last Admin: 04/12/22 14:57 Dose: 1 tab Documented by: Albuterol Sulfate (Albuterol 2.5 Mg/3 Ml Neb Opal) 2.5 mg NEB [id number] PRN PRN Reason: SHORTNESS OF BREATH Apixaban (Apixaban 5 Mg Tablet) 5 mg PO BID [facility] Last Admin: 04/12/22 08:46 Dose: 5 mg Documented by: Aspirin (Aspirin 81 Mg Chewable Tablet) 81 mg PO DAILY [facility] Last Admin: 04/12/22 08:46 Dose: 81 mg Documented by: Benzonatate (Benzonatate 100 Mg Cap) 100 mg PO TID PRN PRN Reason: COUGH Last Admin: 04/12/22 14:58 Dose: 100 mg Documented by: Bumetanide (Bumetanide 1 Mg Tablet) 2 mg PO BID [facility] Last Admin: 04/12/22 08:46 Dose: 2 mg Documented by: Calcitriol (Calcitrol 0.25 Mcg Cap) 0.5 mcg PO DAILY [facility] Last Admin: 04/12/22 08:46 Dose: 0.5 mcg Documented by: Cholecalciferol (Vitamin D 5,000 Unit Cap) 5,000 unit PO DAILY [facility] Last Admin: 04/12/22 08:46 Dose: 5,000 unit Documented by: Collagenase (Collagenase 30 Gm Ointment) 1 appl TOP DAILY [facility] Last Admin: 04/12/22 08:49 Dose: 1 appl Documented by: Albumin Human 12.5 gm/Furosemide 100 mg/ Sodium Chloride 100 mls @ 20 mls/hr IV Q5H [facility] Stop: 04/13/22 19:59 Ipratropium [place] (Ipratropium Brom 0.5mg/2.5ml) 0.5 mg NEB [id number] PRN PRN Reason: sob Last Admin: 04/08/22 01:38 Dose: 0.5 mg Documented by: Levalbuterol HCl (Levalbuterol 1.25 Mg/3 Ml Neb) 1.25 mg NEB [id number] [facility] Last Admin: 04/12/22 14:00 Dose: Not Given Documented by: Midodrine (Midodrine Hcl 5 Mg Tablet) 10 mg PO TID [facility] Last Admin: 04/12/22 14:57 Dose: 10 mg Documented by: Mupirocin (Mupirocin 2% Oint 22gm Tube) 1 appl TOP BID [facility] Last Admin: 04/12/22 08:49 Dose: Not Given Documented by: Nutritional Formula (Ensure High Protein 237 Ml Can) 237 ml PO BID [facility] Last Admin: 04/12/22 08:48 Dose: Not Given Documented by: Nystatin (Nystatin Pwdr [id number] Unit/Gm) 1 appl TOP BID [facility] Last Admin: 04/12/22 08:48 Dose: 1 appl Documented by: Ondansetron HCl (Ondansetron 4 Mg/2 Ml Vial) 4 mg IV Q6HP PRN PRN Reason: NAUSEA / VOMITING Sildenafil Citrate (Sildenafil Citrate 20 Mg Tablet) 10 mg PO TID [facility] Sodium Chloride (Flush Normal Saline 10 Ml) 10 ml IV BID [facility] Last Admin: 04/12/22 08:48 Dose: 10 ml Documented by: Spironolactone (Spironolactone 25 Mg Tablet) 25 mg PO BID [facility] Last Admin: 04/12/22 08:46 Dose: 25 mg Documented by: Assessment/ Plan: Nephrology No dyspnea. RG No chest pain Persistent edema No acute events overnight Vitals, medications, blood work and imaging reviewed in the chart General: In no apparent distress, Oriented x3, Cooperative HEENT: Atraumatic Neck: Supple Respiratory: Clear to auscultation bilaterally Cardiovascular: Regular rate/rhythm, Edema Gastrointestinal: Soft and benign, Non-distended, No guarding Musculoskeletal: No clubbing, No contractures Integumentary: No cyanosis Neurological: Normal speech Blood work reviewed in the chart. Imagings Data: EXAM DESCRIPTION: US - Renal Ultrasound-Complete - 04/09/2022 4:13 pm CLINICAL HISTORY: Acute renal failure COMPARISON: 2019 FINDINGS: Poor evaluation of the kidneys secondary to body habitus. No gross abnormality of bladder IMPRESSION: Poor evaluation of the kidneys secondary to body habitus. No gross abnormality of bladder EXAM DESCRIPTION: RAD - Chest Single View - 04/06/2022 4:00 pm CLINICAL HISTORY: DYSPNEA Chest pain. COMPARISON: Chest Single View dated 03/06/2019; Chest Single View dated 03/02/2019; Chest Single View dated 03/01/2019; Chest Pa And Lat (2 Views) dated 02/25/2019; Chest Single View dated 02/24/2019 FINDINGS: Portable technique limits examination quality. The lungs are grossly clear. The heart is moderately enlarged in size. No displaced fractures. EXAM DESCRIPTION: CT - Thorax Wo Con CLINICAL HISTORY: Chest pain Need only CT chest without Contrast COMPARISON: Chest Single View dated 04/06/2022 FINDINGS: The lungs are clear. No pleural thickening or pleural effusion. No pneumothorax. Pulmonary arterial tree appears prominent which may indicate underlying pulmonary arterial hypertension. No axillary, mediastinal or hilar adenopathy. No concerning bony finding. No gross upper abdominal finding. All CT scans are performed using dose optimization technique as appropriate and may include automated exposure control or mA/KV adjustment according to patient size. IMPRESSION: No acute intrathoracic abnormality. Suspected underlying pulmonary arterial hypertension. Conclusions/Impression: BRANDON in the setting of hypotension & diuresis CKD III with proteinuria -No NSAIDs -Continue diuresis Hyponatremia -Monitor level Hypokalemia -Replete potassium -Continue Spironolactone 25 BID Hypomagnesemia -Replete prn Chronic hypotension -Continue Midodrine Diastolic CHF, A/C Pulmonary HTN Anasarca/ LE Edema -Continue diuresis as tolerated -Continue Revatio TID Mild protein malnutrition -Maintain nutrition Acute E.coli Cystitis -Continue Levaquin
[2022-04-12] MEDS ORDERED: SILDENAFIL CITRATE 20 MG TABLET PO SCH (21:00)
[2022-04-13] MEDS: LEVALBUTEROL 1.25 MG/3 ML NEB NEB SCH ×4 (01:28→20:00)
[2022-04-13 06:06] LABS: Absolute Lymphocytes (CBC) 0.5 K/uL (0.7-4.9); Hematocrit 48.2 % (36.0-45.0); Lymphocytes % 7.9 % (15.3-44.8); MPV 7.5 fL (7.6-11.3)
[2022-04-13 06:21] LABS: Magnesium 1.9 mg/dL (1.8-2.4); Potassium 3.6 mmol/L (3.5-5.1)
[2022-04-13 06:50] LABS: Blood Morphology Comment NOT SEEN (NOT SEEN); Platelet Estimate ADEQ; White Blood Cell Scan OK (OK)
[2022-04-13] MEDS ORDERED: POTASSIUM CL SA 10 MEQ TAB PO ONE ×2 (07:30→08:44)
--- NOTE | 2022-04-13 08:05 | P.PN ---
Subjective Date of Service: 04/13/22 Chief Complaint: Generalized swelling No change/ feeling week. Off o2 LE edema Review of Systems General: Weakness Respiratory: Shortness of Breath Physical Examination - Vital Signs Temperature: 97.0 F Blood Pressure: 90/53 Pulse: 75 Respirations: 13 Pulse Ox (%): 90 - Physical Exam General: Alert, In no apparent distress, Oriented x3 Neck: Supple Respiratory: Clear to auscultation bilaterally Cardiovascular: Regular rate/rhythm, Edema Assessment And Plan - Current Problems (Diagnosis) (1) Pulmonary hypertension Current Visit: Yes Status: Acute Plan: Pulm HTN sec to diastoic dysfunction?/ VQ pending. RA ABG's, Reduce dose of sildenafil for now. in neg fluid balance/ plan for discharge renal fucntion improving. Serum cortisol level/ ACTH stim test done in 2019 /Ne of adrenal insuff
--- NOTE | 2022-04-13 08:47 | P.PN ---
Date of Service: 04/13/22 Vital Signs Temp Pulse Resp BP Pulse Ox 97.0 F 75 13 90/53 L 90 L 04/13/22 08:06 04/13/22 08:06 04/13/22 08:06 04/13/22 08:06 04/13/22 08:06 Medications Acetaminophen (Acetaminophen 500 Mg Tab) 500 mg PO Q4HP PRN PRN Reason: TEMP > 100' F Hydrocodone Bitart/Acetaminophen (Hydrocodone/Apap 5/325 Mg Tab) 1 tab PO Q6H PRN PRN Reason: Pain scale 5-7 (Moderate) Last Admin: 04/12/22 14:57 Dose: 1 tab Documented by: Albuterol Sulfate (Albuterol 2.5 Mg/3 Ml Neb Opal) 2.5 mg NEB [id number] PRN PRN Reason: SHORTNESS OF BREATH Apixaban (Apixaban 5 Mg Tablet) 5 mg PO BID [facility] Last Admin: 04/12/22 22:15 Dose: 5 mg Documented by: Aspirin (Aspirin 81 Mg Chewable Tablet) 81 mg PO DAILY [facility] Last Admin: 04/12/22 08:46 Dose: 81 mg Documented by: Benzonatate (Benzonatate 100 Mg Cap) 100 mg PO TID PRN PRN Reason: COUGH Last Admin: 04/12/22 14:58 Dose: 100 mg Documented by: Bumetanide (Bumetanide 1 Mg Tablet) 2 mg PO BID [facility] Last Admin: 04/12/22 22:14 Dose: 2 mg Documented by: Calcitriol (Calcitrol 0.25 Mcg Cap) 0.5 mcg PO DAILY [facility] Last Admin: 04/12/22 08:46 Dose: 0.5 mcg Documented by: Cholecalciferol (Vitamin D 5,000 Unit Cap) 5,000 unit PO DAILY [facility] Last Admin: 04/12/22 08:46 Dose: 5,000 unit Documented by: Collagenase (Collagenase 30 Gm Ointment) 1 appl TOP DAILY [facility] Last Admin: 04/12/22 08:49 Dose: 1 appl Documented by: Albumin Human 12.5 gm/Furosemide 100 mg/ Sodium Chloride 100 mls @ 20 mls/hr IV Q5H [facility] Stop: 04/13/22 19:59 Ipratropium [place] (Ipratropium Brom 0.5mg/2.5ml) 0.5 mg NEB [id number] PRN PRN Reason: sob Last Admin: 04/08/22 01:38 Dose: 0.5 mg Documented by: Levalbuterol HCl (Levalbuterol 1.25 Mg/3 Ml Neb) 1.25 mg NEB [id number] [facility] Last Admin: 04/13/22 08:00 Dose: Not Given Documented by: Midodrine (Midodrine Hcl 5 Mg Tablet) 10 mg PO TID [facility] Last Admin: 04/12/22 22:16 Dose: 10 mg Documented by: Mupirocin (Mupirocin 2% Oint 22gm Tube) 1 appl TOP BID [facility] Last Admin: 04/12/22 21:00 Dose: Not Given Documented by: Nutritional Formula (Ensure High Protein 237 Ml Can) 237 ml PO BID [facility] Last Admin: 04/12/22 21:00 Dose: Not Given Documented by: Nystatin (Nystatin Pwdr [id number] Unit/Gm) 1 appl TOP BID [facility] Last Admin: 04/12/22 21:00 Dose: 1 appl Documented by: Ondansetron HCl (Ondansetron 4 Mg/2 Ml Vial) 4 mg IV Q6HP PRN PRN Reason: NAUSEA / VOMITING Sildenafil Citrate (Sildenafil Citrate 20 Mg Tablet) 10 mg PO BID [facility] Sodium Chloride (Flush Normal Saline 10 Ml) 10 ml IV BID [facility] Last Admin: 04/12/22 22:16 Dose: 10 ml Documented by: Spironolactone (Spironolactone 25 Mg Tablet) 25 mg PO BID [facility] Last Admin: 04/12/22 22:15 Dose: 25 mg Documented by: Assessment/ Plan: Nephrology No dyspnea. RG No chest pain Persistent edema No acute events overnight Vitals, medications, blood work and imaging reviewed in the chart General: In no apparent distress, Oriented x3, Cooperative HEENT: Atraumatic Neck: Supple Respiratory: Clear to auscultation bilaterally Cardiovascular: Regular rate/rhythm, Edema Gastrointestinal: Soft and benign, Non-distended, No guarding Musculoskeletal: No clubbing, No contractures Integumentary: No cyanosis Neurological: Normal speech Blood work reviewed in the chart. Imagings Data: EXAM DESCRIPTION: US - Renal Ultrasound-Complete - 04/09/2022 4:13 pm CLINICAL HISTORY: Acute renal failure COMPARISON: 2019 FINDINGS: Poor evaluation of the kidneys secondary to body habitus. No gross abnormality of bladder IMPRESSION: Poor evaluation of the kidneys secondary to body habitus. No gross abnormality of bladder EXAM DESCRIPTION: RAD - Chest Single View - 04/06/2022 4:00 pm CLINICAL HISTORY: DYSPNEA Chest pain. COMPARISON: Chest Single View dated 03/06/2019; Chest Single View dated 03/02/2019; Chest Single View dated 03/01/2019; Chest Pa And Lat (2 Views) dated 02/25/2019; Chest Single View dated 02/24/2019 FINDINGS: Portable technique limits examination quality. The lungs are grossly clear. The heart is moderately enlarged in size. No displaced fractures. EXAM DESCRIPTION: CT - Thorax Wo Con CLINICAL HISTORY: Chest pain Need only CT chest without Contrast COMPARISON: Chest Single View dated 04/06/2022 FINDINGS: The lungs are clear. No pleural thickening or pleural effusion. No pneumothorax. Pulmonary arterial tree appears prominent which may indicate underlying pulmonary arterial hypertension. No axillary, mediastinal or hilar adenopathy. No concerning bony finding. No gross upper abdominal finding. All CT scans are performed using dose optimization technique as appropriate and may include automated exposure control or mA/KV adjustment according to patient size. IMPRESSION: No acute intrathoracic abnormality. Suspected underlying pulmonary arterial hypertension. Conclusions/Impression: BRANDON in the setting of hypotension & diuresis CKD III with proteinuria -No NSAIDs -Continue diuresis Hyponatremia -Monitor level Hypokalemia -Replete potassium -Continue Spironolactone 25 BID Hypomagnesemia -Replete prn Chronic hypotension -Continue Midodrine Diastolic CHF, A/C Pulmonary HTN Hypoxic respiratory failure, A/C Anasarca/ LE Edema -Continue diuresis as tolerated -Continue Revatio TID -V/Q scan reviewed Mild protein malnutrition -Maintain nutrition Acute E.coli Cystitis -Continue Levaquin
--- NOTE | 2022-04-13 08:49 | P.PN ---
Date of Service: 04/12/22 Subjective Subjective: Spoke with pulmonary. We will get a VQ scan and there cannot change the dose of sildenafil. They will follow the patient as an outpatient pending VQ scan studies. Patient is having pain on the right foot. She is worried about the swelling. We will start her on a albumin and Lasix drip to get some fluid off of the patient. Physical Examination - Vital Signs reviewed Physical Exam General: Alert, In no apparent distress, Oriented x3, morbidly obese, on room air Respiratory: Diminished, Crackles/rales Cardiovascular: Normal pulses, Regular rate/rhythm, Normal S1 S2 Capillary refill: <2 Seconds Gastrointestinal: Normal bowel sounds, Soft and benign, Non-distended Musculoskeletal: Improving to 1+ bilateral pedal edemaright greater than left Neurological: No focal deficits Assessment And Plan Impression: Presumed acute diastolic CHF exacerbationwith anasarca History of atrial flutter Chronic hypotension Morbid obesity Hypomagnesemia/hypokalemia Chronic hypotension Acute acute kidney injury on CKD Plan: Echo w/ severe pulmonary hypertension -If present of pulmonary hypertension, may allow for permissive lower extremity edema and will need pulmonary evaluation Continue gentle diuresis, added spironolactone to Bumex Monitor labs closely; Hyponatremia and hyperkalemia along with renal function Creatinine worsening to 2.2 may be due to cardiorenal syndrome, follow with nephrology Still losing weight, overall weight loss of 20 pounds -Still borderline hypotension, continue high-dose midodrine; unclear reason for chronic hypotension, may be due to systolic CHF Cardiology consult appreciated Started on Eliquis, continue for now Add physical therapy while inpatient
[2022-04-13] MEDS: COLLAGENASE 30 GM OINTMENT TOP SCH (09:00)
[2022-04-13] MEDS: MUPIROCIN 2% OINT 22GM TUBE TOP SCH ×2 (09:00→21:00)
[2022-04-13] MEDS: NYSTATIN PWDR 100000 UNIT/GM TOP SCH ×3 (09:00→22:42)
[2022-04-13] MEDS: ENSURE HIGH PROTEIN 237 ML CAN PO SCH ×2 (09:00→21:00)
[2022-04-13] MEDS: VITAMIN D 5,000 UNIT CAP PO SCH (09:00)
--- NOTE | 2022-04-13 10:06 | RAD REPORT ---
EXAM DESCRIPTION: RAD - Chest Single View - 04/13/2022 9:16 am CLINICAL HISTORY: VQ SCAN Chest pain. COMPARISON: Chest Single View dated 04/06/2022; Chest Single View dated 03/06/2019; Chest Single View dated 03/02/2019; Chest Single View dated 03/01/2019 FINDINGS: Portable technique limits examination quality. Mild bilateral pulmonary opacities are present which may represent pulmonary edema or infection. The heart is moderately enlarged in size. No displaced fractures. IMPRESSION: Mild CHF versus volume overload.
--- NOTE | 2022-04-13 10:08 | RAD REPORT ---
EXAM DESCRIPTION: NM - Vent Perfusion VQ Scan - 04/13/2022 9:30 am CLINICAL HISTORY: RO PE Chest pain, shortness of breath COMPARISON: No comparisons TECHNIQUE: 19.9mCi Xe-133 gas inhaled and 7.1mCi Tc-MAA IV. Planar ventilation scan was performed in posterior projection after Xe-133 gas inhalation (wash-in, e quilibrium, and wash-out phases) followed by perfusion scan with Tc-MAA IV in multiple projections. Examination is correlated with recent chest radiograph. FINDINGS: Normal ventilation with appropriate wash-out and no significant air-trapping. No mismatched segmental perfusion defect. IMPRESSION: Low probability of acute pulmonary embolism.
[2022-04-13] MEDS: APIXABAN 5 MG TABLET PO SCH ×2 (10:29→22:22)
[2022-04-13] MEDS: CALCITROL 0.25 MCG CAP PO SCH (10:29)
[2022-04-13] MEDS: MIDODRINE HCL 5 MG TABLET PO SCH ×3 (10:30→22:22)
[2022-04-13] MEDS: SPIRONOLACTONE 25 MG TABLET PO SCH ×2 (10:38→22:22)
[2022-04-13] MEDS: ASPIRIN 81 MG CHEWABLE TABLET PO SCH (10:38)
[2022-04-13] MEDS: ALBUMIN HUMAN 25% 12.5 GM, FUROSEMIDE 100 MG in NA CHLORIDE 0.9% 40 ML IV SCH ×2 (10:38→15:00)
[2022-04-13] MEDS: SILDENAFIL CITRATE 20 MG TABLET PO SCH ×2 (10:39→22:41)
[2022-04-13] MEDS: BUMETANIDE 1 MG TABLET PO SCH ×2 (10:39→22:22)
[2022-04-13 10:54] LABS: Arterial Blood Carboxyhemoglob 1.2 % (0-1.5); Blood Gas Oxyhemoglobin 86.9 % (94-97); Blood O2 Saturation 88.9 % (92-98.5)
[2022-04-13] MEDS: levoFLOXacin 250 MG TAB PO SCH (13:22)
[2022-04-13] MEDS ORDERED: LOPERAMIDE HCL 2 MG CAPSULE PO PRN (14:00)
--- NOTE | 2022-04-13 17:43 | RAD REPORT ---
EXAM DESCRIPTION: RAD - Chest Single View - 04/13/2022 5:35 pm CLINICAL HISTORY: O2 dropped COMPARISON: Chest Single View dated 04/13/2022; Chest Single View dated 04/06/2022; Chest Single View d ated 03/06/2019; Chest Single View dated 03/02/2019 FINDINGS: Lines: None. Lungs: Mild edema is similar to earlier in the day. Pleural: No significant pleural effusions or pneumothorax. Cardiac: Moderate cardiomegaly. Bones: No acute fractures. Other: IMPRESSION: Similar aeration of the lungs from 10 hours prior with mild edema.
[2022-04-13] MEDS: BENZONATATE 100 MG CAP PO PRN (22:41)
[2022-04-14] MEDS ORDERED: ALBUMIN HUMAN 25% 100 ML IV ONE (00:12)
[2022-04-14] MEDS ORDERED: NA CHLORIDE 0.9% 250 ML ONE (01:18)
[2022-04-14] MEDS ORDERED: ALBUMIN HUMAN 25% 50 ML IV ONE (01:26)
[2022-04-14] MEDS: LEVALBUTEROL 1.25 MG/3 ML NEB NEB SCH ×4 (02:00→20:00)
[2022-04-14 06:21] LABS: Potassium 3.7 mmol/L (3.5-5.1); Uric Acid 17.2 mg/dL (2.6-6.0)
[2022-04-14] MEDS: SILDENAFIL CITRATE 20 MG TABLET PO SCH ×2 (08:40→21:33)
[2022-04-14] MEDS: MIDODRINE HCL 5 MG TABLET PO SCH ×3 (08:41→20:15)
[2022-04-14] MEDS: BUMETANIDE 1 MG TABLET PO SCH ×2 (08:41→21:34)
[2022-04-14] MEDS: SPIRONOLACTONE 25 MG TABLET PO SCH ×2 (08:41→21:33)
[2022-04-14] MEDS: levoFLOXacin 250 MG TAB PO SCH (08:42)
[2022-04-14] MEDS: CALCITROL 0.25 MCG CAP PO SCH (08:42)
[2022-04-14] MEDS: APIXABAN 5 MG TABLET PO SCH ×2 (08:42→20:15)
[2022-04-14] MEDS: VITAMIN D 5,000 UNIT CAP PO SCH (08:42)
[2022-04-14] MEDS: ASPIRIN 81 MG CHEWABLE TABLET PO SCH (08:42)
[2022-04-14] MEDS: NYSTATIN PWDR 100000 UNIT/GM TOP SCH ×2 (08:42→20:16)
[2022-04-14] MEDS: COLLAGENASE 30 GM OINTMENT TOP SCH (08:43)
[2022-04-14] MEDS: ENSURE HIGH PROTEIN 237 ML CAN PO SCH (08:43)
[2022-04-14] MEDS: MUPIROCIN 2% OINT 22GM TUBE TOP SCH ×2 (08:43→20:15)
[2022-04-14] MEDS ORDERED: POTASSIUM CL SA 10 MEQ TAB PO ONE (08:47)
[2022-04-14] MEDS ORDERED: POTASSIUM 25 MEQ EFFERV TAB PO ONE (09:00)
[2022-04-14] MEDS: BENZONATATE 100 MG CAP PO PRN ×2 (09:17→16:29)
--- NOTE | 2022-04-14 10:54 | P.PN ---
Date of Service: 04/14/22 Vital Signs Temp Pulse Resp BP Pulse Ox 96.9 F 81 16 95/56 L 94 04/14/22 08:00 04/14/22 08:41 04/14/22 08:00 04/14/22 08:41 04/14/22 08:00 Medications Acetaminophen (Acetaminophen 500 Mg Tab) 500 mg PO Q4HP PRN PRN Reason: TEMP > 100' F Hydrocodone Bitart/Acetaminophen (Hydrocodone/Apap 5/325 Mg Tab) 1 tab PO Q6H PRN PRN Reason: Pain scale 5-7 (Moderate) Last Admin: 04/12/22 14:57 Dose: 1 tab Documented by: Albuterol Sulfate (Albuterol 2.5 Mg/3 Ml Neb Opal) 2.5 mg NEB [id number] PRN PRN Reason: SHORTNESS OF BREATH Apixaban (Apixaban 5 Mg Tablet) 5 mg PO BID [facility] Last Admin: 04/14/22 08:42 Dose: 5 mg Documented by: Aspirin (Aspirin 81 Mg Chewable Tablet) 81 mg PO DAILY [facility] Last Admin: 04/14/22 08:42 Dose: 81 mg Documented by: Benzonatate (Benzonatate 100 Mg Cap) 100 mg PO TID PRN PRN Reason: COUGH Last Admin: 04/14/22 09:17 Dose: 100 mg Documented by: Bumetanide (Bumetanide 1 Mg Tablet) 2 mg PO BID [facility] Last Admin: 04/14/22 08:41 Dose: 2 mg Documented by: Calcitriol (Calcitrol 0.25 Mcg Cap) 0.5 mcg PO DAILY [facility] Last Admin: 04/14/22 08:42 Dose: 0.5 mcg Documented by: Cholecalciferol (Vitamin D 5,000 Unit Cap) 5,000 unit PO DAILY [facility] Last Admin: 04/14/22 08:42 Dose: 5,000 unit Documented by: Collagenase (Collagenase 30 Gm Ointment) 1 appl TOP DAILY [facility] Last Admin: 04/14/22 08:43 Dose: 1 appl Documented by: Ipratropium [place] (Ipratropium Brom 0.5mg/2.5ml) 0.5 mg NEB [id number] PRN PRN Reason: sob Last Admin: 04/08/22 01:38 Dose: 0.5 mg Documented by: Levalbuterol HCl (Levalbuterol 1.25 Mg/3 Ml Neb) 1.25 mg NEB [id number] [facility] Last Admin: 04/14/22 08:00 Dose: Not Given Documented by: Levofloxacin (Levofloxacin 500 Mg Tab) 500 mg PO Q48H [facility]; Protocol Loperamide HCl (Loperamide Hcl 2 Mg Capsule) 2 mg PO 1X PRN PRN Reason: DIARRHEA Midodrine (Midodrine Hcl 5 Mg Tablet) 10 mg PO TID [facility] Last Admin: 04/14/22 08:41 Dose: 10 mg Documented by: Mupirocin (Mupirocin 2% Oint 22gm Tube) 1 appl TOP BID [facility] Last Admin: 04/14/22 08:43 Dose: Not Given Documented by: Nutritional Formula (Ensure High Protein 237 Ml Can) 237 ml PO BID [facility] Last Admin: 04/14/22 08:43 Dose: Not Given Documented by: Nystatin (Nystatin Pwdr [id number] Unit/Gm) 1 appl TOP BID [facility] Last Admin: 04/14/22 08:42 Dose: 1 appl Documented by: Ondansetron HCl (Ondansetron 4 Mg/2 Ml Vial) 4 mg IV Q6HP PRN PRN Reason: NAUSEA / VOMITING Sildenafil Citrate (Sildenafil Citrate 20 Mg Tablet) 10 mg PO BID [facility] Last Admin: 04/14/22 08:40 Dose: 10 mg Documented by: Sodium Chloride (Flush Normal Saline 10 Ml) 10 ml IV BID [facility] Last Admin: 04/14/22 08:43 Dose: 10 ml Documented by: Spironolactone (Spironolactone 25 Mg Tablet) 25 mg PO BID [facility] Last Admin: 04/14/22 08:41 Dose: 25 mg Documented by: Assessment/ Plan: Nephrology No dyspnea. RG No chest pain Persistent edema Nausea this morning and last night No acute events overnight Vitals, medications, blood work and imaging reviewed in the chart General: In no apparent distress, Oriented x3, Cooperative HEENT: Atraumatic Neck: Supple Respiratory: Clear to auscultation bilaterally Cardiovascular: Regular rate/rhythm, Edema Gastrointestinal: Soft and benign, Non-distended, No guarding Musculoskeletal: No clubbing, No contractures Integumentary: No cyanosis Neurological: Normal speech Blood work reviewed in the chart. Imagings Data: EXAM DESCRIPTION: US - Renal Ultrasound-Complete - 04/09/2022 4:13 pm CLINICAL HISTORY: Acute renal failure COMPARISON: 2019 FINDINGS: Poor evaluation of the kidneys secondary to body habitus. No gross abnormality of bladder IMPRESSION: Poor evaluation of the kidneys secondary to body habitus. No gross abnormality of bladder EXAM DESCRIPTION: RAD - Chest Single View - 04/06/2022 4:00 pm CLINICAL HISTORY: DYSPNEA Chest pain. COMPARISON: Chest Single View dated 03/06/2019; Chest Single View dated 03/02/2019; Chest Single View dated 03/01/2019; Chest Pa And Lat (2 Views) dated 02/25/2019; Chest Single View dated 02/24/2019 FINDINGS: Portable technique limits examination quality. The lungs are grossly clear. The heart is moderately enlarged in size. No displaced fractures. EXAM DESCRIPTION: CT - Thorax Wo Con CLINICAL HISTORY: Chest pain Need only CT chest without Contrast COMPARISON: Chest Single View dated 04/06/2022 FINDINGS: The lungs are clear. No pleural thickening or pleural effusion. No pneumothorax. Pulmonary arterial tree appears prominent which may indicate underlying pulmonary arterial hypertension. No axillary, mediastinal or hilar adenopathy. No concerning bony finding. No gross upper abdominal finding. All CT scans are performed using dose optimization technique as appropriate and may include automated exposure control or mA/KV adjustment according to patient size. IMPRESSION: No acute intrathoracic abnormality. Suspected underlying pulmonary arterial hypertension. Conclusions/Impression: BRANDON in the setting of hypotension & diuresis CKD III with proteinuria -No NSAIDs -Continue diuresis Hyponatremia -Monitor level Hypokalemia -Replete potassium prn -Continue Spironolactone 25 BID Hypomagnesemia -Replete prn Chronic hypotension -Continue Midodrine Diastolic CHF, A/C Pulmonary HTN Hypoxic respiratory failure, A/C Anasarca/ LE Edema -Continue diuresis as tolerated -Continue Revatio TID -V/Q scan reviewed Mild protein malnutrition -Maintain nutrition Acute E.coli Cystitis -Continue Levaquin
[2022-04-14] MEDS ORDERED: levoFLOXacin 750 MG TAB PO SCH (11:00)
[2022-04-14] MEDS: levoFLOXacin 500 MG TAB PO SCH (11:03)
[2022-04-15] MEDS: LEVALBUTEROL 1.25 MG/3 ML NEB NEB SCH ×4 (01:31→20:00)
[2022-04-15 04:31] LABS: Potassium 3.7 mmol/L (3.5-5.1)
--- NOTE | 2022-04-15 07:40 | P.PN ---
Date of Service: 04/15/22 Vital Signs Temp Pulse Resp BP Pulse Ox 97.8 F 71 16 120/70 97 04/15/22 04:00 04/15/22 04:00 04/15/22 04:00 04/15/22 04:00 04/15/22 04:00 Medications Acetaminophen (Acetaminophen 500 Mg Tab) 500 mg PO Q4HP PRN PRN Reason: TEMP > 100' F Hydrocodone Bitart/Acetaminophen (Hydrocodone/Apap 5/325 Mg Tab) 1 tab PO Q6H PRN PRN Reason: Pain scale 5-7 (Moderate) Last Admin: 04/12/22 14:57 Dose: 1 tab Documented by: Albuterol Sulfate (Albuterol 2.5 Mg/3 Ml Neb Opal) 2.5 mg NEB [id number] PRN PRN Reason: SHORTNESS OF BREATH Apixaban (Apixaban 5 Mg Tablet) 5 mg PO BID [facility] Last Admin: 04/14/22 20:15 Dose: 5 mg Documented by: Aspirin (Aspirin 81 Mg Chewable Tablet) 81 mg PO DAILY [facility] Last Admin: 04/14/22 08:42 Dose: 81 mg Documented by: Benzonatate (Benzonatate 100 Mg Cap) 100 mg PO TID PRN PRN Reason: COUGH Last Admin: 04/14/22 16:29 Dose: 100 mg Documented by: Bumetanide (Bumetanide 1 Mg Tablet) 2 mg PO BID [facility] Last Admin: 04/14/22 21:34 Dose: 2 mg Documented by: Calcitriol (Calcitrol 0.25 Mcg Cap) 0.5 mcg PO DAILY [facility] Last Admin: 04/14/22 08:42 Dose: 0.5 mcg Documented by: Cholecalciferol (Vitamin D 5,000 Unit Cap) 5,000 unit PO DAILY [facility] Last Admin: 04/14/22 08:42 Dose: 5,000 unit Documented by: Collagenase (Collagenase 30 Gm Ointment) 1 appl TOP DAILY [facility] Last Admin: 04/14/22 08:43 Dose: 1 appl Documented by: Ipratropium [place] (Ipratropium Brom 0.5mg/2.5ml) 0.5 mg NEB [id number] PRN PRN Reason: sob Last Admin: 04/08/22 01:38 Dose: 0.5 mg Documented by: Levalbuterol HCl (Levalbuterol 1.25 Mg/3 Ml Neb) 1.25 mg NEB [id number] [facility] Last Admin: 04/15/22 01:31 Dose: Not Given Documented by: Levofloxacin (Levofloxacin 500 Mg Tab) 500 mg PO Q48H [facility]; Protocol Last Admin: 04/14/22 11:03 Dose: 500 mg Documented by: Loperamide HCl (Loperamide Hcl 2 Mg Capsule) 2 mg PO 1X PRN PRN Reason: DIARRHEA Midodrine (Midodrine Hcl 5 Mg Tablet) 10 mg PO TID [facility] Last Admin: 04/14/22 20:15 Dose: 10 mg Documented by: Mupirocin (Mupirocin 2% Oint 22gm Tube) 1 appl TOP BID [facility] Last Admin: 04/14/22 20:15 Dose: Not Given Documented by: Nystatin (Nystatin Pwdr [id number] Unit/Gm) 1 appl TOP BID [facility] Last Admin: 04/14/22 20:16 Dose: 1 appl Documented by: Ondansetron HCl (Ondansetron 4 Mg/2 Ml Vial) 4 mg IV Q6HP PRN PRN Reason: NAUSEA / VOMITING Potassium Chloride (Potassium Cl Sa 10 Meq Tab) 20 meq PO 1X ONE Stop: 04/15/22 09:01 Sildenafil Citrate (Sildenafil Citrate 20 Mg Tablet) 10 mg PO BID [facility] Last Admin: 04/14/22 21:33 Dose: 10 mg Documented by: Sodium Chloride (Flush Normal Saline 10 Ml) 10 ml IV BID [facility] Last Admin: 04/14/22 20:15 Dose: 10 ml Documented by: Spironolactone (Spironolactone 25 Mg Tablet) 25 mg PO BID [facility] Last Admin: 04/14/22 21:33 Dose: 25 mg Documented by: Assessment/ Plan: Nephrology No dyspnea. RG No chest pain Persistent edema Episode of hypotension and hypoxia overnight Vitals, medications, blood work and imaging reviewed in the chart General: In no apparent distress, Oriented x3, Cooperative HEENT: Atraumatic Neck: Supple Respiratory: Clear to auscultation bilaterally Cardiovascular: Regular rate/rhythm, Edema Gastrointestinal: Soft and benign, Non-distended, No guarding Musculoskeletal: No clubbing, No contractures Integumentary: No cyanosis Neurological: Normal speech Blood work reviewed in the chart. Imagings Data: EXAM DESCRIPTION: US - Renal Ultrasound-Complete - 04/09/2022 4:13 pm CLINICAL HISTORY: Acute renal failure COMPARISON: 2018 FINDINGS: Poor evaluation of the kidneys secondary to body habitus. No gross abnormality of bladder IMPRESSION: Poor evaluation of the kidneys secondary to body habitus. No gross abnormality of bladder EXAM DESCRIPTION: RAD - Chest Single View - 04/06/2022 4:00 pm CLINICAL HISTORY: DYSPNEA Chest pain. COMPARISON: Chest Single View dated 03/06/2019; Chest Single View dated 03/02/2019; Chest Single View dated 03/01/2019; Chest Pa And Lat (2 Views) dated 02/25/2019; Chest Single View dated 02/24/2019 FINDINGS: Portable technique limits examination quality. The lungs are grossly clear. The heart is moderately enlarged in size. No displaced fractures. EXAM DESCRIPTION: CT - Thorax Wo Con CLINICAL HISTORY: Chest pain Need only CT chest without Contrast COMPARISON: Chest Single View dated 04/06/2022 FINDINGS: The lungs are clear. No pleural thickening or pleural effusion. No pneumothorax. Pulmonary arterial tree appears prominent which may indicate underlying pulmonary arterial hypertension. No axillary, mediastinal or hilar adenopathy. No concerning bony finding. No gross upper abdominal finding. All CT scans are performed using dose optimization technique as appropriate and may include automated exposure control or mA/KV adjustment according to patient size. IMPRESSION: No acute intrathoracic abnormality. Suspected underlying pulmonary arterial hypertension. Conclusions/Impression: BRANDON in the setting of hypotension & diuresis exacerabated by an episode of hypotension overnight CKD III with proteinuria -No NSAIDs -Continue diuresis as tolerated -Daily weight; Weight from 340 to 315 lbs Hyponatremia -Monitor level Hypokalemia -Replete potassium prn -Continue Spironolactone 25 BID while on Bumex Hypomagnesemia -Replete prn Chronic hypotension -Continue Midodrine Diastolic CHF, A/C Pulmonary HTN Hypoxic respiratory failure, A/C Anasarca/ LE Edema -Continue diuresis as tolerated -Continue Revatio TID Mild protein malnutrition -Maintain nutrition Acute E.coli Cystitis -Continue Levaquin
--- NOTE | 2022-04-15 07:43 | P.PN ---
Date of Service: 04/14/22 Subjective Subjective: Patient is clinically feeling a little bit better. Still complains of edema in the lower extremity. We will try to diurese her a little bit more aggressively. Physical Examination - Vital Signs reviewed Physical Exam General: Alert, In no apparent distress, Oriented x3, morbidly obese, on room air Respiratory: Diminished, Crackles/rales Cardiovascular: Normal pulses, Regular rate/rhythm, Normal S1 S2 Capillary refill: <2 Seconds Gastrointestinal: Normal bowel sounds, Soft and benign, Non-distended Musculoskeletal: Improving to 1+ bilateral pedal edemaright greater than left Neurological: No focal deficits Assessment And Plan Impression: Presumed acute diastolic CHF exacerbationwith anasarca History of atrial flutter Chronic hypotension Morbid obesity Hypomagnesemia/hypokalemia Chronic hypotension Acute acute kidney injury on CKD Plan: Echo w/ severe pulmonary hypertension -Severe pulmonary hypertension; pulmonary arterial pressure greater than 80 mmHg-pulmonary consult appreciated Hold diuretics. Renal function worsened Monitor labs closely; electrolytes corrected Still losing weight, overall weight loss of 30 pounds -Still borderline hypotension, continue high-dose midodrine; unclear reason for chronic hypotension, echo with normal ejection fraction Cardiology consult appreciated Started on Eliquis, continue for now Add physical therapy while inpatient
--- NOTE | 2022-04-15 07:48 | P.PN ---
Date of Service: 04/13/22 Subjective Subjective: Patient is clinically feeling a little bit better. Still complains of edema in the lower extremity. We will try to diurese her a little bit more aggressively. Physical Examination - Vital Signs reviewed Physical Exam General: Alert, In no apparent distress, Oriented x3, morbidly obese, on room air Respiratory: Diminished, Crackles/rales Cardiovascular: Normal pulses, Regular rate/rhythm, Normal S1 S2 Capillary refill: <2 Seconds Gastrointestinal: Normal bowel sounds, Soft and benign, Non-distended Musculoskeletal: Improving to 1+ bilateral pedal edemaright greater than left Neurological: No focal deficits Assessment And Plan Impression: Presumed acute diastolic CHF exacerbationwith anasarca History of atrial flutter Chronic hypotension Morbid obesity Hypomagnesemia/hypokalemia Chronic hypotension Acute acute kidney injury on CKD Plan: Echo w/ severe pulmonary hypertension -Severe pulmonary hypertension-pulmonary consult appreciated Adjust diuretics. Renal function worsened slowly Monitor labs closely; electrolytes corrected Continue monitoring renal function closely. Still losing weight, overall weight loss of 20 pounds -Still borderline hypotension, continue high-dose midodrine; unclear reason for chronic hypotension, may be due to systolic CHF Cardiology consult appreciated Started on Eliquis, continue for now Add physical therapy while inpatient
--- NOTE | 2022-04-15 07:51 | P.PN ---
Date of Service: 04/15/22 Subjective Subjective: Renal function shows progressive worsening. This may be related to ATN as blood pressure dropped the other day. Hold all diuretics at this time. Edema still significant with patient with severe right-sided heart failure. Prognosis is poor. Physical Examination - Vital Signs reviewed Physical Exam General: Alert, In no apparent distress, Oriented x3, morbidly obese, on room air Respiratory: Diminished, Crackles/rales Cardiovascular: Normal pulses, Regular rate/rhythm, Normal S1 S2 Capillary refill: <2 Seconds Gastrointestinal: Normal bowel sounds, Soft and benign, Non-distended Musculoskeletal: Improving to 1+ bilateral pedal edemaright greater than left Neurological: No focal deficits Assessment And Plan Impression: Presumed acute diastolic CHF exacerbationwith anasarca History of atrial flutter Chronic hypotension Morbid obesity Hypomagnesemia/hypokalemia Chronic hypotension Acute acute kidney injury on CKD Plan: Echo w/ severe pulmonary hypertension -Severe pulmonary hypertension; pulmonary arterial pressure greater than 80 mmHg-pulmonary consult appreciated Hold diuretics. Renal function worsened Monitor labs closely; electrolytes corrected Still losing weight, overall weight loss of 30 pounds -Still borderline hypotension, continue high-dose midodrine; unclear reason for chronic hypotension, echo with normal ejection fraction Cardiology consult appreciated Started on Eliquis, continue for now Add physical therapy while inpatient
[2022-04-15] MEDS: MUPIROCIN 2% OINT 22GM TUBE TOP SCH ×2 (09:00→20:30)
[2022-04-15] MEDS ORDERED: POTASSIUM CL SA 10 MEQ TAB PO ONE (09:00)
[2022-04-15] MEDS: CALCITROL 0.25 MCG CAP PO SCH (09:53)
[2022-04-15] MEDS: SILDENAFIL CITRATE 20 MG TABLET PO SCH ×2 (09:54→20:22)
[2022-04-15] MEDS: ASPIRIN 81 MG CHEWABLE TABLET PO SCH (09:54)
[2022-04-15] MEDS: VITAMIN D 5,000 UNIT CAP PO SCH (09:56)
[2022-04-15] MEDS: MIDODRINE HCL 5 MG TABLET PO SCH ×3 (09:56→20:22)
[2022-04-15] MEDS: APIXABAN 5 MG TABLET PO SCH ×2 (09:56→20:22)
[2022-04-15] MEDS: NYSTATIN PWDR 100000 UNIT/GM TOP SCH ×2 (09:57→20:29)
[2022-04-15] MEDS: COLLAGENASE 30 GM OINTMENT TOP SCH (09:58)
[2022-04-16] MEDS: LEVALBUTEROL 1.25 MG/3 ML NEB NEB SCH ×4 (01:28→20:00)
[2022-04-16 08:32] LABS: Potassium 3.8 mmol/L (3.5-5.1)
[2022-04-16] MEDS: SILDENAFIL CITRATE 20 MG TABLET PO SCH ×2 (08:54→20:44)
[2022-04-16] MEDS: CALCITROL 0.25 MCG CAP PO SCH (08:57)
[2022-04-16] MEDS: ASPIRIN 81 MG CHEWABLE TABLET PO SCH (08:57)
[2022-04-16] MEDS: APIXABAN 5 MG TABLET PO SCH ×2 (08:57→20:45)
[2022-04-16] MEDS: VITAMIN D 5,000 UNIT CAP PO SCH (08:57)
[2022-04-16] MEDS: MIDODRINE HCL 5 MG TABLET PO SCH ×3 (08:58→20:45)
[2022-04-16] MEDS: MUPIROCIN 2% OINT 22GM TUBE TOP SCH ×2 (09:00→20:40)
[2022-04-16] MEDS: levoFLOXacin 500 MG TAB PO SCH (12:18)
[2022-04-16] MEDS: HYDROCODONE/APAP 5/325 MG TAB PO PRN (13:18)
[2022-04-16] MEDS: NYSTATIN PWDR 100000 UNIT/GM TOP SCH ×2 (13:31→20:46)
[2022-04-16] MEDS: COLLAGENASE 30 GM OINTMENT TOP SCH (13:31)
--- NOTE | 2022-04-16 16:27 | PN ---
Date of Progress Note: 04/16/2022 Subjective: The patient was seen on April 16, 2022, at [facility]. S he is seen on second floor in room #209. The patient is alert, awake, and comfortable, able to answe r questions. She states her breathing is stable compared to yesterday. She denies any headache. De nies any nausea. She does have some discomfort over the belly that is diffuse. That is not new abou t the same as yesterday and the prior day. She has her right lower extremity cleanly dressed. Says that she had an injury there, but does not think there is any infection. She has urinary tract infec tion, but does not complain of any dysuria. Currently getting antibiotics. The patient overnight do es not complain of any events. Objective: Vital Signs: On evaluation of her vitals, the patient's vitals were stable. Blood press ures have been low at times. Last blood pressure was actually 88/53, before that 101/49, before that 115/61. Her O2 sats are reasonable between 94% to 97% on 2 L nasal cannula. She is afebrile. Puls e is about 60-70 and regular, respirations around 14-16 and comfortable. Lungs: Clear anteriorly with decreased breath sounds at the bases and poor air entry at the bases. Abdomen: Soft. Extremities: Reveal edema bilaterally. The patient does have a dressing on her right lower extremit y on the foot. Medications: In the chart reviewed. The patient is on hydrocodone p.r.n. q.6 hours. She is on Tyle nol q.4 hours. She is on Eliquis. She is on Tessalon Perles t.i.d. She is on Rocaltrol. She is on vitamin D with cholecalciferol as well. She is on Santyl ointment to her right foot. Ipratropium, Xopenex. She is getting Levaquin 500 mg p.o. q.48 hours. She is on loperamide for diarrhea p.r.n. She is on midodrine 10 mg p.o. t.i.d. She is on nystatin application powder. She is on Zofran p.r.n . She is on Revatio, sildenafil is the generic p.o. b.i.d. at 10 mg that is being supervised by Dr. Treadwell, the thermodynamic physicist. Laboratory Data: Reviewed. Labs show WBC count 6.8, hemoglobin 15.7, hematocrit 48.2, platelet coun t of 201. Chemistry shows sodium 134, potassium 3.8, chloride 94, bicarb is 27, BUN is 90, creatinin e is 2.85. This is improved compared to yesterday when it was at 3. Assessment And Plan: 1.Chronic kidney disease/acute kidney injury. The patient with complicated hemodynamics with low bl ood pressure, anasarca, volume overload, unable to tolerate diuretics too well given her low blood pr essures. The patient also has urinary tract infection, currently on Levaquin for that with Escherich ia coli. Blood cultures are being ordered and are currently pending. The patient clinically looks w ell. Afebrile with white blood cell counts in normal range. 2.Acute kidney injury. Continue gentle diuresis as tolerated. Currently off diuresis due to her lo w blood pressure. Avoid NSAIDs. Avoid dye. Monitor Chem-7. 3.Hyponatremia, reasonably stable with sodium at 134. 4.Hypokalemia, reasonably stable at 3.8, replete as needed. 5.Chronic hypertension. The patient on midodrine currently. Continue to monitor. The patient's si ldenafil has been adjusted by Dr. Treadwell. 6.Pulmonary hypertension. Transfer was attempted, but apparently the patient has not been able to s ecure a location and the patient is currently with sildenafil 10 mg b.i.d., monitored by Dr. Treadwell . Chronic issue, will need further monitoring once acute issues are resolved as outpatient as well. 7.Protein malnutrition. Continue to encourage Vinny's diet in the setting of inflammation, urinary tract infection. This is perhaps a little bit worse. 8.Acute cystitis with Escherichia coli, on Levaquin. We will also check blood cultures. Continue t o monitor hemodynamics. The patient clinically seems stable. Breathing comfortably. Would get bloo d cultures also to rule out any sepsis and may need to repeat blood cultures if condition changes. /CHENG Voice ID: [id number] Report ID: [id number]
[2022-04-17] MEDS: LEVALBUTEROL 1.25 MG/3 ML NEB NEB SCH ×5 (01:10→20:00)
[2022-04-17] MEDS ORDERED: POTASSIUM CL SA 10 MEQ TAB PO ONE ×2 (08:00→17:01)
[2022-04-17] MEDS: COLLAGENASE 30 GM OINTMENT TOP SCH (09:00)
[2022-04-17] MEDS: NYSTATIN PWDR 100000 UNIT/GM TOP SCH (09:00)
[2022-04-17] MEDS: MUPIROCIN 2% OINT 22GM TUBE TOP SCH ×2 (09:00→21:00)
[2022-04-17] MEDS: SILDENAFIL CITRATE 20 MG TABLET PO SCH ×2 (09:12→21:08)
[2022-04-17] MEDS: ASPIRIN 81 MG CHEWABLE TABLET PO SCH (09:12)
[2022-04-17] MEDS: CALCITROL 0.25 MCG CAP PO SCH (09:13)
[2022-04-17] MEDS: VITAMIN D 5,000 UNIT CAP PO SCH (09:13)
[2022-04-17] MEDS: APIXABAN 5 MG TABLET PO SCH ×2 (09:13→21:08)
[2022-04-17] MEDS: MIDODRINE HCL 5 MG TABLET PO SCH ×3 (09:14→21:08)
--- NOTE | 2022-04-17 23:39 | P.PN ---
Date of Service: 04/16/22 Subjective Subjective: Patient continues to remain stable. Remains with lower extremity edema. Renal function has slowly worsened as well. We are having to hold her diuretics. However, because of the low blood pressure we have not been able to diurese her effectively. We will go ahead and add midodrine. She denies any complaints of shortness of breath. She is wanting to try to get home since she was denied at the pulmonary hypertension clinic at [facility]. Physical Examination - Vital Signs reviewed Physical Exam General: Alert, In no apparent distress, Oriented x3, morbidly obese, on room air Respiratory: Diminished, Basilar crackles/rales Cardiovascular: Normal pulses, Regular rate/rhythm, Normal S1 S2 Gastrointestinal: Normal bowel sounds, Soft and benign, Non-distended Musculoskeletal: Improving to 1+ bilateral pedal edemaright greater than left Neurological: Normal speech, Normal strength at 5/5 x4 extr, Sensation intact, Cranial nerves 3-12 intact Assessment And Plan Impression: 1. Presumed acute diastolic CHF exacerbationwith anasarca; severe pulmonary hypertension(pulmonary arterial pressures of greater than 80) 2. History of atrial flutter 3. Chronic hypotension 4. Morbid obesity 5. Hypomagnesemia/hypokalemia 6. Acute acute kidney injury on CKD Plan: Echo w/ severe pulmonary hypertension (pulmonary arterial pressures of greater than 80 mmHg) -Continue with sildenafil Holding diuretics secondary to hypotension and ATN Monitor labs closely; continue to monitor renal function Still losing weight, overall weight loss of 20 pounds -Still borderline hypotension, continue high-dose midodrine; Cardiology consult appreciated; no aggressive intervention at this time Continue Eliquis Continue physical therapy
[2022-04-18] MEDS: ALBUMIN HUMAN 25% 50 ML IV SCH ×2 (05:17→05:30)
[2022-04-18 07:02] LABS: Absolute Lymphocytes (CBC) 1.3 K/uL (0.7-4.9); Hematocrit 46.5 % (36.0-45.0); Lymphocytes % 11.9 % (15.3-44.8); MPV 7.3 fL (7.6-11.3); RBC Red Blood Cell Count 4.77 M/uL (3.86-4.86)
[2022-04-18 07:20] LABS: Albumin 3.9 g/dL (3.4-5.0); Bilirubin Total 2.4 mg/dL (0.2-1.0); Potassium 3.9 mmol/L (3.5-5.1); Protein, Total 7.7 g/dL (6.4-8.2)
--- NOTE | 2022-04-18 08:20 | RAD REPORT ---
EXAM DESCRIPTION: RAD - Chest Single View - 04/18/2022 5:56 am CLINICAL HISTORY: pneumonia Chest pain. COMPARISON: Chest Single View dated 04/13/2022; Chest Single View dated 04/13/2022; Chest Single View da rio 04/06/2022; Chest Single View dated 03/06/2019 FINDINGS: Portable technique limits examination quality. The lungs are grossly clear. The heart is moderately enlarged in size. No displaced fractures.
[2022-04-18] MEDS: MUPIROCIN 2% OINT 22GM TUBE TOP SCH (09:00)
[2022-04-18] MEDS: COLLAGENASE 30 GM OINTMENT TOP SCH (09:00)
[2022-04-18] MEDS: VITAMIN D 5,000 UNIT CAP PO SCH (09:03)
[2022-04-18] MEDS: CALCITROL 0.25 MCG CAP PO SCH (09:03)
[2022-04-18] MEDS: ASPIRIN 81 MG CHEWABLE TABLET PO SCH (09:03)
[2022-04-18] MEDS: MIDODRINE HCL 5 MG TABLET PO SCH ×2 (09:03→13:27)
[2022-04-18] MEDS: APIXABAN 5 MG TABLET PO SCH (09:04)
[2022-04-18 09:43] VITALS: O2SAT 91
[2022-04-18] MEDS: SILDENAFIL CITRATE 20 MG TABLET PO SCH (10:24)
[2022-04-18 13:06] VITALS: BP 90/55; TEMP 96.9
--- NOTE | 2022-04-18 14:23 | PN ---
Date of Progress Note: 04/18/2022 Subjective: The patient is alert, awake, more interactive, feels better, breathing comfortably, off oxygen, O2 sats are in 100%. Lungs are clear on examination. The patient denies any headache, nause a, vomiting. She has been able to get around carefully and get up out of bed. Her blood pressure la st was 113/76. After that, the current blood pressure done at about 7 a.m. this morning was 99/54, p ulse is 72, respirations around 18, O2 sats 100% on room air. The patient is afebrile. The blood pr essure is somewhat better and improved compared to yesterday when it was running in systolic of 80s. Physical Examination: Lungs: On examination of her lungs clear to auscultation. Heart: Sounds regular and heart rate about 70. Abdomen: Soft. The patient is obese. Extremities: Revealed some edema, but somewhat improved overall. The patient does seem to have some lymphedema as well. Laboratory Data: WBC count 10.9, hemoglobin 15.4, hematocrit 46.5, platelet count is 162. Chemistry shows sodium 134, potassium 3.9, chloride 95, bicarb 28, BUN 83, creatinine 2.47, calcium 10.1, magn esium 2.0. BNP level is 12,809. Albumin level is 3.9. Assessment And Plan: The patient with congestive heart failure. The patient with chronic kidney dis ease with component of acute kidney injury, currently does look improve overall. X-ray does not reve al any significant congestion or congestive heart failure. The patient is on room air and breathing with O2 sats close to 100%. 1.Chronic kidney disease, acute kidney injury. The patient is to follow up with Dr. Luu once di stevie. The patient has information to make appointment. Volume status seems to be close to euvol emic at this point based on x-ray being clear, breathing comfortable, but the patient does have hyper tension pulmonary and also has chronic respiratory failure with cardiac and pulmonary conditions. Th e patient understands the risk of getting short of breath without diuretics, but at this point, she s eems to be stable. She needs to get her medications reviewed by Cardiology, Pulmonary, and Nephrolog y given her frail condition and multiple comorbid diseases so that medications are continuously adjus rio based on her condition at the time. The patient is off the spironolactone and Lasix currently, b ut may need to resume that in the near future. I have advised her to watch her blood pressure at jennifer e and if her systolic is less than 110 to not take the Lasix, to start perhaps Lasix at one time a da y and follow up with Dr. 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 If any change in condition, she will need to come back to the ER. With those recommendations, the adam ent is reasonably stable to go home from the kidney point of view if also cleared by Cardiology and P ulmonary. 2.Acute kidney injury, somewhat stabilized at this point. The patient is not getting significant di uresis currently and her creatinine has stabilized, blood pressure is improved, and breathing has sta yed well. Continue to hold off on nephrotoxins. I have advised her to avoid sodium in her diet and also to monitor her not to take any NSAIDs. 3.Hyponatremia, reasonably stable. Continue to monitor. 4.Hypokalemia, reasonably stable. Replete as needed. 5.Pulmonary hypertension following with Dr. Treadwell. Advised to keep appointment if she gets disch arged. 6.Acute cystitis, treated with Levaquin. Treatment as per the primary team. /CHENG Voice ID: [id number] Report ID: [id number]
--- NOTE | 2022-04-18 14:59 | P.DS ---
Admission Date: 04/06/22 Discharge Date: 04/18/22 Disposition: ROUTINE DISCHARGE Discharge Condition: GOOD Reason for Admission: Generalized swelling Brief History of Present Illness: Patient is a 61-year-old female with past medical history of CAD, [place] s/p CABG, NIDDM, HTN, HLD who presented to the ED via EMS with complaints of chest pain and hypertension. 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 She could not get it relieved then noticed that her blood pressure was very elevated, took clonidine and NG, and called EMS. BP was 208/120 upon EMS arrival, they gave 324 mg of aspirin, 5 mg metoprolol, and Nitropaste. EKG in the ED showed NSR with left ventricular hypertrophy. Troponin negative. Patient states that her chest pain is now relieved. 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 She states that she just recently stopped taking Plavix. ED provider wishes to admit patient for observation. Hospital Course: Acute medicine floor she was asked to be evaluated by cardiology and had diuretic therapy adjusted. Her blood pressure was noted to be borderline low so she had initial augmentation of blood pressure with midodrine. She was evaluated by cardiology and had echocardiogram done that revealed elevated pulmonary pressure with about 80 mmHg reading. She also had pulmonary and pulmonary physician evaluation as she had sildenafil doses adjusted for appropriate management of pulmonary pretension. Nephrology also evaluated patient because of her kidney injury and she subsequently was started on 10 to diuresis she had a weight and volume status monitor. Over the course of hospital stay she lost approximately 20 pound and initial anasarca resolved. She was deemed stable for discharge today. Nephrology cleared patient from kidney point of view as her kidney function remained stable. At the time of discharge she had a diuretic therapy held. She did have mild hyponatremia which remained stable despite initial diuretic therapy. She will follow-up with pulmonary physician for management of her pulmonary pretension also follow-up with cardiology as scheduled. She has scheduled outpatient visit with nephrology for management of her kidney function abnormality. Vital Signs/Physical Exam: Temp Pulse Resp BP Pulse Ox 96.9 F 71 20 90/55 L 93 04/18/22 12:00 04/18/22 12:00 04/18/22 12:00 04/18/22 12:00 04/18/22 12:00 General: Alert, Oriented x3 HEENT: Atraumatic, Normocephalic Neck: Supple Respiratory: Normal air movement Cardiovascular: Regular rate/rhythm, Normal S1 S2 Gastrointestinal: Soft and benign Musculoskeletal: No swelling Neurological: Normal speech, Normal strength at 5/5 x4 extr Laboratory Data at Discharge: WBC 10.9 K/uL (4.3-10.9) D 04/18/22 06:44 Hgb 15.4 g/dL (12.0-15.0) H 04/18/22 06:44 Hct 46.5 % (36.0-45.0) H 04/18/22 06:44 Plt Count 162 K/uL (152-406) 04/18/22 06:44 Sodium 134 mmol/L (136-145) L 04/18/22 06:44 Potassium 3.9 mmol/L (3.5-5.1) 04/18/22 06:44 BUN 83 mg/dL (7-18) H 04/18/22 06:44 Creatinine 2.47 mg/dL (0.55-1.3) H 04/18/22 06:44 Glucose 127 mg/dL (74-106) H 04/18/22 06:44 Uric Acid 17.2 mg/dL (2.6-6.0) H D 04/14/22 05:42 Phosphorus 3.3 mg/dL (2.5-4.9) 04/10/22 03:32 Magnesium 2.0 mg/dL (1.8-2.4) 04/18/22 06:44 Total Bilirubin 2.4 mg/dL (0.2-1.0) H 04/18/22 06:44 AST 24 U/L (15-37) 04/18/22 06:44 ALT 40 U/L (12-78) 04/18/22 06:44 Alkaline Phosphatase 57 U/L (45-117) 04/18/22 06:44 Home Medications: Apixaban [Eliquis] 5 mg PO BID tablet 03/11/19 Benzonatate [Tessalon Perle*] 100 mg PO TID PRN cap 03/11/19 Calcitrol [Rocaltrol*] 0.5 mcg PO DAILY cap 03/11/19 Cholecalciferol (Vitamin D3) [Vitamin D 5,000 IU Cap*] 5,000 unit PO DAILY cap 03/11/19 Collagenase [Santyl Ointment*] 1 appl TOP DAILY tube 03/11/19 Levalbuterol [Xopenex*] 1.25 mg NEB [id number] vial 03/11/19 Midodrine HCl [Proamatine*] 10 mg PO TID tab 03/11/19 Mupirocin Oint [Bactroban 2% Ointment*] 1 appl TOP BID tube 03/11/19 Nystatin Powder [Mycostatin (Powder)*] 1 appl TOP BID btl 03/11/19 Sildenafil Citrate [Revatio*] 10 mg PO BID 30 Days #60 tablet 04/18/22 New Medications: Sildenafil Citrate [Revatio*] 10 mg PO BID 30 Days #60 tablet Diet: AHA Activity: Ad susanne Followup: Ron Treadwell MD [ACTIVE - CAN ADMIT] - Tobin Luu DO [ACTIVE - CAN ADMIT] - Reggie Pedraza MD [ACTIVE - CAN ADMIT] - RADHA GARCIA [Primary Care Provider] -
== END 2022-04-18 15:37 | disposition home or self-care (01) | DRG 291 ==
LOC: ER 14:11 → ERHOLD 16:40 → 2ND 04-07 07:31
PROVIDERS: ADMIT Internal Medicine; ATTEND Hospitalist
PROC: 0T9B70Z Drainage of Bladder with Drainage Device, Via Natural or Artificial Opening (ICD-10-PCS; principal; 2022-04-11)
DX: I13.0 Hypertensive heart and chronic kidney disease with heart failure and stage 1 through stage 4 chronic kidney disease, or unspecified chronic kidney disease (principal); I50.33 Acute on chronic diastolic (congestive) heart failure; J96.01 Acute respiratory failure with hypoxia; I48.92 Unspecified atrial flutter; N17.9 Acute kidney failure, unspecified; E44.1 Mild protein-calorie malnutrition; N30.00 Acute cystitis without hematuria; Z68.43 Body mass index [BMI] 50.0-59.9, adult; E66.01 Morbid (severe) obesity due to excess calories; I95.9 Hypotension, unspecified; E83.42 Hypomagnesemia; E87.6 Hypokalemia; N18.30 Chronic kidney disease, stage 3 unspecified; B96.20 Unspecified Escherichia coli [E. coli] as the cause of diseases classified elsewhere; I27.21 Secondary pulmonary arterial hypertension; I70.0 Atherosclerosis of aorta; I95.1 Orthostatic hypotension; I25.10 Atherosclerotic heart disease of native coronary artery without angina pectoris; E11.22 Type 2 diabetes mellitus with diabetic chronic kidney disease; E78.5 Hyperlipidemia, unspecified; Z20.822 Contact with and (suspected) exposure to COVID-19; Z87.891 Personal history of nicotine dependence; I25.2 Old myocardial infarction; Z95.1 Presence of aortocoronary bypass graft
CPT/HCPCS: 36415; 51702; 71045; 71250; 76770; 78582; 80048; 80053; 80076; 81003; 81015; 82533; 82570; 82805; 83735; 83880; 84100; 84132; 84156; 84300; 84484; 84550; 85025; 87040; 87077; 87086; 87088; 87186; 93005; 93306; 93971; 94640; 96374; 96375; 99285; A9540; A9558; J1940; J2405; J2930; J3475; J3590; J7050; P9047; U0003